=== PATIENT | male | born 1955 | race American Indian/Alaskan Native ===

== ENCOUNTER 2018-05-18 19:40 | Emergency (ER) | payer MEDICARE, OTHER ==
[2018-05-18 19:52] VITALS: BP 124/84; PULSE 89; RESP 20; TEMP 98.9
[2018-05-18] MEDS ORDERED: KETOROLAC 30 MG/ML 1 ML VIAL IM STA (20:40)
--- NOTE | 2018-05-18 21:02 | US ---
EXAMINATION TYPE: US venous doppler duplex LE RT DATE OF EXAM: 05/18/2018 8:55 PM COMPARISON: NONE CLINICAL HISTORY: Pain, swelling, redness right leg. SIDE PERFORMED: Right TECHNIQUE: The lower extremity deep venous system is examined utilizing real time linear array sonog delaney with graded compression, doppler sonography and color-flow sonography. VESSELS IMAGED: External Iliac Vein (EIV) Common Femoral Vein Deep Femoral Vein Greater Saphenous Vein * Femoral Vein Popliteal Vein Small Saphenous Vein * Proximal Calf Veins (* superficial vessels) Right Leg: Negative for DVT IMPRESSION: Grayscale, color doppler, spectral doppler imaging performed of the deep veins of the lo wer extremities. There is normal flow, compressibility, vascular waveforms. No evidence of deep higinio ous thrombosis at or above the right knee.
--- NOTE | 2018-05-18 21:28 | ED ---
General Adult HPI - General Chief complaint: Extremity Problem,Nontraumatic Stated complaint: Edema Time Seen by Provider: 05/18/18 19:54 Source: patient, RN notes reviewed Mode of arrival: ambulatory Limitations: no limitations - History of Present Illness Initial comments: 62-year-old male presents to the emergency department for a chief complaint of right lower extremity pain and swelling for the past few days. Patient states it is painful to walk. Patient states it is much more swollen than his other leg. Patient denies any fevers or chills at home. Patient denies any history of diabetes. No history of blood clots. Patient has not taken anything for the pain. Patient has no other complaints at this time including shortness of breath, chest pain, abdominal pain, nausea or vomiting, headache, or visual changes. - Related Data Home Medications Medication Instructions Recorded Confirmed HYDROcodone/APAP 10-325MG [[place] 10 - 325 mg PO Q8HR PRN 09/04/16 05/19/17 10-325] Previous Rx's Medication Instructions Recorded ARIPiprazole IM [Abilify Maintena] 400 mg IM QMONTH #1 vial 09/15/16 ARIPiprazole [Abilify] 20 mg PO HS #12 tab 09/15/16 Benztropine Mesylate [Cogentin] 0.5 mg PO BID PRN #60 tab 09/15/16 Carvedilol [Coreg] 3.125 mg PO BID-W/MEALS #60 tab 09/15/16 Divalproex Sodium [Divalproex 1,500 mg PO HS #90 tab.er.24h 09/15/16 Sodium ER] Furosemide [Lasix] 40 mg PO BID@0900,1600 #30 tab 09/15/16 Levothyroxine Sodium [Synthroid] 50 mcg PO DAILY@0630 #30 tab 09/15/16 [place] Carbonate ER [Lithobid] 450 mg PO DAILY #30 tablet.er 09/15/16 [place] Carbonate ER [Lithobid] 900 mg PO HS #60 tablet.er 09/15/16 Losartan [Cozaar] 25 mg PO DAILY #30 tab 09/15/16 Nicotine 21Mg/24Hr Patch [Habitrol] 1 patch TRANSDERM DAILY #14 patch 09/15/16 Potassium Chloride ER [K-Dur 20] 20 meq PO BID #30 tab.er.prt 09/15/16 traZODone HCL [Desyrel] 50 mg PO HS #30 tab 09/15/16 Amoxicillin/Potassium Clav 1 tab PO Q12HR #20 tab 05/18/18 [Augmentin 875-125 Tablet] Allergies Allergy/AdvReac Type Severity Reaction Status Date / Time haloperidol [From Haldol] Allergy Unknown Verified 05/18/18 19:51 haloperidol lactate Allergy Unknown Verified 05/18/18 19:51 [From Haldol] Phenothiazines Allergy Unknown Verified 05/18/18 19:51 Review of Systems ROS Statement: Those systems with pertinent positive or pertinent negative responses have been documented in the HPI. ROS Other: All systems not noted in ROS Statement are negative. Past Medical History Past Medical History: Heart Failure, Hypertension, Thyroid Disorder History of Any Multi-Drug Resistant Organisms: None Reported Past Surgical History: Orthopedic Surgery Past Psychological History: Anxiety, Depression, Schizophrenia Smoking Status: Current every day smoker Past Alcohol Use History: Occasional Past Drug Use History: None Reported General Exam Limitations: no limitations General appearance: alert, in no apparent distress Head exam: Present: atraumatic, normocephalic, normal inspection Eye exam: Present: normal appearance. Absent: scleral icterus, conjunctival injection ENT exam: Present: normal exam, mucous membranes moist Neck exam: Present: normal inspection, full ROM. Absent: tenderness, meningismus, lymphadenopathy Respiratory exam: Present: normal lung sounds bilaterally. Absent: respiratory distress, wheezes, rales, rhonchi, stridor Cardiovascular Exam: Present: regular rate, normal rhythm, normal heart sounds. Absent: systolic murmur, diastolic murmur, rubs, gallop, clicks Extremities exam: Present: full ROM (full ROM of the right knee and ankle), tenderness (tenderness to the right lower extremity on the anterior and posterior aspects.), normal capillary refill (cap refill < 2 seconds and pedal pulse 2+ in the RLE.), pedal edema (2+ pitting edema of the RLE), calf tenderness (neg james sign), other (Patient has erythema and edema of the circumferential right lower leg. Warm to touch.) Course Vital Signs 05/18/18 19:48 Temperature 98.9 F Pulse Rate 89 Respiratory 20 Rate Blood Pressure 124/84 O2 Sat by Pulse 98 Oximetry Medical Decision Making - Medical Decision Making 62-year-old male presents to the emergency department for a chief complaint of right lower extremity pain. This has been going on for the past few days. Patient denies fevers or chills at home. Patient denies history of diabetes. No history of blood clots. Vitals within normal limits. On exam patient does have erythema noted of the right lower leg as well as significant swelling and edema. Neurovascular intact with pedal pulse 2+ in the right lower extremity. Patient adamantly refused blood work. Patient left AMA without notifying anyone before ultrasound could be read. Negative for DVT. Patient likely has a cellulitis that I would recommend IV antibiotics and admission for. Per Dr Herman , will attempt to call in oral antibiotics for patient with advice to return to ER. Disposition Clinical Impression: Leg pain, left Disposition: Left Against Medical Advice Prescriptions: Amoxicillin/Potassium Clav [Augmentin 875-125 Tablet] 1 tab PO Q12HR #20 tab Is patient prescribed a controlled substance at d/c from ED?: No Referrals: [facility] [Primary Care Provider] - 1-2 days Time of Disposition: 21:28
== END 2018-05-18 21:06 | disposition left against medical advice (07) ==
LOC: EC 19:40
DX: M79.605 Pain in left leg (principal); R60.0 Localized edema; L53.9 Erythematous condition, unspecified; M79.604 Pain in right leg; F17.200 Nicotine dependence, unspecified, uncomplicated; Z88.8 Allergy status to other drugs, medicaments and biological substances
CPT/HCPCS: 99285

== ENCOUNTER 2018-05-24 15:50 | Inpatient (IN) | payer MEDICARE, MEDICAID ==
--- NOTE | 2018-05-24 16:25 | ED ---
General Adult HPI - General Chief complaint: Psychiatric Symptoms Stated complaint: Petition Time Seen by Provider: 05/24/18 15:55 Source: patient, police, RN notes reviewed, old records reviewed Mode of arrival: ambulatory Limitations: no limitations - History of Present Illness Initial comments: This is a 62-year-old male the ER for evaluation. This patient presents today for evaluation regards to altered mental state, aggression, patient is in court petition for psychiatric evaluation - Related Data Home Medications Medication Instructions Recorded Confirmed Cephalexin [Keflex] 500 mg PO Q8HR 05/22/18 05/24/18 Hydrochlorothiazide 12.5 mg PO DAILY 05/22/18 05/24/18 Multivit-Min/FA/Lycopen/Lutein 1 tab PO DAILY 05/22/18 05/24/18 [Centrum Silver Men Tablet] buPROPion XL [Wellbutrin Xl] 150 mg PO DAILY 05/22/18 05/24/18 ARIPiprazole [Abilify] 10 mg PO DAILY 05/24/18 05/24/18 Previous Rx's Medication Instructions Recorded Carvedilol [Coreg] 3.125 mg PO BID-W/MEALS #60 tab 09/15/16 [place] Carbonate ER [Lithobid] 450 mg PO DAILY #30 tablet.er 09/15/16 [place] Carbonate ER [Lithobid] 900 mg PO HS #60 tablet.er 09/15/16 Allergies Allergy/AdvReac Type Severity Reaction Status Date / Time haloperidol [From Haldol] Allergy Unknown Verified 05/24/18 16:09 haloperidol lactate Allergy Unknown Verified 05/24/18 16:09 [From Haldol] Phenothiazines Allergy Unknown Verified 05/24/18 16:09 Review of Systems ROS Statement: Those systems with pertinent positive or pertinent negative responses have been documented in the HPI. ROS Other: All systems not noted in ROS Statement are negative. Past Medical History Past Medical History: Heart Failure, Hypertension, Thyroid Disorder History of Any Multi-Drug Resistant Organisms: None Reported Past Surgical History: Orthopedic Surgery Past Psychological History: Anxiety, Depression, Schizophrenia Smoking Status: Current every day smoker Past Alcohol Use History: Occasional Past Drug Use History: None Reported General Exam Limitations: no limitations General appearance: alert, in no apparent distress Head exam: Present: atraumatic, normocephalic, normal inspection Eye exam: Present: normal appearance, PERRL, EOMI. Absent: scleral icterus, conjunctival injection, periorbital swelling ENT exam: Present: normal exam, mucous membranes moist Neck exam: Present: normal inspection. Absent: tenderness, meningismus, lymphadenopathy Respiratory exam: Present: normal lung sounds bilaterally. Absent: respiratory distress, wheezes, rales, rhonchi, stridor Cardiovascular Exam: Present: regular rate, normal rhythm, normal heart sounds. Absent: systolic murmur, diastolic murmur, rubs, gallop, clicks GI/Abdominal exam: Present: soft, normal bowel sounds. Absent: distended, tenderness, guarding, rebound, rigid Extremities exam: Present: normal inspection, full ROM, normal capillary refill. Absent: tenderness, pedal edema, joint swelling, calf tenderness Back exam: Present: normal inspection Neurological exam: Present: alert, oriented X3, CN II-XII intact Psychiatric exam: Present: normal affect, normal mood Skin exam: Present: warm, dry, intact, normal color. Absent: rash Course Vital Signs 05/24/18 15:53 Temperature 99.3 F Pulse Rate 86 Respiratory 18 Rate Blood Pressure 124/81 O2 Sat by Pulse 99 Oximetry - Reevaluation(s) Reevaluation #1: 05/24/18 16:25 Patient medically cleared and seen by psych Medical Decision Making - Medical Decision Making 62 male the ER for evaluation will be admitted for psychiatric evaluation and treatment Disposition Clinical Impression: Acute psychosis, Schizoaffective disorder, bipolar type Disposition: TRANSFER TO PSYCH HOSP/UNIT Condition: Fair Is patient prescribed a controlled substance at d/c from ED?: No Referrals: [facility] [Primary Care Provider] - 1-2 days
[2018-05-24 16:32] LABS: Amphetamine Screen,Urine Not Detected (NotDetected); Barbiturate Screen,Urine Not Detected (NotDetected); Benzodiazepines Screen,Urine Not Detected (NotDetected); Cocaine Screen,Urine Detected (NotDetected); Methadone Screen, Urine Not Detected (NotDetected); Opiate Screen,Urine Not Detected (NotDetected); Oxycodone Screen, Urine Not Detected (NotDetected); Phencyclidine Screen,Urine Not Detected (NotDetected); Tricyclic Antidepressant,Urine Not Detected (NotDetected); Urn Cannabinoid Scrn Not Detected (NotDetected)
[2018-05-24 18:14] LABS: Amorphous Sediment,Urine Rare /hpf; Appearance,Urine Clear (Clear); Bilirubin,Urine Negative (Negative); Blood,Urine Trace (Negative); Color,Urine Yellow; Glucose,Urine (UA) Negative (Negative); Ketones,Urine Negative (Negative); Leukocyte Esterase,Urine Negative (Negative); Nitrite,Urine Negative (Negative); Protein,Urine Negative (Negative); RBC,Urine 13 /hpf (0-5); Specific Gravity,Urine 1.011 (1.001-1.035); Urobilinogen,Urine <2.0 mg/dL (<2.0); WBC,Urine <1 /hpf (0-5)
[2018-05-24 18:24] LABS: Basophils # (A) 0.1 k/uL (0-0.2); Basophils % (A) 1 %; Eosinophils # (A) 0.5 k/uL (0-0.7); Eosinophils % (A) 5 %; HGB 12.5 gm/dL (13.0-17.5); Lymphocytes % (A) 20 %; MCH 29.3 pg (25.0-35.0); MCHC 31.9 g/dL (31.0-37.0); MCV 91.7 fL (80.0-100.0); Mean Platelet Volume 6.7; Monocytes # (A) 0.4 k/uL (0-1.0); Monocytes % (A) 4 %; Neutrophils % (A) 70 %; Platelet Count 343 k/uL (150-450); RBC 4.25 m/uL (4.30-5.90); RDW 13.2 % (11.5-15.5)
[2018-05-24 18:34] LABS: ALT 49 U/L (21-72); AST 59 U/L (17-59); Albumin 4.5 g/dL (3.5-5.0); Alkaline Phosphatase 77 U/L (38-126); Anion Gap 10 mmol/L; Blood Urea Nitrogen 18 mg/dL (9-20); Calcium 9.4 mg/dL (8.4-10.2); Carbon Dioxide 27 mmol/L (22-30); Chloride 102 mmol/L (98-107); Glucose 99 mg/dL (74-99); Potassium 4.1 mmol/L (3.5-5.1); Sodium 139 mmol/L (137-145); Total Bilirubin 0.4 mg/dL (0.2-1.3)
[2018-05-24 19:04] LABS: Lithium 0.3 mmol/L
[2018-05-24] MEDS ORDERED: ZIPRASIDONE 20 MG VIAL IM PRN (19:22)
[2018-05-24] MEDS ORDERED: MAGNESIUM HYDROXIDE 2,400 MG/10 ML CUP PO PRN (19:22)
[2018-05-24] MEDS ORDERED: LORazepam 2 MG/ML INJ IM PRN (19:58)
[2018-05-24] MEDS: LORazepam 1 MG TAB PO PRN (20:48)
[2018-05-25] MEDS ORDERED: CEPHALEXIN 500 MG CAP PO SCH
[2018-05-25] MEDS: NICOTINE 21MG/24HR PATCH TRANSDERM SCH ×2 (03:18→09:06)
[2018-05-25] MEDS: LORazepam 1 MG TAB PO PRN ×2 (03:18→12:42)
[2018-05-25] MEDS: ACETAMINOPHEN TAB 325 MG TAB PO PRN (04:16)
[2018-05-25] MEDS: CARVEDILOL 3.125 MG TAB PO SCH ×2 (08:38→16:33)
[2018-05-25] MEDS: HYDROCHLOROTHIAZIDE 12.5 MG CAP PO SCH (08:38)
[2018-05-25] MEDS: ARIPiprazole 10 MG TAB PO SCH (08:40)
[2018-05-25] MEDS: MULTIVITAMINS, THERA 1 EACH TAB PO SCH (08:40)
[2018-05-25] MEDS: buPROPion XL 150 MG TAB.ER.24H PO SCH (08:40)
[2018-05-25] MEDS: CEPHALEXIN 500 MG CAP PO SCH ×3 (08:41→21:14)
--- NOTE | 2018-05-25 18:54 | P.HP ---
Psychiatric H&P - . H&P Date: 05/25/18 History & Physical: Allergies Allergy/AdvReac Type Severity Reaction Status Date / Time haloperidol [From Haldol] Allergy Unknown Verified 05/24/18 16:09 haloperidol lactate Allergy Unknown Verified 05/24/18 16:09 [From Haldol] Phenothiazines Allergy Unknown Verified 05/24/18 16:09 Vital Signs Temp 98.3 F 05/25/18 01:33 Pulse 84 05/25/18 16:35 Resp 16 05/25/18 16:35 BP 129/74 05/25/18 16:35 Pulse Ox 92 L 05/24/18 19:15 Intake & Output 05/24/18 05/25/18 05/25/18 18:59 06:59 18:59 Weight 108.862 kg Laboratory Last Values WBC 10.0 k/uL (3.8-10.6) 05/24/18 18:15 RBC 4.25 m/uL (4.30-5.90) L 05/24/18 18:15 Hgb 12.5 gm/dL (13.0-17.5) L 05/24/18 18:15 Hct 39.0 % (39.0-53.0) 05/24/18 18:15 MCV 91.7 fL (80.0-100.0) 05/24/18 18:15 MCH 29.3 pg (25.0-35.0) 05/24/18 18:15 MCHC 31.9 g/dL (31.0-37.0) 05/24/18 18:15 RDW 13.2 % (11.5-15.5) 05/24/18 18:15 Plt Count 343 k/uL (150-450) 05/24/18 18:15 Neutrophils % 70 % 05/24/18 18:15 Lymphocytes % 20 % 05/24/18 18:15 Monocytes % 4 % 05/24/18 18:15 Eosinophils % 5 % 05/24/18 18:15 Basophils % 1 % 05/24/18 18:15 Neutrophils # 7.0 k/uL (1.3-7.7) 05/24/18 18:15 Lymphocytes # 2.0 k/uL (1.0-4.8) 05/24/18 18:15 Monocytes # 0.4 k/uL (0-1.0) 05/24/18 18:15 Eosinophils # 0.5 k/uL (0-0.7) 05/24/18 18:15 Basophils # 0.1 k/uL (0-0.2) 05/24/18 18:15 Sodium 139 mmol/L (137-145) 05/24/18 18:15 Potassium 4.1 mmol/L (3.5-5.1) 05/24/18 18:15 Chloride 102 mmol/L (98-107) 05/24/18 18:15 Carbon Dioxide 27 mmol/L (22-30) 05/24/18 18:15 Anion Gap 10 mmol/L 05/24/18 18:15 BUN 18 mg/dL (9-20) 05/24/18 18:15 Creatinine 1.00 mg/dL (0.66-1.25) 05/24/18 18:15 Est GFR (CKD-EPI)AfAm >90 (>60 ml/min/1.73 sqM) 05/24/18 18:15 Est GFR (CKD-EPI)NonAf 81 (>60 ml/min/1.73 sqM) 05/24/18 18:15 Glucose 99 mg/dL (74-99) 05/24/18 18:15 Calcium 9.4 mg/dL (8.4-10.2) 05/24/18 18:15 Total Bilirubin 0.4 mg/dL (0.2-1.3) 05/24/18 18:15 AST 59 U/L (17-59) 05/24/18 18:15 ALT 49 U/L (21-72) 05/24/18 18:15 Alkaline Phosphatase 77 U/L (38-126) 05/24/18 18:15 Total Protein 7.0 g/dL (6.3-8.2) 05/24/18 18:15 Albumin 4.5 g/dL (3.5-5.0) 05/24/18 18:15 TSH 1.950 mIU/L (0.465-4.680) 05/24/18 18:15 Urine Color Yellow 05/24/18 16:47 Urine Appearance Clear (Clear) 05/24/18 16:47 Urine pH 6.0 (5.0-8.0) 05/24/18 16:47 Ur Specific [place] 1.011 (1.001-1.035) 05/24/18 16:47 Urine Protein Negative (Negative) 05/24/18 16:47 Urine Glucose (UA) Negative (Negative) 05/24/18 16:47 Urine Ketones Negative (Negative) 05/24/18 16:47 Urine Blood Trace (Negative) H 05/24/18 16:47 Urine Nitrite Negative (Negative) 05/24/18 16:47 Urine Bilirubin Negative (Negative) 05/24/18 16:47 Urine Urobilinogen <2.0 mg/dL (<2.0) 05/24/18 16:47 Ur Leukocyte Esterase Negative (Negative) 05/24/18 16:47 Urine RBC 13 /hpf (0-5) H 05/24/18 16:47 Urine WBC <1 /hpf (0-5) 05/24/18 16:47 Amorphous Sediment Rare /hpf (None) H 05/24/18 16:47 Urine Opiates Screen Not Detected (NotDetected) 05/24/18 16:11 Ur Oxycodone Screen Not Detected (NotDetected) 05/24/18 16:11 Urine Methadone Screen Not Detected (NotDetected) 05/24/18 16:11 Ur Propoxyphene Screen Not Detected (NotDetected) 05/24/18 16:11 Ur Barbiturates Screen Not Detected (NotDetected) 05/24/18 16:11 U Tricyclic Antidepress Not Detected (NotDetected) 05/24/18 16:11 Ur Phencyclidine Scrn Not Detected (NotDetected) 05/24/18 16:11 Ur Amphetamines Screen Not Detected (NotDetected) 05/24/18 16:11 U Methamphetamines Scrn Not Detected (NotDetected) 05/24/18 16:11 U Benzodiazepines Scrn Not Detected (NotDetected) 05/24/18 16:11 [place] 0.3 mmol/L 05/24/18 18:15 Urine Cocaine Screen Detected (NotDetected) H 05/24/18 16:11 U Marijuana (THC) Screen Not Detected (NotDetected) 05/24/18 16:11 05/25/18 18:54 Identifying information Patient is 62 year old male. He is single, living in a basement apartment with his girlfriend. 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 He is currently on SSI. Chief complaint [facility] brought me here. I told them if you dont change certain things around here I might go postal. History of presenting illness Patient was petitioned by the [facility] due to his threatening and aggressive behaviors. Patient claims to have stopped taking his wellbutrin and abilify two weeks ago. He says wellbutrin is not for him and says he is depressed to take that medication. He also states he doesnt like abilify. He claims he has got more experience working with mentally ill people for 27 years. He claims to have written a book on how to take care of people with cocaine addiction. He was very loud and agitated during the interview. He denies current symptoms of depression. He denies current suicidal or homicidal ideations. He says he did not threaten anybody at the [facility] and claims they misunderstood him. He reports feeling safe to go back to his apartment. He reports he is planning to get to his girlfriend. He denies current auditory or visual hallucinations. He denies paranoia. He however states he gets irritable and angry if anyone says anything bad to him. He is very vague and evasive during the interview. He denies most of the symptoms. Past psychiatric history He reports being started on psychiatric medications following his first hospitalization around the age of 19. He reports numerous hospitalizations since then at various hospitals. He reports most of his hospitalizations are due to his bipolar disorder. He claims to have committed suicide four times but was unable to give details saying he doesnt remember. He denies any recent suicidal attempts. He reports being treated with various psychiatric medications. Per [facility] patient has established history of medication non compliance. Substance use history UDS positive for cocaine at the time of admission He reports us e of cocaine since 2006. He says the longest period he stayed sober was six months. He reports his last use of cocaine was few days ago. He claims to have used a dime of cocaine. He denies use of other illicit drugs. He claims to have received rehab treatments before details not known. Medical history Heart Failure, Hypertension, Thyroid Disorder, knee pain, cellulitis of both legs. Allergies Per medical records Haldol, phenothiazines Social history Born in [place], [place]. Raised by both parents. He describes his childhood being great. Denies history of abuse. Reports he has 3 sisters and two older brothers and one younger brother. He claims to have had thirteen and half years of education. Mental status exam 62 year old male. He appears his stated age. He is tall and thin built. He appears in fair grooming and hygiene. He maintains good eye contact. No abnormal movements noted. His speech and thought process are pressured, tangential with flight of ideas. He denies current auditory or visual hallucinations. He is paranoid, grandiose. He is agitated and restless during the interview. He is alert and oriented X 4. He denies current suicidal or homicidal ideations. His insight and judgment are impaired. Diagnosis Bipolar disorder current episode ninfa Plan 62-year-old male admitted through emergency department on a petition and clinical cert due to threatening and aggressive behaviors. Medicine consult for initial history physical examination psychosocial evaluation. Continue his out patient medications wellbutrin, lithium and abilify. (His lithium level at the time of admission was 0.3) Monitor for symptoms will receive milieu therapy group therapy individual therapy occupational therapy recreational therapy and medication education. Will complete the second clinical cert today Treatment goals: Medication stabilization Social work to co-ordinate discharge plans Insight improvement and encourage treatment adherence development of better coping skills and substance abuse counselling Discharge with outpatient follow-up. Treatment goals: By the time of discharge his symptoms should subside and should not interfere with his daily activities. He should be able to live and function well in the community Will remain motivated to abstain from illicit drug use. Will accept and remain adherent with treatment
[2018-05-25] MEDS: LITHIUM CARBONATE 300 MG CAP PO SCH (21:14)
--- NOTE | 2018-05-25 21:57 | P.MDCNMH ---
History of Present Illness H&P Date: 05/25/18 Chief Complaint: medical management 62 year old male , denies any past medical history , petitioned for inpatient psych due to aggressive behavior. patient currently denies any chest pain, trouble breathing, headache, fever, or chills. denies any abd pain, nausea or vomiting, denies any GI bleeding. he never had colonoscopy done, but reports having occult blood test negative in his stool . patient admits to smoking cigarettes and cocaine. denies any alcohol use. he has no medical concerns at this time patient reports chronic skin changes over his bilateral lower extremities worse on the right compared to the left, with leg swelling toward the end of the day . Review of Systems Pertinent positives as noted in HPI. All other systems were reviewed and are negative Past Medical History Past Medical History: Heart Failure, Hypertension, Thyroid Disorder History of Any Multi-Drug Resistant Organisms: None Reported Past Surgical History: Orthopedic Surgery Past Psychological History: Anxiety, Depression, Schizophrenia Smoking Status: Current every day smoker Past Alcohol Use History: Occasional Past Drug Use History: None Reported Medications and Allergies Home Medications Medication Instructions Recorded Confirmed Type Carvedilol [Coreg] 3.125 mg PO BID-W/MEALS #60 tab 09/15/16 05/24/[address] [place] Carbonate ER [Lithobid] 450 mg PO DAILY #30 tablet.er 09/15/16 05/24/[address] [place] Carbonate ER [Lithobid] 900 mg PO HS #60 tablet.er 09/15/16 05/24/18 Rx Cephalexin [Keflex] 500 mg PO Q8HR 05/22/18 05/24/18 History Hydrochlorothiazide 12.5 mg PO DAILY 05/22/18 05/24/18 History Multivit-Min/FA/Lycopen/Lutein 1 tab PO DAILY 05/22/18 05/24/18 History [Centrum Silver Men Tablet] buPROPion XL [Wellbutrin Xl] 150 mg PO DAILY 05/22/18 05/24/18 History ARIPiprazole [Abilify] 10 mg PO DAILY 05/24/18 05/24/18 History Allergies Allergy/AdvReac Type Severity Reaction Status Date / Time haloperidol [From Haldol] Allergy Unknown Verified 05/24/18 16:09 haloperidol lactate Allergy Unknown Verified 05/24/18 16:09 [From Haldol] Phenothiazines Allergy Unknown Verified 05/24/18 16:09 Physical Exam Vitals: Vital Signs Temp Pulse Pulse Pulse Resp BP BP 05/24/18 20:50 87 140/82 05/24/18 19:15 98.7 F 86 15 05/24/18 18:50 86 15 148/75 05/24/18 15:53 99.3 F 86 18 124/81 BP Pulse Ox 05/24/18 20:50 05/24/18 19:15 130/79 92 L 05/24/18 18:50 92 L 05/24/18 15:53 99 Intake and Output 05/24/18 05/24/18 05/24/18 06:59 14:59 22:59 Other: Weight 108.862 kg Constitutional: No acute distress, conversant, pleasant Eyes: Anicteric sclerae, moist conjunctiva, no lid-lag Pupils equal round reactive to light ENMT: NC/AT Oropharynx clear, no erythema, or exudates Neck: Supple, FROM, no masses, or JVD No carotid bruits No thyromegaly Lungs: Clear to auscultation Clear to percussion Normal respiratory effort, no accessory muscle use Cardiovascular: Heart regular in rate and rhythm, No murmurs, gallops, or rubs No peripheral edema Abdominal: Soft Nontender, no guarding, rebound or rigidity Abdomen moving with respiration Normoactive bowel sounds No hepatomegaly, No splenomegaly No palpable mass No abdominal wall hernia noted Skin: Normal temperature, tone, texture, turgor No induration No subcutaneous nodules No rash, lesions No ulcers chronic bilateral skin changes over his legs , worse over the right leg compared to the left,. Tortuous dilated leg veins Extremities: No digital cyanosis No clubbing Pedal pulses intact and symmetrical Radial pulses intact and symmetrical No calf tenderness Psychiatric: Alert and oriented to person, place and time Appropriate affect fair judgment Neuro Muscles Strength 5/5 in all 4 extremities Sensation to light touch grossly present throughout Cranial nerves II-XII grossly intact No focal sensory deficits Lymphatics: no palpable cervical or supraclavicular , or inguinal lymph nodes Cranial Nerve Examination - Cranial Nerves Cranial Nerve II- Optic: Intact Cranial Nerve III- Oculomotor: Intact Cranial Nerve IV- Trochlear: Intact Cranial Nerve V- Trigeminal: Intact Cranial Nerve - Abducens: Intact Cranial Nerve VII- Facial: Intact Cranial Nerve VIII- Auditory: Intact Cranial Nerve IX- Glossopharyngeal: Intact Cranial Nerve X- Vagus: Intact Cranial Nerve XI- Accessory: Intact Cranial Nerve XII- Hypoglossal: Intact Results CBC & Chem 7: 05/24/18 18:15 05/24/18 18:15 Labs: Abnormal Lab Results - Last 24 Hours (Table) 05/24/18 05/24/18 05/24/18 Range/Units 16:11 16:47 18:15 RBC 4.25 L (4.30-5.90) m/uL Hgb 12.5 L (13.0-17.5) gm/dL Urine Blood Trace H (Negative) Urine RBC 13 H (0-5) /hpf Amorphous Sediment Rare H (None) /hpf Urine Cocaine Screen Detected H (NotDetected) Assessment and Plan Assessment: 62-year-old male with no significant past medical history petition to the psych paige due to aggressive behavior diagnosed with bipolar disorder medicine was consulted for medical management, patient has bilateral skin changes over his lower extremities worse on the right versus the left related to chronic dermatosis secondary to chronic varicose veins Plan: Aggressive behavior secondary to bipolar disorder Management per psych Chronic varicose veins bilateral lower extremities Compression stockings offered Polysubstance abuse Patient counseled to quit smoking Patient counseled to avoid drug of abuse including cocaine and his case DVT prophylaxis low-risk patient is ambulatory Mild anemia Patient denies GI bleeding Patient counseled to consider colonoscopy as an outpatient Labs reviewed Thank you for allowing us to participate in the care of this patient. We will follow peripherally. Do not hesitate to contact us with questions. Someone can be reached from the [facility] hospitalist group at all hours of the day at [phone].
[2018-05-26] MEDS: LORazepam 1 MG TAB PO PRN ×2 (00:44→08:51)
[2018-05-26] MEDS: MAG HYDROX/AL HYDROX/SIMETH 30 ML CUP PO PRN ×2 (02:14→10:40)
[2018-05-26] MEDS: ACETAMINOPHEN TAB 325 MG TAB PO PRN ×2 (02:30→16:00)
[2018-05-26 02:38] LABS: Cholesterol 145 mg/dL (<200); HDL Cholesterol 50 mg/dL (40-60); LDL Cholesterol,Calculated 73 mg/dL (0-99); Triglycerides 111 mg/dL (<150)
[2018-05-26] MEDS ORDERED: ZIPRASIDONE 40 MG CAP PO STA (02:52)
[2018-05-26] MEDS ORDERED: BENZOCAINE 20 % GEL 15 GM TUBE MM PRN (03:10)
[2018-05-26] MEDS: buPROPion XL 150 MG TAB.ER.24H PO SCH (08:51)
[2018-05-26] MEDS: HYDROCHLOROTHIAZIDE 12.5 MG CAP PO SCH (08:51)
[2018-05-26] MEDS: ARIPiprazole 10 MG TAB PO SCH (08:51)
[2018-05-26] MEDS: CARVEDILOL 3.125 MG TAB PO SCH ×2 (08:51→17:25)
[2018-05-26] MEDS: CEPHALEXIN 500 MG CAP PO SCH ×3 (08:51→21:03)
[2018-05-26] MEDS: MULTIVITAMINS, THERA 1 EACH TAB PO SCH (08:51)
[2018-05-26] MEDS: NICOTINE 21MG/24HR PATCH TRANSDERM SCH (08:52)
[2018-05-26] MEDS: LITHIUM CARBONATE 300 MG CAP PO SCH (09:00)
[2018-05-26] MEDS: LITHIUM CARBONATE ER 450 MG TABLET.ER PO SCH ×2 (09:58→21:02)
--- NOTE | 2018-05-26 18:22 | P.PN ---
Progress Note - Text Progress Note Date: 05/26/18 IDENTIFICATION DATA: 62-year-old male admitted through emergency department on a petition and clinical cert due to threatening and aggressive behaviors. INTERVAL HISTORY: the patient has been cooperative with medication as well as other treatment modalities, socializing with peers. denied side effects with medications, MENTAL STATUS EXAMINATION: The patient is alert and oriented 4 and in no apparent distressSpeech is loud and pressured. Mood is "okay" and affect is constricted. thought processes is tangential thought content is negative for suicidal or homicidal ideation. insight and judgment are limited ASSESSMENT AND PLAN: continue current treatment plan
[2018-05-27] MEDS: CARVEDILOL 3.125 MG TAB PO SCH ×2 (07:54→17:42)
[2018-05-27] MEDS: CEPHALEXIN 500 MG CAP PO SCH ×3 (08:45→22:03)
[2018-05-27] MEDS: buPROPion XL 150 MG TAB.ER.24H PO SCH (08:45)
[2018-05-27] MEDS: ARIPiprazole 10 MG TAB PO SCH (08:45)
[2018-05-27] MEDS: NICOTINE 21MG/24HR PATCH TRANSDERM SCH (08:45)
[2018-05-27] MEDS: MULTIVITAMINS, THERA 1 EACH TAB PO SCH (08:45)
[2018-05-27] MEDS: LITHIUM CARBONATE ER 450 MG TABLET.ER PO SCH ×2 (08:46→22:03)
[2018-05-27] MEDS: HYDROCHLOROTHIAZIDE 12.5 MG CAP PO SCH (08:46)
--- NOTE | 2018-05-27 09:32 | P.PN ---
Progress Note - Text Interval history: The patient is found in group he follows me to an interview room. The psychiatric evaluation and progress note were reviewed. He was admitted for agitated behavior while at [facility] and was brought in for evaluation. He has been continued on the Abilify lithium and Wellbutrin. He states he will comply with those medications and is willing to comply with and Abilify maintena injection again. I need to verify if that was his most recent treatment plan. He states he slept 2 hours. He states that he' s been attending groups. Staff report no agitated behavior while on the mental health unit. Mental status exam: The patient is a tall male appearing his stated age. He has long ferrari hair with a large cheng. He is dressed in his own clothing wearing a longsleeved T-shirt and jeans. Eye contact is appropriate. He has constant speech that is nonpressured. He is verbose but redirectable. He is fairly circumstantial and can be tangential at times. No flight of ideas. He demonstrates no verbal or physical aggressiveness. He is endorsing no hallucinations. He chronically has delusional thoughts. He was cooperative and pleasant. He is reporting no suicidal or homicidal ideation. Plan: The patient will be continued on his current medications. We will review [facility] records. If appropriate we will initiate Abilify maintena. We will monitor him for safety and encourage his participation in the milieu.
[2018-05-27 15:21] LABS: Hemoglobin A1C 5.6 % (4.0-6.0)
[2018-05-28] MEDS: ACETAMINOPHEN TAB 325 MG TAB PO PRN (06:53)
[2018-05-28] MEDS: LORazepam 1 MG TAB PO PRN (06:53)
[2018-05-28] MEDS: LITHIUM CARBONATE ER 450 MG TABLET.ER PO SCH ×2 (09:08→21:12)
[2018-05-28] MEDS: CARVEDILOL 3.125 MG TAB PO SCH ×2 (09:08→17:48)
[2018-05-28] MEDS: buPROPion XL 150 MG TAB.ER.24H PO SCH (09:08)
[2018-05-28] MEDS: MULTIVITAMINS, THERA 1 EACH TAB PO SCH (09:08)
[2018-05-28] MEDS: HYDROCHLOROTHIAZIDE 12.5 MG CAP PO SCH (09:08)
[2018-05-28] MEDS: NICOTINE 21MG/24HR PATCH TRANSDERM SCH (09:08)
[2018-05-28] MEDS: CEPHALEXIN 500 MG CAP PO SCH ×3 (09:08→21:12)
[2018-05-28] MEDS: ARIPiprazole 10 MG TAB PO SCH (09:08)
[2018-05-28] MEDS ORDERED: ARIPiprazole 400 MG VIAL (NO CHARGE) IM ONE (09:09)
--- NOTE | 2018-05-28 09:09 | P.PN ---
Progress Note - Text Interval history: The patient is found in the hallway he follows me to an interview room. Staff report that the patient's demonstrated no aggressive behavior however he did not sleep last night. They feel that he may have slept one half to one hour this morning. He agrees that he has not slept he is amenable to having us address this with the medication. We discussed trying trazodone. He prefers to use Klonopin but we want to avoid any further use of benzodiazepine if possible. Vital signs reviewed. He reports he is eating. He attempts group attendance. Mental status exam: The patient is a tall male with long hair and a cheng. He is dressed in his own clothing which is the same as yesterday. Hygiene is fair grooming is disheveled. Eye contact is appropriate. He has constant speech she is verbose it is not pressured and he maintains a normal tone of voice. He demonstrates some tangential thinking. He is reporting no current suicidal or homicidal thoughts. He has a smiling affect throughout the session which is at times incongruent to the conversation. Insight and judgment are limited. He demonstrates no verbal or physical aggressiveness. He demonstrates no abnormal involuntary movements. Plan: The patient will continue on his current psychotropic medications. We will initiate the Abilify maintena 400 mg daily. The patient is agreeable to receiving that medication. We will initiate trazodone 100 mg at bedtime to assist with sleep. We will monitor him for safety and encourage full participation in the milieu. He is not yet sufficiently stabilized for discharge.
[2018-05-28] MEDS ORDERED: ARIPiprazole IM SYRINGE 400 MG (NO CHARGE) IM ONE (09:30)
[2018-05-28] MEDS: traZODone HCL 100 MG TAB PO SCH (22:21)
[2018-05-29] MEDS: LORazepam 1 MG TAB PO PRN ×2 (02:16→23:05)
[2018-05-29] MEDS: CEPHALEXIN 500 MG CAP PO SCH ×3 (08:51→20:49)
[2018-05-29] MEDS: NICOTINE 21MG/24HR PATCH TRANSDERM SCH (08:51)
[2018-05-29] MEDS: buPROPion XL 150 MG TAB.ER.24H PO SCH (08:51)
[2018-05-29] MEDS: HYDROCHLOROTHIAZIDE 12.5 MG CAP PO SCH (08:52)
[2018-05-29] MEDS: CARVEDILOL 3.125 MG TAB PO SCH ×2 (08:52→16:41)
[2018-05-29] MEDS: LITHIUM CARBONATE ER 450 MG TABLET.ER PO SCH ×2 (08:52→20:49)
[2018-05-29] MEDS: MULTIVITAMINS, THERA 1 EACH TAB PO SCH (08:52)
[2018-05-29] MEDS: ARIPiprazole 10 MG TAB PO SCH (08:52)
--- NOTE | 2018-05-29 09:40 | P.PN ---
Progress Note - Text Interval history: The patient is found in the library he follows me to an interview room. He states his mood is okay. His sleep was improved to approximate 4 hours. He feels the trazodone did help. He reports participating in the milieu. He has no questions or concerns regarding his medication. Mental status exam: The patient is a tall male appearing his stated age. He has poor dentition and missing several teeth. He has long hair with a long cheng. He is dressed in the same clothing is yesterday. Eye contact is appropriate. Speech is fluent spontaneous he is verbose mildly pressured but he is directable. He demonstrates no verbal or physical aggressiveness. He is reporting no suicidal or homicidal ideation. Affect is overly bright. He is endorsing no auditory or visual hallucinations, he does likely have some residual delusional thought content. He demonstrates no abnormal involuntary movements. Plan: The patient will continue on his current medication. We will monitor him for safety and encourage his full participation in the milieu. I would anticipate discharging him towards the end of the week allowing him to stabilize further. Vital signs reviewed.
[2018-05-29 16:44] VITALS: RESP 18
[2018-05-29] MEDS: traZODone HCL 100 MG TAB PO SCH (20:49)
[2018-05-30 07:21] VITALS: TEMP 97.7
[2018-05-30] MEDS: CEPHALEXIN 500 MG CAP PO SCH ×3 (08:45→20:35)
[2018-05-30] MEDS: buPROPion XL 150 MG TAB.ER.24H PO SCH (08:45)
[2018-05-30] MEDS: NICOTINE 21MG/24HR PATCH TRANSDERM SCH (08:45)
[2018-05-30] MEDS: ARIPiprazole 10 MG TAB PO SCH (08:46)
[2018-05-30] MEDS: MULTIVITAMINS, THERA 1 EACH TAB PO SCH (08:46)
[2018-05-30] MEDS: LITHIUM CARBONATE ER 450 MG TABLET.ER PO SCH ×2 (08:46→20:35)
[2018-05-30] MEDS: HYDROCHLOROTHIAZIDE 12.5 MG CAP PO SCH (08:46)
[2018-05-30] MEDS: CARVEDILOL 3.125 MG TAB PO SCH ×2 (08:46→16:49)
--- NOTE | 2018-05-30 10:42 | P.PN ---
Progress Note - Text Interval history: The patient is found at the front desk person he follows me to an interview room. He reports that he slept well staff recorded he slept approxi- 5 hours. Appetite stable. Staff report no behavioral disturbances. We reviewed his medications again his questions were answered. We will draw another lithium level tomorrow as well as BUN and creatinine. He is reporting more stability of his mood and is looking forward to a discharge soon. Mental status exam: The patient is a tall male appearing his stated age. He has long hair but today it's braided. He is wearing a cheng. He is dressed in his own clothing he is wearing IVANNA hose with socks over top. He reports his mood is "beautiful". Affect is bright. He has a smiling affect. He does have spontaneous speech he is verbose he is directable today. He demonstrates no verbal or physical aggressiveness. He is reporting no suicidal or homicidal thoughts. He is endorsing no hallucinations. He likely has residual symptoms of psychosis in the form of delusions which are part of his baseline. He demonstrates no abnormal involuntary movements. He is oriented to person place and date. Plan: The patient will continue on his current medications. I will obtain a lithium level BUN and creatinine tomorrow morning. We will monitor him for safety and anticipate discharging him tomorrow if he is clinically stable.
[2018-05-30] MEDS: LORazepam 1 MG TAB PO PRN ×2 (15:15→23:46)
[2018-05-30] MEDS: traZODone HCL 100 MG TAB PO SCH (22:07)
--- NOTE | 2018-05-31 08:24 | P.DS ---
Providers Date of admission: 05/24/18 18:48 Expected date of discharge: 05/31/18 Attending physician: Varun Reyes Consults: 05/24/18 19:22 Consult Physician Routine Consulting Provider: Fina Physician Consult Reason/Comments: Follow up H & P Do you want consulting provider notified?: Yes Primary care physician: [facility] - Discharge Diagnosis(es) (1) Schizoaffective disorder, bipolar type Current Visit: Yes Status: Acute Priority: High (2) Cocaine use disorder Current Visit: Yes Status: Acute Priority: High (3) Cannabis use disorder, mild, abuse Current Visit: Yes Status: Acute Priority: Medium Hospital Course: Brief summary of admission note: This patient is a 62-year-old male who was admitted to the mental health unit on a petition from [facility] due to verbally aggressive statements and agitated behavior. Apparently the patient had stopped his medication 2 weeks prior to this admission. He admits to being at [facility] and threatening to "go postal". At presentation the patient also had cocaine in his system and he has a known cocaine use disorder. For full details please refer to the psychiatric evaluation dated 05/17/2018. Summary of hospital course: The patient was admitted to the mental health unit in voluntarily. He was evaluated by a [facility] psychiatrist who completed a second clinical certificate. I assumed care of the patient the following Sunday. We discussed his presenting symptoms and treatment options. He was amenable to restarting the oral Abilify as well as Wellbutrin and lithium. His lithium level at presentation was 0.3. We are awaiting results from his most recent lithium draw today. He was amenable to restarting Abilify maintena and 400 mg IM was given on 05/28/2018. We initiated trazodone for sleep and titrated to 100 mg at bedtime. The patient demonstrated no agitated behavior on the mental health unit and was quite directable. He participated in the milieu without difficulty. He was seen by internal medicine and was placed on Keflex for possible skin infection. The patient demonstrated progressive improvement while on the mental health unit. He did meet with his court appointed civil attorney and signed a treatment agreement deferring a court hearing. Mental status exam: The patient is a tall male appearing his stated age. Hygiene and grooming are improved. He is dressed in his own clothing. Eye contact is good speech is fluent spontaneous nonpressured. He demonstrates a range of affect. At times he can be expansive but does not appear hypomanic or manic. He is reporting no suicidal or homicidal ideation intent or plan. He demonstrates no verbal or physical aggressiveness. He demonstrates no abnormal involuntary movements. He is endorsing no auditory or visual hallucinations or any specific delusions. He likely has some continued residual delusional thought content. He is oriented to person place and date. He demonstrates future oriented thinking. Impressions 1. Schizoaffective disorder bipolar type, cocaine use disorder, cannabis use disorder Plan: The patient will be discharged from the mental health unit today to return to his own residence. Social work will arrange his outpatient psychiatric follow-up with [facility]. The patient is on a deferral agreement for treatment. He will continue on Abilify 10 mg for 1 more week, he is due for Abilify maintena 400 mg IM on 06/17/2018. He will continue on lithium carbonate 450 mg twice daily, trazodone 100 mg at bedtime, Wellbutrin XL 150 mg in the morning. We discussed the importance of him abstaining from alcohol marijuana cocaine or any other illicit drug. We discussed that it will exacerbate his psychosis and elevate his safety risk. He does not wish to participate in inpatient chemical dependency treatment. At this time there is no imminent safety risk is appropriate for transition back to outpatient care. He is instructed to return to the hospital with any acute safety concerns. Patient Condition at Discharge: Stable Plan - Discharge Summary Discharge Rx Participant: No New Discharge Prescriptions: New ARIPiprazole IM [Abilify Maintena] 400 mg IM QMONTH #1 vial [place] Carbonate ER [Lithobid] 450 mg PO BID #60 tablet.er Nicotine 21Mg/24Hr Patch [Habitrol] 1 patch TRANSDERM DAILY #10 patch traZODone HCL [Desyrel] 100 mg PO HS #100 tab Continue Carvedilol [Coreg] 3.125 mg PO BID-W/MEALS #60 tab Multivit-Min/FA/Lycopen/Lutein [Centrum Silver Men Tablet] 1 tab PO DAILY Hydrochlorothiazide 12.5 mg PO DAILY ARIPiprazole [Abilify] 10 mg PO DAILY #7 tab buPROPion XL [Wellbutrin XL] 150 mg PO DAILY #30 tab.er.24h Discontinued [place] Carbonate ER [Lithobid] 900 mg PO HS #60 tablet.er [place] Carbonate ER [Lithobid] 450 mg PO DAILY #30 tablet.er Cephalexin [Keflex] 500 mg PO Q8HR Discharge Medication List Carvedilol [Coreg] 3.125 mg PO BID-W/MEALS #60 tab 09/15/16 [Rx] Hydrochlorothiazide 12.5 mg PO DAILY 05/22/18 [History] Multivit-Min/FA/Lycopen/Lutein [Centrum Silver Men Tablet] 1 tab PO DAILY [History] ARIPiprazole IM [Abilify Maintena] 400 mg IM QMONTH #1 vial 05/31/18 [Rx] ARIPiprazole [Abilify] 10 mg PO DAILY #7 tab 05/31/18 [Rx] [place] Carbonate ER [Lithobid] 450 mg PO BID #60 tablet.er 05/31/18 [Rx] Nicotine 21Mg/24Hr Patch [Habitrol] 1 patch TRANSDERM DAILY #10 patch 05/31/18 [ Rx] buPROPion XL [Wellbutrin XL] 150 mg PO DAILY #30 tab.er.24h 05/31/18 [Rx] traZODone HCL [Desyrel] 100 mg PO HS #100 tab 05/31/18 [Rx] Follow up Appointment(s)/Referral(s): [facility] [Primary Care Provider] - 1-2 days
[2018-05-31] MEDS: NICOTINE 21MG/24HR PATCH TRANSDERM SCH (08:55)
[2018-05-31] MEDS: CEPHALEXIN 500 MG CAP PO SCH (08:55)
[2018-05-31] MEDS: MULTIVITAMINS, THERA 1 EACH TAB PO SCH (08:55)
[2018-05-31] MEDS: CARVEDILOL 3.125 MG TAB PO SCH (08:55)
[2018-05-31] MEDS: HYDROCHLOROTHIAZIDE 12.5 MG CAP PO SCH (08:55)
[2018-05-31] MEDS: buPROPion XL 150 MG TAB.ER.24H PO SCH (08:56)
[2018-05-31] MEDS: ARIPiprazole 10 MG TAB PO SCH (08:56)
[2018-05-31] MEDS: LITHIUM CARBONATE ER 450 MG TABLET.ER PO SCH (08:57)
[2018-05-31 09:00] VITALS: BP 109/68; PULSE 88
[2018-05-31 10:03] LABS: Blood Urea Nitrogen 18 mg/dL (9-20); Lithium 0.4 mmol/L
== END 2018-05-31 11:07 | disposition home or self-care (01) | DRG 885 ==
LOC: EC 15:50 → EEVIPCON 18:48 → 3MHU 18:48
PROVIDERS: ADMIT Psychiatry & Neurology Psychiatry; ATTEND Psychiatry & Neurology Psychiatry
DX: F25.0 Schizoaffective disorder, bipolar type (principal); L03.115 Cellulitis of right lower limb; L03.116 Cellulitis of left lower limb; F12.10 Cannabis abuse, uncomplicated; I11.0 Hypertensive heart disease with heart failure; I50.9 Heart failure, unspecified; E07.9 Disorder of thyroid, unspecified; F14.90 Cocaine use, unspecified, uncomplicated; F41.9 Anxiety disorder, unspecified; F32.9 Major depressive disorder, single episode, unspecified; F17.200 Nicotine dependence, unspecified, uncomplicated; Z79.899 Other long term (current) drug therapy; Z88.8 Allergy status to other drugs, medicaments and biological substances; Z91.14 Patient's other noncompliance with medication regimen
CPT/HCPCS: 36415; 80053; 80061; 80178; 80306; 81001; 82075; 82565; 83036; 84443; 84520; 85025; 93005; 99285

== ENCOUNTER 2018-06-07 | Observation (INO) | payer MEDICARE, OTHER ==
[2018-06-07] MEDS ORDERED: HALOPERIDOL LACTATE 5 MG/ML 1 ML VIAL IM PRN (00:42)
[2018-06-07] MEDS ORDERED: LORazepam 2 MG/ML INJ IM STA (00:45)
[2018-06-07] MEDS ORDERED: diphenhydrAMINE 50 MG/ML 1 ML VIAL IM STA (00:45)
--- NOTE | 2018-06-07 00:51 | ED ---
General Adult HPI - General Chief complaint: Psychiatric Symptoms Stated complaint: Mental Health Source: patient Mode of arrival: ambulatory Limitations: no limitations - History of Present Illness Initial comments: Dictation was produced using Eligible dictation software. please excuse any grammatical, word or spelling errors. Chief Complaint: 62-year-old male presents with aggressive behavior. History of Present Illness: She is 62-year-old male presents with aggressive behavior. Patient is well-known to the ER for aggressive behavior. He is admitted to our psychiatric unit multiple times. Patient is accompanied by friend. Friend reports that patient has been aggressive towards others people states that he is old money from another person. Chart review shows that patient has a history of bipolar disease. Patient denies any overt suicidal homicidal ideation. Chart review shows that patient has history of bipolar disease. Patient is a poor historian at this time. - Related Data Home Medications Medication Instructions Recorded Confirmed Hydrochlorothiazide 12.5 mg PO DAILY 05/22/18 06/07/18 Multivit-Min/FA/Lycopen/Lutein 1 tab PO DAILY 05/22/18 06/07/18 [Centrum Silver Men Tablet] Previous Rx's Medication Instructions Recorded Carvedilol [Coreg] 3.125 mg PO BID-W/MEALS #60 tab 09/15/16 ARIPiprazole IM [Abilify Maintena] 400 mg IM QMONTH #1 vial 05/31/18 ARIPiprazole [Abilify] 10 mg PO DAILY #7 tab 05/31/18 [place] Carbonate ER [Lithobid] 450 mg PO BID #60 tablet.er 05/31/18 Nicotine 21Mg/24Hr Patch [Habitrol] 1 patch TRANSDERM DAILY #10 patch 05/31/18 buPROPion XL [Wellbutrin XL] 150 mg PO DAILY #30 tab.er.24h 05/31/18 traZODone HCL [Desyrel] 100 mg PO HS #100 tab 05/31/18 Allergies Allergy/AdvReac Type Severity Reaction Status Date / Time haloperidol [From Haldol] Allergy Unknown Verified 06/07/18 00:14 haloperidol lactate Allergy Unknown Verified 06/07/18 00:14 [From Haldol] Phenothiazines Allergy Unknown Verified 06/07/18 00:14 Review of Systems ROS Statement: Those systems with pertinent positive or pertinent negative responses have been documented in the HPI. ROS Other: All systems not noted in ROS Statement are negative. Past Medical History Past Medical History: Heart Failure, Hypertension, Thyroid Disorder History of Any Multi-Drug Resistant Organisms: None Reported Past Surgical History: Orthopedic Surgery Past Psychological History: Anxiety, Depression, Schizophrenia Smoking Status: Current every day smoker Past Alcohol Use History: Occasional Past Drug Use History: None Reported General Exam - General Exam Comments Initial Comments: PHYSICAL EXAM: General Impression: Alert and oriented x3, aggressive HEENT: Normocephalic atraumatic, extra-ocular movements intact, pupils equal and reactive to light bilaterally, mucous membranes moist. Cardiovascular: Heart regular rate and rhythm, S1&S2 audible, no murmurs, rubs or gallops Chest: Lungs clear to auscultation bilaterally, no rhonchi, no wheeze, no rales Abdomen: Bowel sounds present, abdomen soft, non-tender, non-distended, no organomegaly Musculoskeletal: Pulses present and equal in all extremities, no peripheral edema Motor: Power 5/5 bilaterally, no focal deficits noted Neurological: CN II-XII grossly intact, no focal motor or sensory deficits noted Skin: Intact with no visualized rashes Psych: Threatening, aggressive, yelling Limitations: no limitations Course Vital Signs 06/07/18 00:11 Temperature 98.0 F Pulse Rate 86 Respiratory 20 Rate Blood Pressure 122/78 O2 Sat by Pulse 98 Oximetry Medical Decision Making - Medical Decision Making ED course: 63-year-old male presents with aggressive behavior. Vital signs upon arrival are within acceptable limits. Patient displaying very aggressive behavior. He is having angry outbursts calling people names. Patient given Haldol, Benadryl and Ativan.Laboratory evaluation obtained. CBC unremarkable. Hemoglobin is 11.9 which is at his baseline. Metabolic panel is negative. Urine drug screen shows positive for cocaine. Computed tomography scan was obtained showing no acute processes. Chest x-ray shows left lower lobe pneumonia. Patient given azithromycin. There is reasonably that patient's increased aggressive behavior is secondary to pneumonia. Patient given IV azithromycin. Patient be admitted for a quite pneumonia. EKG Interpretation: A 12 lead EKG was obtained. It was interpreted by myself. There is a P wave before every QRS complex. Rate is 72. Rhythm is normal sinus rhythm, MA interval 164, QS 90, QTC 462. QT is not prolonged. No ST segment depression or elevation. Overall, this EKG is unremarkable - Lab Data Result diagrams: 06/07/18 00:50 06/07/18 00:50 Lab Results 06/07/18 06/07/18 06/07/18 Range/Units 00:50 00:50 01:20 WBC 10.5 (3.8-10.6) k/uL RBC 3.96 L (4.30-5.90) m/uL Hgb 11.9 L (13.0-17.5) gm/dL Hct 35.5 L (39.0-53.0) % MCV 89.6 (80.0-100.0) fL MCH 30.1 (25.0-35.0) pg MCHC 33.6 (31.0-37.0) g/dL RDW 13.4 (11.5-15.5) % Plt Count 326 (150-450) k/uL Neutrophils % 63 % Lymphocytes % 26 % Monocytes % 4 % Eosinophils % 4 % Basophils % 1 % Neutrophils # 6.6 (1.3-7.7) k/uL Lymphocytes # 2.8 (1.0-4.8) k/uL Monocytes # 0.5 (0-1.0) k/uL Eosinophils # 0.5 (0-0.7) k/uL Basophils # 0.1 (0-0.2) k/uL Sodium 138 (137-145) mmol/L Potassium 4.0 (3.5-5.1) mmol/L Chloride 107 (98-107) mmol/L Carbon Dioxide 23 (22-30) mmol/L Anion Gap 8 mmol/L BUN 16 (9-20) mg/dL Creatinine 0.80 (0.66-1.25) mg/dL Est GFR (CKD-EPI)AfAm >90 (>60 ml/min/1.73 sqM) Est GFR (CKD-EPI)NonAf >90 (>60 ml/min/1.73 sqM) Glucose 93 (74-99) mg/dL Calcium 9.2 (8.4-10.2) mg/dL Total Bilirubin 0.5 (0.2-1.3) mg/dL AST 51 (17-59) U/L ALT 40 (21-72) U/L Alkaline Phosphatase 86 (38-126) U/L Total Protein 6.5 (6.3-8.2) g/dL Albumin 4.1 (3.5-5.0) g/dL Urine Opiates Screen Not Detected (NotDetected) Ur Oxycodone Screen Not Detected (NotDetected) Urine Methadone Screen Not Detected (NotDetected) Ur Propoxyphene Screen Not Detected (NotDetected) Ur Barbiturates Screen Not Detected (NotDetected) U Tricyclic Antidepress Not Detected (NotDetected) Ur Phencyclidine Scrn Not Detected (NotDetected) Ur Amphetamines Screen Not Detected (NotDetected) U Methamphetamines Scrn Not Detected (NotDetected) U Benzodiazepines Scrn Not Detected (NotDetected) Urine Cocaine Screen Detected H (NotDetected) U Marijuana (THC) Screen Not Detected (NotDetected) Serum Alcohol <10 mg/dL Disposition Clinical Impression: Pneumonia, Psychosis Disposition: ADMITTED IP TO THIS HOSP Referrals: [facility] [Primary Care Provider] - 1-2 days Time of Disposition: 02:49
[2018-06-07 01:00] LABS: Basophils # (A) 0.1 k/uL (0-0.2); Basophils % (A) 1 %; Eosinophils # (A) 0.5 k/uL (0-0.7); Eosinophils % (A) 4 %; HCT 35.5 % (39.0-53.0); HGB 11.9 gm/dL (13.0-17.5); Lymphocytes # (A) 2.8 k/uL (1.0-4.8); Lymphocytes % (A) 26 %; MCH 30.1 pg (25.0-35.0); MCHC 33.6 g/dL (31.0-37.0); MCV 89.6 fL (80.0-100.0); Mean Platelet Volume 7.2; Monocytes # (A) 0.5 k/uL (0-1.0); Monocytes % (A) 4 %; Neutrophils # (A) 6.6 k/uL (1.3-7.7); Neutrophils % (A) 63 %; Platelet Count 326 k/uL (150-450); RBC 3.96 m/uL (4.30-5.90); RDW 13.4 % (11.5-15.5); WBC 10.5 k/uL (3.8-10.6)
[2018-06-07 01:10] LABS: ALT 40 U/L (21-72); AST 51 U/L (17-59); Albumin 4.1 g/dL (3.5-5.0); Alcohol <10 mg/dL; Alkaline Phosphatase 86 U/L (38-126); Anion Gap 8 mmol/L; Blood Urea Nitrogen 16 mg/dL (9-20); Calcium 9.2 mg/dL (8.4-10.2); Carbon Dioxide 23 mmol/L (22-30); Chloride 107 mmol/L (98-107); Glucose 93 mg/dL (74-99); Sodium 138 mmol/L (137-145); Total Bilirubin 0.5 mg/dL (0.2-1.3); Total Protein 6.5 g/dL (6.3-8.2)
[2018-06-07 01:39] LABS: Amphetamine Screen,Urine Not Detected (NotDetected); Barbiturate Screen,Urine Not Detected (NotDetected); Benzodiazepines Screen,Urine Not Detected (NotDetected); Cocaine Screen,Urine Detected (NotDetected); Methadone Screen, Urine Not Detected (NotDetected); Opiate Screen,Urine Not Detected (NotDetected); Oxycodone Screen, Urine Not Detected (NotDetected); Phencyclidine Screen,Urine Not Detected (NotDetected); Tricyclic Antidepressant,Urine Not Detected (NotDetected); Urn Cannabinoid Scrn Not Detected (NotDetected)
--- NOTE | 2018-06-07 01:54 | CT ---
EXAMINATION TYPE: CT brain wo con DATE OF EXAM: 06/07/2018 COMPARISON: 08/13/2016 HISTORY: Prior on synapse, pt here for mental health eval, pt angry/agitated/depressed CT DLP: 1123.40 mGycm Automated exposure control for dose reduction was used. FINDINGS: Ventricles and sulci appear normal. There is no mass effect nor midline shift. There is no sign of in tracranial hemorrhage. The calvarium is intact. IMPRESSION: NEGATIVE CT SCAN OF THE BRAIN. NO CHANGE.
--- NOTE | 2018-06-07 01:55 | XR ---
EXAMINATION TYPE: XR chest 1V DATE OF EXAM: 06/07/2018 COMPARISON: 07/03/2014 HISTORY: Chest pain TECHNIQUE: Single frontal view of the chest is obtained. FINDINGS: There is some patchy infiltrate in the left lower lobe. The other lung cain are clear. H eart and mediastinum are normal. There is no sign of pleural effusion. IMPRESSION: New left lower lobe pneumonia compared to old exam. Normal heart.
[2018-06-07] MEDS ORDERED: AMPICILLIN-SULBACTAM 3 GM in SODIUM CHLORIDE 0.9% 100 ML IVPB STA (02:11)
[2018-06-07] MEDS ORDERED: AZITHROMYCIN 500 MG TAB PO STA (02:26)
[2018-06-07] MEDS ORDERED: DOXYCYCLINE 50 MG CAP PO STA (02:27)
[2018-06-07] MEDS ORDERED: NALOXONE 0.4 MG/ML 1 ML VIAL IV PRN (02:43)
[2018-06-07] MEDS ORDERED: AZITHROMYCIN 500 MG in DEXTROSE 5% IN WATER 250 ML IVPB STA ×2 (02:46)
[2018-06-07 05:31] VITALS: BP 128/79; PULSE 66; RESP 16; TEMP 98.2
--- NOTE | 2018-06-07 06:51 | P.HPIM ---
History of Present Illness H&P Date: 06/07/18 Chief Complaint: aggressive behavior 62-year-old male presented to the hospital due to aggressive behavior, in the ER after further workup he was suspected to have pneumonia and was admitted for further treatment. Patient is currently stoned due to receiving Haldol in the emergency department earlier due to aggressive behavior. Patient was brought in by a friend who is not available at this time. Patient is unable to provide any meaningful history at this time due to the effect of Haldol and sleeping. When asked he would answer no to everything. I discussed not reliable at this time. I did discuss the case with with mental health unit nurse who evaluated the patient due to aggressive behavior she said patient is well-known to them and it is thought that this is the effect of drug abuse causing behavioral changes and they will not admitted to the psych unit at this time he is not suicidal or homicidal risk at this time. Further information should be obtained once the patient is more awake Review of Systems ROS unobtainable: due to mental status Past Medical History Past Medical History: Unable to Obtain, Heart Failure, Hypertension, Thyroid Disorder History of Any Multi-Drug Resistant Organisms: None Reported Past Surgical History: Unable to Obtain, Orthopedic Surgery Past Anesthesia/Blood Transfusion Reactions: Unable to Obtain Past Psychological History: Anxiety, Depression, Schizophrenia Smoking Status: Current every day smoker Past Alcohol Use History: Occasional Past Drug Use History: None Reported Medications and Allergies Home Medications Medication Instructions Recorded Confirmed Type Carvedilol [Coreg] 3.125 mg PO BID-W/MEALS #60 tab 09/15/16 06/07/18 Rx Hydrochlorothiazide 12.5 mg PO DAILY 05/22/18 06/07/18 History Multivit-Min/FA/Lycopen/Lutein 1 tab PO DAILY 05/22/18 06/07/18 History [Centrum Silver Men Tablet] ARIPiprazole IM [Abilify Maintena] 400 mg IM QMONTH #1 vial 05/31/18 06/07/18 Rx ARIPiprazole [Abilify] 10 mg PO DAILY #7 tab 05/31/18 06/07/18 Rx [employer] Carbonate ER [Lithobid] 450 mg PO BID #60 tablet.er 05/31/18 06/07/18 Rx Nicotine 21Mg/24Hr Patch [Habitrol] 1 patch TRANSDERM DAILY #10 patch 05/31/18 06/07/18 Rx buPROPion XL [Wellbutrin XL] 150 mg PO DAILY #30 tab.er.24h 05/31/18 06/07/18 Rx traZODone HCL [Desyrel] 100 mg PO HS #100 tab 05/31/18 06/07/18 Rx Allergies Allergy/AdvReac Type Severity Reaction Status Date / Time haloperidol [From Haldol] Allergy Unknown Verified 06/07/18 00:14 haloperidol lactate Allergy Unknown Verified 06/07/18 00:14 [From Haldol] Phenothiazines Allergy Unknown Verified 06/07/18 00:14 Physical Exam Vitals: Vital Signs Temp Pulse Resp BP Pulse Ox 06/07/18 05:30 98.2 F 66 16 128/79 99 06/07/18 00:11 98.0 F 86 20 122/78 98 Intake and Output 06/06/18 06/06/18 06/07/18 14:59 22:59 06:59 Other: # Voids 0 Weight 107.5 kg Constitutional: Patient is sleeping heavily he would answer to no to my questions please not cooperating with exam. Patient seems to be calmly sleeping Eyes: Unable to examine ENMT: NC/AT, otherwise unable to examine Lungs: Good breath sounds bilaterally no wheezes or rhonchi, patient is not taking deep breaths Normal respiratory effort, no accessory muscle use Cardiovascular: Heart regular in rate and rhythm, No murmurs, gallops, or rubs No peripheral edema Abdominal: Soft Nontender, no guarding, rebound or rigidity Abdomen moving with respiration Normoactive bowel sounds No hepatomegaly, No splenomegaly No palpable mass No abdominal wall hernia noted Skin: Normal temperature, tone, texture, turgor No induration No subcutaneous nodules No rash, lesions No ulcers Extremities: No digital cyanosis No clubbing Pedal pulses intact and symmetrical Radial pulses intact and symmetrical No calf tenderness Neuro patient is not cooperating with neurologic exam at this time Lymphatics: no palpable cervical or supraclavicular , or inguinal lymph nodes Results CBC & Chem 7: 06/07/18 00:50 06/07/18 00:50 Labs: Abnormal Lab Results - Last 24 Hours (Table) 06/07/18 06/07/18 Range/Units 00:50 01:20 RBC 3.96 L (4.30-5.90) m/uL Hgb 11.9 L (13.0-17.5) gm/dL Hct 35.5 L (39.0-53.0) % Urine Cocaine Screen Detected H (NotDetected) Assessment and Plan Assessment: 62-year-old male presented to the hospital due to aggressive behavior, admitted under observation anticipated length of stay of less than 48 hours due to community-acquired pneumonia. Patient is unable to provide any meaningful history at this time history was obtained by reviewing the medical records. The patient presented with a friend due to aggressive behavior, further workup in the ER showed the patient has possible pneumonia. Patient was given Haldol and sedated. Patient was also evaluated by the mental health unit nurse who deemed him stable and does not require admission to the mental health unit at this time Plan: Suspected community-acquired pneumonia Continue with by mouth Levaquin Further history obtained to confirm this diagnosis Chest x-ray is positive Unable to obtain past medical history but from chart review seems that patient has history of heart failure, thyroid disorder This will need further confirmed as the patient is more awake DVT prophylaxis Heparin subcu 3 times a day Possible history of polysubstance abuse Unable to discuss CODE STATUS or any further care planning the patient at this time
[2018-06-07 10:39] VITALS: BMI 26.6
--- NOTE | 2018-06-07 10:51 | P.DS ---
Providers Date of admission: 06/07/18 02:43 Expected date of discharge: 06/07/18 Attending physician: Kisha Andres MD Primary care physician: [facility] Hospital Course: Discharge Diagnosis: Cocaine intoxication Community-acquired pneumonia pneumonia ruled out Compensated congestive heart failure Hypertension Schizophrenia Hospital Course: Patient is a 62-year-old male with a past medical history of heart failure, hypertension, and schizophrenia who presented to the hospital with complaints of aggressive behavior. In the ER he underwent an extensive evaluation. He had been doing cocaine friend. The friend became concerned with his Lan started to so some aggression. Patient indicates that he just wanted to go home and was acting calm and cooperative in the ER. He underwent an extensive evaluation. Vital signs within normal limits and he was afebrile. Laboratory analysis was unremarkable. Head CT showed no acute process. Chest x-ray showed some silhouetting of the left heart border. However patient was not having any unusual cough, cold, fever, flu, shortness of breath, or wheezing. He been given a dose of antibiotics in the ER. This was subsequently discontinued with no objective signs of pneumonia. By the next morning the patient was alert and oriented 3. He denied any suicidal or homicidal ideation. He was up walking and agreeable. He had a clear thought process. He was able to tell me that he follows with [facility] and his next appointment is on June 18. He was determined stable for discharge home. He had been seen by the EPS (psych nurse) in the ER and was determined stable and not needing a mental health evaluation as patient had been taking illicit drugs. Patient will be discharged home in stable condition. [facility] is to [facility]. Patient seen and examined at bedside. No chest pain, shortness of breath, nausea, or vomiting. No recent cough, cold, fever, flu Vital signs reviewed and stable. General: non toxic, no distress, appears at stated age Derm: warm, dry Head: atraumatic, normocephalic, symmetric Eyes: EOMI, no lid lag, anicteric sclera Mouth: no lip lesion, mucus membranes moist Cardiovascular: S1S2 reg, no murmur, positive posterior tibial pulse bilateral, Lungs: CTA bilateral, no rhonchi, no rales , no accessory muscle use Abdominal: soft, nontender to palpation, no guarding, no appreciable organomegaly Ext: no gross muscle atrophy, no edema, no contractures Neuro: CN II-XI grossly intact, no focal neuro deficits Psych: Alert, oriented, appropriate affect A total of 20 minutes of time were spent preparing this complex discharge summary . Pertinent Studies: Head CT-no acute process Chest [id number] new left lower lobe infiltrate Patient Condition at Discharge: Stable Plan - Discharge Summary New Discharge Prescriptions: Continue Carvedilol [Coreg] 3.125 mg PO BID-W/MEALS #60 tab Multivit-Min/FA/Lycopen/Lutein [Centrum Silver Men Tablet] 1 tab PO DAILY Hydrochlorothiazide 12.5 mg PO DAILY [place] Carbonate ER [Lithobid] 450 mg PO BID #60 tablet.er Nicotine 21Mg/24Hr Patch [Habitrol] 1 patch TRANSDERM DAILY #10 patch ARIPiprazole [Abilify] 10 mg PO DAILY #7 tab buPROPion XL [Wellbutrin XL] 150 mg PO DAILY #30 tab.er.24h ARIPiprazole IM [Abilify Maintena] 400 mg IM Q30D Discontinued traZODone HCL [Desyrel] 100 mg PO HS #100 tab Discharge Medication List Carvedilol [Coreg] 3.125 mg PO BID-W/MEALS #60 tab 09/15/16 [Rx] Hydrochlorothiazide 12.5 mg PO DAILY 05/22/18 [History] Multivit-Min/FA/Lycopen/Lutein [Centrum Silver Men Tablet] 1 tab PO DAILY [History] ARIPiprazole [Abilify] 10 mg PO DAILY #7 tab 05/31/18 [Rx] [place] Carbonate ER [Lithobid] 450 mg PO BID #60 tablet.er 05/31/18 [Rx] Nicotine 21Mg/24Hr Patch [Habitrol] 1 patch TRANSDERM DAILY #10 patch 05/31/18 [ Rx] buPROPion XL [Wellbutrin XL] 150 mg PO DAILY #30 tab.er.24h 05/31/18 [Rx] ARIPiprazole IM [Abilify Maintena] 400 mg IM Q30D 06/07/18 [History] Follow up Appointment(s)/Referral(s): [facility] [Primary Care Provider] - 1-2 days Activity/Diet/Wound Care/Special Instructions: Resume medications as you were taking prior to admission Activity as tolerated Discharge Disposition: HOME SELF-CARE
== END 2018-06-07 10:59 | disposition home or self-care (01) ==
LOC: EEVIPCON → EC → 4MS4W 02:43 → EEVIPCON 02:43
PROVIDERS: ADMIT Internal Medicine; ATTEND Internal Medicine
DX: F14.129 Cocaine abuse with intoxication, unspecified (principal); I50.9 Heart failure, unspecified; I11.0 Hypertensive heart disease with heart failure; F20.9 Schizophrenia, unspecified; F31.9 Bipolar disorder, unspecified; E07.9 Disorder of thyroid, unspecified; F41.9 Anxiety disorder, unspecified; F17.200 Nicotine dependence, unspecified, uncomplicated; Z79.899 Other long term (current) drug therapy; Z88.8 Allergy status to other drugs, medicaments and biological substances
CPT/HCPCS: 99285; 96365 ×2; 96372 ×4; 96366; 36415; 93005; 80053; 85025; 80306; 80320; 71045; 70450; G0378; J2060; J1200; J1630; J0456

== ENCOUNTER 2018-06-08 16:59 | Emergency (ER) | payer MEDICARE, OTHER ==
[2018-06-08 17:06] VITALS: BP 113/61; PULSE 82; RESP 16; TEMP 97.8
--- NOTE | 2018-06-08 17:28 | ED ---
Psych HPI - General Chief Complaint: Psychiatric Symptoms Stated Complaint: Psych Evaluation Time Seen by Provider: 06/08/18 17:05 Source: patient Mode of arrival: EMS - History of Present Illness Initial Comments: 62-year-old male patient presents to the emergency department today for complaints of inability to control his temper. Patient states that he got a shot of Abilify 2 weeks ago and since then has been having difficulty controlling his emotions. He states that he feels like he wants to "hurt someone" when they don't do what he wants him to do. He says he does not really want to "kill them, but wants to maim them". Patient states that he believes the Abilify is interacting with one of his other medications and causing these symptoms. He denies any suicidal ideation. States he is all about "self preservation". He denies any alcohol use. Denies any hallucinations. States he does use street drugs. Patient denies any recent rash, fever, chills , shortness breath, chest pain, abdominal pain, nausea, vomiting, diarrhea, constipation, back pain, numbness, tingling, dizziness, weakness, hematuria, dysuria, urinary urgency, urinary frequency, headache, visual changes, or any other complaints. - Related Data Home Medications Medication Instructions Recorded Confirmed Hydrochlorothiazide 12.5 mg PO DAILY 05/22/18 06/08/18 Multivit-Min/FA/Lycopen/Lutein 1 tab PO DAILY 05/22/18 06/08/18 [Centrum Silver Men Tablet] ARIPiprazole IM [Abilify Maintena] 400 mg IM Q30D 06/07/18 06/08/18 Previous Rx's Medication Instructions Recorded Carvedilol [Coreg] 3.125 mg PO BID-W/MEALS #60 tab 09/15/16 ARIPiprazole [Abilify] 10 mg PO DAILY #7 tab 05/31/18 [place] Carbonate ER [Lithobid] 450 mg PO BID #60 tablet.er 05/31/18 Nicotine 21Mg/24Hr Patch [Habitrol] 1 patch TRANSDERM DAILY #10 patch 05/31/18 buPROPion XL [Wellbutrin XL] 150 mg PO DAILY #30 tab.er.24h 05/31/18 Allergies Allergy/AdvReac Type Severity Reaction Status Date / Time haloperidol [From Haldol] Allergy Unknown Verified 06/08/18 17:07 haloperidol lactate Allergy Unknown Verified 06/08/18 17:07 [From Haldol] Phenothiazines Allergy Unknown Verified 06/08/18 17:07 Review of Systems ROS Statement: Those systems with pertinent positive or pertinent negative responses have been documented in the HPI. ROS Other: All systems not noted in ROS Statement are negative. Past Medical History Past Medical History: Unable to Obtain, Heart Failure, Hypertension, Thyroid Disorder Additional Past Medical History / Comment(s): INFORMATION OBTAINED FROM PREVIOUS CHARTS. History of Any Multi-Drug Resistant Organisms: None Reported Past Surgical History: Unable to Obtain, Orthopedic Surgery Additional Past Surgical History / Comment(s): INFORMATION OBTAINED FROM PREVIOUS CHARTING Past Anesthesia/Blood Transfusion Reactions: Unable to Obtain Past Psychological History: Anxiety, Depression, Schizophrenia Smoking Status: Unknown if ever smoked Past Alcohol Use History: Occasional Past Drug Use History: None Reported General Exam Limitations: no limitations General appearance: alert, in no apparent distress, other (This is a well- developed, well-nourished adult male patient in no acute distress. Vital signs upon presentation are temperature 97.8F, pulse 82, respirations 16, blood pressure 113/61, pulse ox 97% on room air.) Eye exam: Present: normal appearance, PERRL, EOMI. Absent: scleral icterus, conjunctival injection, periorbital swelling ENT exam: Present: normal exam, normal oropharynx, mucous membranes moist Respiratory exam: Present: normal lung sounds bilaterally. Absent: respiratory distress, wheezes, rales, rhonchi, stridor Cardiovascular Exam: Present: regular rate, normal rhythm, normal heart sounds. Absent: systolic murmur, diastolic murmur, rubs, gallop, clicks Neurological exam: Present: alert, oriented X3, CN II-XII intact Psychiatric exam: Present: normal affect, normal mood Skin exam: Present: warm, dry, intact, normal color. Absent: rash Course Vital Signs 06/08/18 17:04 Temperature 97.8 F Pulse Rate 82 Respiratory 16 Rate Blood Pressure 113/61 O2 Sat by Pulse 97 Oximetry Medical Decision Making - Medical Decision Making 62-year-old male patient presented to the emergency department today for evaluation of increased anger issues. He denied any suicidal or homicidal ideation however believes that his medications were interacting with each other. He was requesting a medication adjustment. She was given at be evaluated by emergency psychiatric services however he decided he would rather leave. I did advise against him leaving and requests that he remain for evaluation. He refused. He did contract for safety. He did sign AGAINST MEDICAL ADVICE form. He is instructed follow up with [facility] for recheck as soon as possible. Return parameters discussed in detail. He verbalizes understanding. - Lab Data Lab Results 06/08/18 Range/Units 17:48 Urine Opiates Screen Not Detected (NotDetected) Ur Oxycodone Screen Not Detected (NotDetected) Urine Methadone Screen Not Detected (NotDetected) Ur Propoxyphene Screen Not Detected (NotDetected) Ur Barbiturates Screen Not Detected (NotDetected) U Tricyclic Antidepress Not Detected (NotDetected) Ur Phencyclidine Scrn Not Detected (NotDetected) Ur Amphetamines Screen Not Detected (NotDetected) U Methamphetamines Scrn Not Detected (NotDetected) U Benzodiazepines Scrn Not Detected (NotDetected) Urine Cocaine Screen Detected H (NotDetected) U Marijuana (THC) Screen Not Detected (NotDetected) Disposition Clinical Impression: Mood swings Disposition: Left Against Medical Advice Condition: Undetermined Is patient prescribed a controlled substance at d/c from ED?: No Referrals: Portia Santana MD [Primary Care Provider] - 1-2 days Time of Disposition: 20:07
[2018-06-08 18:24] LABS: Amphetamine Screen,Urine Not Detected (NotDetected); Barbiturate Screen,Urine Not Detected (NotDetected); Benzodiazepines Screen,Urine Not Detected (NotDetected); Cocaine Screen,Urine Detected (NotDetected); Methadone Screen, Urine Not Detected (NotDetected); Opiate Screen,Urine Not Detected (NotDetected); Oxycodone Screen, Urine Not Detected (NotDetected); Phencyclidine Screen,Urine Not Detected (NotDetected); Tricyclic Antidepressant,Urine Not Detected (NotDetected); Urn Cannabinoid Scrn Not Detected (NotDetected)
== END 2018-06-08 18:36 | disposition left against medical advice (07) ==
LOC: EC 16:59
DX: F39 Unspecified mood [affective] disorder (principal); I11.0 Hypertensive heart disease with heart failure; I50.9 Heart failure, unspecified; F32.9 Major depressive disorder, single episode, unspecified; F20.9 Schizophrenia, unspecified; Z53.29 Procedure and treatment not carried out because of patient's decision for other reasons; Z79.899 Other long term (current) drug therapy; Z88.8 Allergy status to other drugs, medicaments and biological substances
CPT/HCPCS: 80306; 82075; 99283

== ENCOUNTER 2018-10-04 12:16 | Inpatient (IN) | payer MEDICARE, MEDICAID ==
--- NOTE | 2018-10-04 13:17 | ED ---
General Adult HPI <AriasHuang - Last Filed: 10/04/18 15:23> - General Source: patient, RN notes reviewed Mode of arrival: ambulatory Limitations: no limitations <Sky Campbell - Last Filed: 10/04/18 19:34> - General Chief complaint: Psychiatric Symptoms Stated complaint: EPS eval Time Seen by Provider: 10/04/18 12:30 - History of Present Illness Initial comments: Patient 63-year-old male presented to the emergency room today with a chief complaint of needing psychiatric evaluation. Patient was seen at [facility] prior to arrival here and was recommended to be admitted for psychiatric evaluation. Patient states he is had thoughts of hurting himself. Describes one to jump into a river. He denies any homicidal thoughts or plans. He denies any other complaints currently. Patient denies any recent fever, chills, shortness of breath, chest pain, back pain, abdominal pain, nausea or vomiting, headaches or visual changes, or any other complaints. (Sky Campbell) - Related Data Home Medications Medication Instructions Recorded Confirmed Hydrochlorothiazide 12.5 mg PO DAILY 05/22/18 10/04/18 ARIPiprazole IM [Abilify Maintena] 400 mg IM QMONTH 10/04/18 10/04/18 ARIPiprazole [Abilify] 30 mg PO DAILY 10/04/18 10/04/18 Ergocalciferol [Vitamin D2] 50,000 unit PO Q7D 10/04/18 10/04/[address] Carbonate ER [Lithobid] 450 mg PO QAM 10/04/18 10/04/[address] Carbonate [[address] 900 mg PO HS 10/04/18 10/04/18 Carbonate ER] Loratadine [Claritin] 10 mg PO DAILY 10/04/18 10/04/18 Previous Rx's Medication Instructions Recorded Carvedilol [Coreg] 3.125 mg PO BID-W/MEALS #60 tab 09/15/16 buPROPion XL [Wellbutrin XL] 150 mg PO DAILY #30 tab.er.24h 05/31/18 Allergies Allergy/AdvReac Type Severity Reaction Status Date / Time haloperidol [From Haldol] Allergy Unknown Verified 10/04/18 12:32 haloperidol lactate Allergy Unknown Verified 10/04/18 12:32 [From Haldol] Phenothiazines Allergy Unknown Verified 10/04/18 12:32 Review of Systems ROS Other: All systems not noted in ROS Statement are negative. <Huang Arias - Last Filed: 10/04/18 15:23> ROS Other: All systems not noted in ROS Statement are negative. <Sky Campbell - Last Filed: 10/04/18 19:34> ROS Statement: Those systems with pertinent positive or pertinent negative responses have been documented in the HPI. Past Medical History Past Medical History: Unable to Obtain, Heart Failure, Hypertension, Thyroid Disorder Additional Past Medical History / Comment(s): INFORMATION OBTAINED FROM PREVIOUS CHARTS. History of Any Multi-Drug Resistant Organisms: None Reported Past Surgical History: Unable to Obtain, Orthopedic Surgery Additional Past Surgical History / Comment(s): INFORMATION OBTAINED FROM PREVIOUS CHARTING Past Anesthesia/Blood Transfusion Reactions: Unable to Obtain Past Psychological History: Anxiety, Depression, Schizophrenia Smoking Status: Unknown if ever smoked Past Alcohol Use History: Occasional Past Drug Use History: None Reported <Sky Campbell - Last Filed: 10/04/18 19:34> General Exam <Huang Arias - Last Filed: 10/04/18 15:23> Limitations: no limitations <Sky Campbell - Last Filed: 10/04/18 19:34> - General Exam Comments Initial Comments: General: The patient is awake and alert, in no distress, and does not appear acutely ill. Eye: There is normal conjunctiva bilaterally. Ears, nose, mouth and throat: There are moist mucous membranes and no oral lesions. Neck: The neck is supple, there is no tenderness or JVD. Cardiovascular: There is a regular rate and rhythm. No murmur, rub or gallop is appreciated. Respiratory: Lungs are clear to auscultation, respirations are non-labored, breath sounds are equal. No wheezes, stridor, rales, or rhonchi. Musculoskeletal: Normal ROM, no tenderness. Neurological: A&O x 3. CN II-XII intact, There are no obvious motor or sensory deficits. Coordination appears grossly intact. Speech is normal. Skin: Skin is warm and dry and no rashes or lesions are noted. Psychiatric: Cooperative (Sky Campbell) Vital Signs 10/04/18 10/04/18 12:24 15:20 Temperature 98.2 F Pulse Rate 78 74 Respiratory 18 16 Rate Blood Pressure 132/74 105/63 O2 Sat by Pulse 98 99 Oximetry Medical Decision Making <Huang Arias - Last Filed: 10/04/18 15:23> <Sky Campbell - Last Filed: 10/04/18 19:34> - Medical Decision Making I filled out a clinical certification of this patient. I, Arie Arias, personally saw and examined the patient. I have reviewed and agree with the PA findings, including all diagnostic interpretations and treatment plans as written unless otherwise stated. I was present for the de la cruz portions of any procedures performed and the inclusive time noted for any critical care statement. (Huang Arias) Disposition Time of Disposition: 15:24 <Huang Arias - Last Filed: 10/04/18 15:23> Is patient prescribed a controlled substance at d/c from ED?: No <Sky Campbell - Last Filed: 10/04/18 19:34> Clinical Impression: Psychosis Disposition: ADMITTED IP TO THIS HOSP Condition: Stable
[2018-10-04] MEDS ORDERED: MAGNESIUM HYDROXIDE 2,400 MG/10 ML CUP PO PRN (15:37)
[2018-10-04] MEDS ORDERED: MAG HYDROX/AL HYDROX/SIMETH 30 ML CUP PO PRN (15:37)
[2018-10-04] MEDS: NICOTINE 14MG/24HR PATCH TRANSDERM SCH (16:30)
[2018-10-04] MEDS: LORazepam 1 MG TAB PO PRN (17:12)
[2018-10-04] MEDS: CARVEDILOL 3.125 MG TAB PO SCH (18:45)
[2018-10-04] MEDS: LITHIUM CARBONATE ER 450 MG TABLET.ER PO SCH (21:53)
[2018-10-04] MEDS: ZIPRASIDONE 20 MG VIAL IM PRN (23:21)
[2018-10-05] MEDS: NICOTINE 14MG/24HR PATCH TRANSDERM SCH (05:18)
[2018-10-05] MEDS: LORazepam 1 MG TAB PO PRN ×3 (06:09→19:40)
[2018-10-05] MEDS: LITHIUM CARBONATE ER 450 MG TABLET.ER PO SCH ×2 (08:27→19:40)
[2018-10-05] MEDS: ARIPiprazole 15 MG TAB PO SCH (08:27)
[2018-10-05] MEDS: CARVEDILOL 3.125 MG TAB PO SCH ×2 (08:27→17:07)
[2018-10-05] MEDS: HYDROCHLOROTHIAZIDE 25 MG TAB PO SCH (08:28)
[2018-10-05] MEDS: buPROPion XL 150 MG TAB.ER.24H PO SCH (08:28)
[2018-10-05] MEDS: LORATADINE 10 MG TAB PO SCH (08:28)
[2018-10-05 09:51] LABS: Basophils # (A) 0.1 k/uL (0-0.2); Basophils % (A) 1 %; Eosinophils # (A) 0.3 k/uL (0-0.7); Eosinophils % (A) 3 %; HCT 38.3 % (39.0-53.0); HGB 12.1 gm/dL (13.0-17.5); Lymphocytes # (A) 1.7 k/uL (1.0-4.8); Lymphocytes % (A) 19 %; MCH 29.3 pg (25.0-35.0); MCHC 31.7 g/dL (31.0-37.0); MCV 92.7 fL (80.0-100.0); Mean Platelet Volume 6.7; Monocytes # (A) 0.4 k/uL (0-1.0); Monocytes % (A) 4 %; Neutrophils # (A) 6.7 k/uL (1.3-7.7); Neutrophils % (A) 73 %; Platelet Count 418 k/uL (150-450); RBC 4.13 m/uL (4.30-5.90); RDW 13.9 % (11.5-15.5); WBC 9.2 k/uL (3.8-10.6)
[2018-10-05 09:57] LABS: ALT 21 U/L (21-72); AST 22 U/L (17-59); Albumin 3.9 g/dL (3.5-5.0); Alkaline Phosphatase 79 U/L (38-126); Anion Gap 10 mmol/L; Bilirubin, Delta 0.2 mg/dL (0.0-0.2); Blood Urea Nitrogen 20 mg/dL (9-20); Calcium 9.3 mg/dL (8.4-10.2); Carbon Dioxide 28 mmol/L (22-30); Chloride 102 mmol/L (98-107); Cholesterol 134 mg/dL (<200); Glucose 130 mg/dL (74-99); HDL Cholesterol 44 mg/dL (40-60); LDL Cholesterol,Calculated 62 mg/dL (0-99); Lithium 0.4 mmol/L; Potassium 4.7 mmol/L (3.5-5.1); Sodium 140 mmol/L (137-145); Total Bilirubin 0.2 mg/dL (0.2-1.3); Total Protein 6.8 g/dL (6.3-8.2); Triglycerides 140 mg/dL (<150)
[2018-10-05] MEDS ORDERED: LORazepam 2 MG/ML INJ IM PRN (10:54)
--- NOTE | 2018-10-05 11:52 | HP ---
HISTORY AND PHYSICAL DATE OF SERVICE/DICTATION: 10/05/2018 IDENTIFYING DATA: This patient is a 63-year-old male who was admitted to the mental health unit for agitated behavior and symptoms of psychosis. HISTORY OF PRESENT ILLNESS: The patient was admitted on a petition stating, "Marquis came into [facility] and displayed with severe disorganized thoughts. He was unable to complete logical thoughts and presented with erratic behaviors. Marquis took a UDS and then placed his ID in the urine sample. He also attempted to purchase a soda with his Medicaid card. Marquis appeared to have trouble comprehending his environment and told the doctor it was 2020." The patient is seen today. He presents with acute disorganization of thought. He makes several random statements that indicate a delusional thought process as well. He describes grandiose thoughts. It appears he has been noncompliant with medication. He was previously on an Abilify Maintena injection, which he has not received since June. Apparently there was a treatment order in place issued by the court, and that in July and it was not extended. The patient is known to use cocaine, and it is suspected he presented yesterday under the influence of cocaine intoxication. The patient verbalized not wanting to be on medication, but so far he has been complying with oral medication. He did receive an injection last evening for agitated behavior. PAST PSYCHIATRIC HISTORY: The patient has had numerous psychiatric admissions. He has been on this mental health unit within the last year and several times prior to that. He is most recently prescribed Abilify, Wellbutrin XL, lithium. His lithium level as of yesterday was 0.4. He has been on numerous other psychotropics in the past, including Depakote, trazodone, Seroquel. PAST MEDICAL HISTORY: History of reported hypothyroidism, chronic pain. ALLERGIES: 1. HALDOL. 2. PHENOTHIAZINES. MEDICATIONS: Refer to DEC. CHEMICAL DEPENDENCY HISTORY: Cocaine use disorder, cannabis use disorder. FAMILY PSYCHIATRIC HISTORY: Unknown. FAMILY CHEMICAL DEPENDENCY HISTORY: Unknown. SOCIAL HISTORY: The patient is a 63-year-old male. He has reported having 3 adult children. He resides alone. He has a disability income. LEGAL AND ABUSE HISTORY: Unknown. MENTAL STATUS EXAM: The patient is a tall male appearing older than his stated age. He is edentulous on his lower jaw except for one tooth. He has long hair and a cheng that is unkempt. Hygiene is impaired. He is dressed in his own clothing, which is oversized. Eye contact is appropriate. He is easy to direct. He demonstrates psychomotor slowing. He spontaneously demonstrates a disorganized thought process with grandiose thoughts and some paranoid thinking. He demonstrates no involuntary repetitive movements. He demonstrates no verbal or physical aggressiveness. Affect is labile. Insight and judgment are impaired. STRENGTHS: Housing, income. WEAKNESSES: Noncompliance with medications in the context of an court order for treatment, cocaine use. INTELLECT: Average. IMPRESSIONS: 1. Schizoaffective disorder, bipolar type, cocaine use disorder, cannabis use disorder. 2. Chronic pain, history of hypothyroidism. PLAN: The patient has been admitted to the mental health unit. I will complete a second clinical certificate. The patient does not appreciate the reason for this admission and we are not able to discuss the risks and benefits of treatment. Historically, he becomes noncompliant when not on a court order. We are offering Abilify 30 mg daily, Wellbutrin XL 150 mg daily, lithium carbonate 450 mg in the morning, 900 mg at bedtime. We are using Geodon and Ativan as needed for agitation. He will be seen by Internal Medicine for routine history and physical exam. His BUN and creatinine are within normal limits. His TSH is within normal limits. Social Work will complete a psychosocial assessment and begin discharge planning. KASIA / MERCY: [id number] /
--- NOTE | 2018-10-05 13:18 | P.CONS ---
History of Present Illness - History of Present Illness This is a pleasant 63 years old male with past medical history of heart failure , hypertension, thyroid disorder, anxiety and depression and schizophrenia. He was admitted because of thoughts of hurting himself. Patient denies chest pain. No dyspnea. No change in urine or bowel habits. No fever. He is walking with no problems. Review of Systems CONSTITUTIONAL: No fever, no malaise, no fatigue. HEENT: No recent visual problems or hearing problems. Denied any sore throat. CARDIOVASCULAR: No orthopnea, PND, no palpitations, no syncope. PULMONARY: No shortness of breath, no cough, no hemoptysis. GASTROINTESTINAL: No diarrhea, no nausea, no vomiting, no abdominal pain. Normoactive bowel sounds. NEUROLOGICAL: No headaches, no weakness, no numbness. HEMATOLOGICAL: Denies any bleeding or petechiae. GENITOURINARY: Denies any burning micturition, frequency, or urgency. MUSCULOSKELETAL/RHEUMATOLOGICAL: Denies any joint pain, swelling, or any muscle pain. ENDOCRINE: Denies any polyuria or polydipsia. Past Medical History Past Medical History: Unable to Obtain, Heart Failure, Hypertension, Thyroid Disorder Additional Past Medical History / Comment(s): INFORMATION OBTAINED FROM PREVIOUS CHARTS. History of Any Multi-Drug Resistant Organisms: None Reported Past Surgical History: Unable to Obtain, Orthopedic Surgery Additional Past Surgical History / Comment(s): INFORMATION OBTAINED FROM PREVIOUS CHARTING Past Anesthesia/Blood Transfusion Reactions: Unable to Obtain Past Psychological History: Anxiety, Depression, Schizophrenia Smoking Status: Unknown if ever smoked Past Alcohol Use History: Occasional Past Drug Use History: None Reported Medications and Allergies Home Medications Medication Instructions Recorded Confirmed Type Carvedilol [Coreg] 3.125 mg PO BID-W/MEALS #60 tab 09/15/16 10/04/18 Rx Hydrochlorothiazide 12.5 mg PO DAILY 05/22/18 10/04/18 History buPROPion XL [Wellbutrin XL] 150 mg PO DAILY #30 tab.er.24h 05/31/18 10/04/18 Rx ARIPiprazole IM [Abilify Maintena] 400 mg IM QMONTH 10/04/18 10/04/18 History ARIPiprazole [Abilify] 30 mg PO DAILY 10/04/18 10/04/18 History Ergocalciferol [Vitamin D2] 50,000 unit PO Q7D 10/04/18 10/04/18 History [place] Carbonate ER [Lithobid] 450 mg PO QAM 10/04/18 10/04/18 History [place] Carbonate [[place] 900 mg PO HS 10/04/18 10/04/18 History Carbonate ER] Loratadine [Claritin] 10 mg PO DAILY 10/04/18 10/04/18 History Allergies Allergy/AdvReac Type Severity Reaction Status Date / Time haloperidol [From Haldol] Allergy Unknown Verified 10/04/18 12:32 haloperidol lactate Allergy Unknown Verified 10/04/18 12:32 [From Haldol] Phenothiazines Allergy Unknown Verified 10/04/18 12:32 Physical Exam Vitals: Vital Signs Temp Pulse Pulse Resp BP BP Pulse Ox 10/05/18 06:11 97.9 F 100 18 127/63 10/04/18 18:46 95 132/72 10/04/18 15:58 98.2 F 75 20 95/62 97 10/04/18 15:20 74 16 105/63 99 10/04/18 12:24 98.2 F 78 18 132/74 98 Intake and Output 10/04/18 10/05/18 10/05/18 22:59 06:59 14:59 Other: Weight 93.3 kg GENERAL: The patient is alert and oriented x3, not in any acute distress. Well developed, well nourished. HEENT: Pupils are round and equally reacting to light. EOMI. No scleral icterus. No conjunctival pallor. Normocephalic, atraumatic. No pharyngeal erythema. No thyromegaly. CARDIOVASCULAR: S1 and S2 present. No murmurs, rubs, or gallops. PULMONARY: Chest is clear to auscultation, no wheezing or crackles. ABDOMEN: Soft, nontender, nondistended, normoactive bowel sounds. No palpable organomegaly. MUSCULOSKELETAL: No joint swelling or deformity. EXTREMITIES: No cyanosis, clubbing, or pedal edema. NEUROLOGICAL: Gross neurological examination did not reveal any focal deficits. SKIN: No rashes. Labs and medication were reviewed.. Continue same treatment. Continue with symptomatic treatment. Resume home medication. Monitor lytes and vitals. DVT and GI prophylaxis. Further recommendations of the clinical course of the patient DVT prophylaxis: Subcutaneous heparin GI Prophylaxis: Pepcid PT/OT: Pending Prognosis is guarded Results CBC & Chem 7: 10/05/18 09:22 12 09:22 Labs: Abnormal Lab Results - Last 24 Hours (Table) 10/05/18 10/05/18 Range/Units 09:22 09:22 RBC 4.13 L (4.30-5.90) m/uL Hgb 12.1 L (13.0-17.5) gm/dL Hct 38.3 L (39.0-53.0) % Glucose 130 H (74-99) mg/dL Assessment and Plan Assessment: Psychiatric complaints SCHIZOPHRENIA, depression and anxiety, management as per primary team History of essential hypertension, with controlled blood pressure History of congestive heart failure, chronic with no acute exacerbation History of thyroid problem Plan: This is a pleasant 63 years old male who presents because of psychiatric illnesses, management of these illnesses as per primary team. Patient blood pressure is controlled continue with same management. Labs and medication were reviewed.. Continue same treatment. Continue with symptomatic treatment. Resume home medication. Monitor lytes and vitals. DVT and GI prophylaxis. Further recommendations of the clinical course of the patient Instructed patient to follow-up with PCP within one week after discharge and he agrees Thank you for consulting us, we will see him on an as-needed basis. please feel free to contact us for any concerns or questions
[2018-10-05] MEDS: ACETAMINOPHEN TAB 325 MG TAB PO PRN ×2 (14:04→17:53)
[2018-10-05 14:40] VITALS: BMI 23.1
[2018-10-05 18:13] LABS: Amphetamine Screen,Urine Not Detected (NotDetected); Barbiturate Screen,Urine Not Detected (NotDetected); Benzodiazepines Screen,Urine Detected (NotDetected); Cocaine Screen,Urine Not Detected (NotDetected); Methadone Screen, Urine Not Detected (NotDetected); Opiate Screen,Urine Not Detected (NotDetected); Oxycodone Screen, Urine Not Detected (NotDetected); Phencyclidine Screen,Urine Not Detected (NotDetected); Tricyclic Antidepressant,Urine Not Detected (NotDetected); Urn Cannabinoid Scrn Not Detected (NotDetected)
[2018-10-05 18:18] LABS: Appearance,Urine Clear (Clear); Bilirubin,Urine Negative (Negative); Blood,Urine Trace (Negative); Color,Urine Light Yellow; Glucose,Urine (UA) Negative (Negative); Ketones,Urine Negative (Negative); Leukocyte Esterase,Urine Negative (Negative); Mucus,Urine Rare /hpf; Nitrite,Urine Negative (Negative); Protein,Urine Negative (Negative); RBC,Urine 1 /hpf (0-5); Specific Gravity,Urine 1.004 (1.001-1.035); Urobilinogen,Urine <2.0 mg/dL (<2.0); WBC,Urine 1 /hpf (0-5)
[2018-10-05 19:40] LABS: Hemoglobin A1C 5.8 % (4.0-6.0)
[2018-10-05] MEDS: ZIPRASIDONE 20 MG VIAL IM PRN (22:45)
[2018-10-06] MEDS: LORazepam 1 MG TAB PO PRN ×2 (03:33→20:11)
[2018-10-06] MEDS: CARVEDILOL 3.125 MG TAB PO SCH ×2 (08:31→17:32)
[2018-10-06] MEDS: NICOTINE 14MG/24HR PATCH TRANSDERM SCH (08:31)
[2018-10-06] MEDS: buPROPion XL 150 MG TAB.ER.24H PO SCH (08:31)
[2018-10-06] MEDS: LITHIUM CARBONATE ER 450 MG TABLET.ER PO SCH ×2 (08:31→20:11)
[2018-10-06] MEDS: ARIPiprazole 15 MG TAB PO SCH (08:31)
[2018-10-06] MEDS: LORATADINE 10 MG TAB PO SCH (08:31)
[2018-10-06] MEDS: HYDROCHLOROTHIAZIDE 25 MG TAB PO SCH (08:31)
--- NOTE | 2018-10-06 08:34 | P.PN ---
Progress Note - Text Interval history: The patient is found in the hallway he follows me to an interview room. Staff report that he was agitated in the evening and required when necessary medication. The patient has been complying with oral medications so far. He remains confused. Thought process is very disorganized. He struggles in answering questions directly. Mental status exam: The patient is a tall male he has long ferrari hair he has a cheng hygiene grooming are impaired. There is a odor of urine detectable. He is quite disorganized in terms of thought process demonstrating loose associations and flight of ideas. He has no pressured speech and fact there is some psychomotor slowing. He is dressed in his own clothing but appears quite disheveled he is wearing a sweater with blue jeans and has a pair of underwear pulled fdc up his left leg over his jeans. He is wearing no shoes or socks and throughout the interview picks at his toenails. He demonstrated no verbal or physical aggressiveness he demonstrates no involuntary repetitive movements. Insight and judgment are impaired. He reports no thoughts of wanting to harm himself or others. Plan: The patient will continue on his current medications. We will draw another lithium level BUN/creatinine creatinine. We will monitor him for safety and encourage appropriate participation in the milieu. The patient has been restarted on his prescribed outpatient medications that he had discontinued. We are allowing them time to demonstrate efficacy. Again the patient is known to have delusional thought content at baseline but his overall function at baseline is better than how he currently presents.
[2018-10-06] MEDS: ZIPRASIDONE 20 MG VIAL IM PRN (23:59)
[2018-10-07] MEDS: LORazepam 1 MG TAB PO PRN ×3 (03:49→16:38)
[2018-10-07] MEDS: ACETAMINOPHEN TAB 325 MG TAB PO PRN ×2 (03:49→16:43)
[2018-10-07] MEDS: LORATADINE 10 MG TAB PO SCH (07:56)
[2018-10-07] MEDS: ARIPiprazole 15 MG TAB PO SCH (07:56)
[2018-10-07] MEDS: NICOTINE 14MG/24HR PATCH TRANSDERM SCH (07:56)
[2018-10-07] MEDS: LITHIUM CARBONATE ER 450 MG TABLET.ER PO SCH ×2 (07:56→20:17)
[2018-10-07] MEDS: buPROPion XL 150 MG TAB.ER.24H PO SCH (07:56)
[2018-10-07] MEDS: CARVEDILOL 3.125 MG TAB PO SCH ×2 (07:56→16:39)
[2018-10-07] MEDS: HYDROCHLOROTHIAZIDE 25 MG TAB PO SCH (07:57)
--- NOTE | 2018-10-07 11:11 | P.PN ---
Progress Note - Text Interval history: The patient is found at the assistant front end manager he follows me to an interview room. He indicates his mood is okay. He states he did not sleep very well staff reports he slept 4-5 hours and was restless. Appetite is stable. He has been attending some groups. He is demonstrating no agitated behavior. He's been compliant with his medication. We are drawing the lithium level BUN and creatinine again today. Mental status exam: The patient is a tall male he has long ferrari hair and wears a cheng. He stressors own clothing. Hygiene is improved today as well as grooming. Eye contact is appropriate. He has some psychomotor slowing. He has spontaneous speech that is ongoing until interrupted. Thought process is still quite disorganized demonstrating loose associations and tangential thinking. With questions asked of him he will provide a very brief direct response and then began talking which usually ends an a tangent. He reports no suicidal or homicidal thoughts. He is endorsing no auditory or visual hallucinations. There is likely continued delusional thought content but he denies having any. Insight and judgment impaired. He demonstrates no verbal or physical aggressiveness he demonstrates no involuntary repetitive movements. Plan: The patient will continue on his current psychotropic medications. We will continue monitoring him for safety. Vital signs reviewed. He requires continued psychiatric hospitalization due to the disorganization of his thought which does not appear to be part of his baseline.
[2018-10-07 13:01] LABS: Blood Urea Nitrogen 18 mg/dL (9-20); Lithium 0.8 mmol/L
[2018-10-07] MEDS ORDERED: WATER FOR INJECTION, STERILE 10 ML IV ONE (21:38)
[2018-10-07] MEDS ORDERED: LORazepam 1 MG TAB PO STA (21:45)
[2018-10-08] MEDS ORDERED: chlorproMAZINE 25 MG/ML 2 ML AMP IM STA (03:47)
[2018-10-08] MEDS ORDERED: diphenhydrAMINE 50 MG/ML 1 ML VIAL IM STA (03:48)
[2018-10-08] MEDS: CARVEDILOL 3.125 MG TAB PO SCH ×2 (09:16→18:03)
[2018-10-08] MEDS: HYDROCHLOROTHIAZIDE 25 MG TAB PO SCH (09:16)
[2018-10-08] MEDS: LITHIUM CARBONATE ER 450 MG TABLET.ER PO SCH ×2 (09:16→20:56)
[2018-10-08] MEDS: LORATADINE 10 MG TAB PO SCH (09:16)
[2018-10-08] MEDS: ARIPiprazole 15 MG TAB PO SCH (09:16)
[2018-10-08] MEDS: buPROPion XL 150 MG TAB.ER.24H PO SCH (09:16)
[2018-10-08] MEDS: NICOTINE 14MG/24HR PATCH TRANSDERM SCH (09:18)
[2018-10-08] MEDS: ACETAMINOPHEN TAB 325 MG TAB PO PRN ×2 (09:46→15:11)
[2018-10-08] MEDS: LORazepam 1 MG TAB PO PRN ×3 (09:47→23:08)
--- NOTE | 2018-10-08 11:56 | P.PN ---
Progress Note - Text Interval history: The patient is found in the hallway he follows me to an interview room. Staff report that he was aggressive last evening and he required injectable medication to control his behavior. He remains psychotic she's become more agitated. He demands to be discharged today. He has come out of his room without being fully clothed he is urinating in inappropriate places. He did have difficulty sleeping last evening. I was able to meet with the patient briefly but he required much verbal redirection. Mental status exam: The patient is a tall male he has long ferrari hair long cheng he is dressed in his own clothing he has a disheveled appearance his pants are sagging down. Eye contact is intermittent. Thought process is disorganized. At times he discusses topics and he will smile and then he becomes agitated demanding to leave. He speaks in a mumbling fashion. Insight and judgment are poor. He continues to experience symptoms of psychosis. He demonstrates no involuntary repetitive movements. Plan: The patient remains acutely symptomatic and seems to have regressed over the last 24 hours. In the past he has stabilized on Abilify and lithium. His lithium level is 0.8 BUN/creatinine creatinine are within normal limits. He has received several when necessary medications. We will confer with [facility] to review other medication trials as he has been on numerous psychotropics in the past. Vital signs reviewed.
--- NOTE | 2018-10-08 17:00 | XR ---
PROCEDURE: XR cervical spine limited - AP supine view DATE AND TIME: 10/08/2018 4:47 PM CLINICAL INDICATION: PHH; Pain and FAll TECHNIQUE: One view COMPARISON: None FINDINGS: Prominent multilevel spondylosis changes are noted. No definite fracture or malalignment. T he soft tissues are unremarkable as seen. IMPRESSION: NO DEFINITE ACUTE PROCESS ON THIS SINGLE AP VIEW.
--- NOTE | 2018-10-08 17:01 | XR ---
PROCEDURE: XR shoulder limited RT - 2V DATE AND TIME: 10/08/2018 4:47 PM CLINICAL INDICATION: PHH; pain and fall TECHNIQUE: AP and scapular Y views. COMPARISON: 10/27/2016 FINDINGS: There is no fracture or malalignment. [id number] glenohumeral and moderate acromiocla vicular osteoarthritis changes are appreciated. The soft tissues are unremarkable. IMPRESSION: NO ACUTE PROCESS.
[2018-10-08] MEDS: ZIPRASIDONE 20 MG VIAL IM PRN (23:55)
[2018-10-09] MEDS: NICOTINE 14MG/24HR PATCH TRANSDERM SCH (09:17)
[2018-10-09] MEDS: LITHIUM CARBONATE ER 450 MG TABLET.ER PO SCH ×2 (09:17→21:41)
[2018-10-09] MEDS: buPROPion XL 150 MG TAB.ER.24H PO SCH (09:18)
[2018-10-09] MEDS: CARVEDILOL 3.125 MG TAB PO SCH ×2 (09:18→16:34)
[2018-10-09] MEDS: LORATADINE 10 MG TAB PO SCH (09:18)
[2018-10-09] MEDS: HYDROCHLOROTHIAZIDE 25 MG TAB PO SCH (09:18)
[2018-10-09] MEDS: ARIPiprazole 15 MG TAB PO SCH (09:18)
--- NOTE | 2018-10-09 09:46 | P.PN ---
Progress Note - Text Interval history: The patient is found in the hallway he follows me to the [facility] to speak. He indicates his mood is better. He states that yesterday seemed to be the longest day ever. Staff report that he continues to receive when necessary medication overnight. He continues to demonstrate a disorganized thought process. He continues to demonstrate evidence of disorganized delusional thought. Mental status exam: The patient is a tall male he stressors own clothing. Hygiene grooming impaired. Eye contact is appropriate. He is more pleasant and cooperative during this interaction compared to yesterday. He begins talking about his experience yesterday and feels that he is doing better today. He continues to demonstrate tangential thinking and loose associations and at times flight of ideas. He is endorsing no auditory or visual hallucinations he does appear to continue to have some disorganized delusional thought content. He demonstrates no verbal or physical aggressiveness today. He demonstrates no involuntary repetitive movements. He does still demonstrate psychomotor slowing. He is ambulating without ataxia. He is wearing no socks or shoes at this time. Insight and judgment are impaired. Plan: The patient will continue on the Abilify and lithium. We will discontinue the Wellbutrin in case it is triggering mood instability. We will continue to monitor him for safety and encourage appropriate participation in the milieu. He requires continued psychiatric hospitalization. Vital signs reviewed.
[2018-10-09] MEDS: ACETAMINOPHEN TAB 325 MG TAB PO PRN (16:34)
[2018-10-10] MEDS: ACETAMINOPHEN TAB 325 MG TAB PO PRN ×2 (03:57→14:39)
[2018-10-10] MEDS: LORazepam 1 MG TAB PO PRN ×2 (03:57→14:38)
[2018-10-10] MEDS: NICOTINE 14MG/24HR PATCH TRANSDERM SCH (08:59)
[2018-10-10] MEDS: ARIPiprazole 15 MG TAB PO SCH (08:59)
[2018-10-10] MEDS: HYDROCHLOROTHIAZIDE 25 MG TAB PO SCH (08:59)
[2018-10-10] MEDS: LITHIUM CARBONATE ER 450 MG TABLET.ER PO SCH (09:00)
[2018-10-10] MEDS: LORATADINE 10 MG TAB PO SCH (09:00)
[2018-10-10] MEDS: CARVEDILOL 3.125 MG TAB PO SCH ×2 (09:00→17:26)
--- NOTE | 2018-10-10 09:30 | P.PN ---
Progress Note - Text Interval history: The patient is found in the hallway he follows me to an interview room. He indicates his mood is fine. Staff report no behavioral disturbances overnight. He is eating. He has been directable. His court hearing was scheduled for yesterday but this was adjourned until next Sunday. He has no questions or concerns regarding his psychotropic medication. Mental status exam: The patient is a tall male he is dressed in the same clothing. Eye contact is appropriate. He has ongoing mumbling speech. He demonstrates loose associations and flight of ideas but he is not pressured. He reports no suicidal or homicidal thoughts. He seems to have a continued disorganized delusional thought content. He demonstrates no verbal or physical aggressiveness. Affect was fairly bright during our interaction with no evidence of irritability. He demonstrates no involuntary repetitive movements. Insight and judgment limited. He is endorsing no hallucinations. Plan: The patient will continue on his current psychotropic medication. We will monitor him for safety and encourage his participation in the milieu. Reality orientation is provided when possible. Vital signs reviewed.
[2018-10-11] MEDS: LORazepam 1 MG TAB PO PRN ×2 (02:17→17:46)
[2018-10-11] MEDS: ACETAMINOPHEN TAB 325 MG TAB PO PRN ×2 (02:18→22:40)
[2018-10-11] MEDS: LITHIUM CARBONATE ER 450 MG TABLET.ER PO SCH ×3 (07:46→22:38)
[2018-10-11] MEDS: CARVEDILOL 3.125 MG TAB PO SCH ×2 (07:46→17:11)
[2018-10-11] MEDS: NICOTINE 14MG/24HR PATCH TRANSDERM SCH (07:46)
[2018-10-11] MEDS: ARIPiprazole 15 MG TAB PO SCH (07:46)
[2018-10-11] MEDS: LORATADINE 10 MG TAB PO SCH (07:47)
[2018-10-11] MEDS: HYDROCHLOROTHIAZIDE 25 MG TAB PO SCH (07:47)
--- NOTE | 2018-10-11 10:50 | P.PN ---
Progress Note - Text Interval history: The patient is found in the hallway he follows me to an interview room. He indicates his mood is good he is looking forward to being discharged. Staff report that the patient's behavior has improved during the day but in the evening he is getting more agitated and he is struggling with getting sleep. He has been compliant with psychotropic medications. He's been selectively compliant with groups. Vital signs reviewed. Mental status exam: The patient is alert he ambulates slowly in the hallway but demonstrates no ataxia. He follows me to an interview room and remains calmly seated in his chair. He indicates his mood is good. He is hoping to be discharged. He reports no suicidal or homicidal ideation intent or plan. He is reporting no auditory or visual hallucinations. He continues to demonstrate some disorganization of thought. Thought process is slowly improving however. He is able to use humor appropriately at times. With spontaneous speech he becomes more disorganized. He demonstrates no verbal or physical aggressiveness. However in the evening hours this seems to change. He will describe disorganized delusions at times. Insight and judgment impaired. He demonstrates no involuntary repetitive movements. Plan: The patient will continue on his current psychotropic medications. He is demonstrating slow clinical improvement. We will add trazodone at bedtime to assist with sleep. We will monitor him for safety. He is encouraged to continue participating in the milieu. He requires continued psychiatric hospitalization due to continued disorganization of thought.
[2018-10-11] MEDS: traZODone HCL 50 MG TAB PO SCH (22:39)
[2018-10-12] MEDS: LORazepam 1 MG TAB PO PRN ×2 (00:53→20:15)
[2018-10-12] MEDS: HYDROCHLOROTHIAZIDE 25 MG TAB PO SCH (07:48)
[2018-10-12] MEDS: LITHIUM CARBONATE ER 450 MG TABLET.ER PO SCH ×2 (07:48→20:13)
[2018-10-12] MEDS: ARIPiprazole 15 MG TAB PO SCH (07:48)
[2018-10-12] MEDS: NICOTINE 14MG/24HR PATCH TRANSDERM SCH (07:48)
[2018-10-12] MEDS: LORATADINE 10 MG TAB PO SCH (07:48)
[2018-10-12] MEDS: CARVEDILOL 3.125 MG TAB PO SCH ×2 (07:49→16:33)
--- NOTE | 2018-10-12 11:50 | P.PN ---
Progress Note - Text Progress Note Date: 10/12/18 Interval history: he reports that his mood overall is doing better. He is seen in cross coverage today. He slept well last night. He feels a little bit of carryover from the Desyrel. He still feels like he is having some mood swings but it's less extreme and he is showing improvement. Mental status exam: He is alert and cooperative with the interview. His mood overall is improved. He does not verbalize any thoughts of harm to self or others. He does not verbalize any hallucinations. He does not show any agitation. Thought processes show some disorganization at times. Plan: Patient will be maintained on current psychotropic medication regimen. Continue to monitor for any medication side effects and monitor his ongoing response to treatment. We'll continue to cover this patient through the weekend.
[2018-10-12] MEDS: traZODone HCL 50 MG TAB PO SCH (20:15)
[2018-10-13] MEDS: ACETAMINOPHEN TAB 325 MG TAB PO PRN ×3 (03:20→20:21)
[2018-10-13] MEDS: LORazepam 1 MG TAB PO PRN ×2 (03:24→23:07)
[2018-10-13] MEDS: CARVEDILOL 3.125 MG TAB PO SCH ×2 (08:02→16:33)
[2018-10-13] MEDS: NICOTINE 14MG/24HR PATCH TRANSDERM SCH (08:02)
[2018-10-13] MEDS: LITHIUM CARBONATE ER 450 MG TABLET.ER PO SCH ×2 (08:02→20:19)
[2018-10-13] MEDS: ARIPiprazole 15 MG TAB PO SCH (08:02)
[2018-10-13] MEDS: HYDROCHLOROTHIAZIDE 25 MG TAB PO SCH (08:02)
[2018-10-13] MEDS: LORATADINE 10 MG TAB PO SCH (08:02)
--- NOTE | 2018-10-13 15:35 | P.PN ---
Progress Note - Text Progress Note Date: 10/13/18 Interval history: Patient seen in cross coverage again today. He relates that he sleeping well and eating well. He does not seem to verbalize any adverse psychotropic medication side effects. He makes reference to being involved with the ACT team. Mental status exam: He is alert and cooperative with the interview. Speech is fluent, not rapid or pressured. Thought processes are organized today. He does not verbalize any thoughts of harm to self or others. He does not voice any hallucinations or dali delusions. Plan: Patient will be maintained on current psychotropic medication regimen. We will continue to monitor for any medication side effects and monitor his ongoing response to treatment.
[2018-10-13] MEDS: traZODone HCL 50 MG TAB PO SCH (20:19)
[2018-10-14 04:29] VITALS: BP 106/66; PULSE 80; RESP 14; TEMP 97.5
[2018-10-14] MEDS: LORazepam 1 MG TAB PO PRN (06:21)
[2018-10-14] MEDS: ACETAMINOPHEN TAB 325 MG TAB PO PRN (06:21)
[2018-10-14] MEDS: CARVEDILOL 3.125 MG TAB PO SCH (08:48)
[2018-10-14] MEDS: LITHIUM CARBONATE ER 450 MG TABLET.ER PO SCH (08:51)
[2018-10-14] MEDS: HYDROCHLOROTHIAZIDE 25 MG TAB PO SCH (08:51)
[2018-10-14] MEDS: ARIPiprazole 15 MG TAB PO SCH (08:51)
[2018-10-14] MEDS: LORATADINE 10 MG TAB PO SCH (08:53)
[2018-10-14] MEDS: NICOTINE 14MG/24HR PATCH TRANSDERM SCH (08:53)
[2018-10-14] MEDS ORDERED: ARIPiprazole IM 400 MG VIAL (NO COST) IM ONE (10:57)
--- NOTE | 2018-10-14 11:32 | P.DS ---
Providers Date of admission: 10/04/18 15:27 Expected date of discharge: 10/14/18 Attending physician: Varun Reyes Consults: 10/04/18 15:37 Consult Physician Routine Consulting Provider: Elijah Boyd Consult Reason/Comments: H & P and medical care Do you want consulting provider notified?: Yes Primary care physician: Portia Santana - Discharge Diagnosis(es) (1) Schizoaffective disorder, bipolar type Current Visit: No Status: Acute Priority: High (2) Cocaine use disorder Current Visit: No Status: Acute Priority: Medium (3) Cannabis use disorder, mild, abuse Current Visit: No Status: Acute Priority: Medium Hospital Course: Brief summary admission note: This patient is a 63-year-old male who was admitted to the mental health unit on a petition stating the patient was demonstrating disorganized thoughts and erratic behavior. Upon presentation to the mental health unit he was disorganized he demonstrated paranoid and grandiose thinking and was frequently agitated. For full details please refer to my psychiatric evaluation dated 10/05/2018. Summary of hospital course: The patient was admitted to the mental health unit a second clinical certificate was completed. An initial deferral conference was held and the patient was not willing to defer. Since then and other deferral conference was held and he decided to defer his court hearing. The patient was restarted on his lithium and his Abilify. An early lithium level revealed a result of 0.4 a subsequent one on 10/07/2018 was 0.8. The patient is agreeable to using the Abilify maintena injection he will be given 400 mg IM today. He was seen by internal medicine for routine history and physical exam. Initially the patient was disorganized and agitated but his symptoms progressively improve during the course of the hospitalization. He is now felt to be at his baseline function. He is pleasant cooperative and easily directable. He will be enrolled in act team through [facility]. Mental status exam: The patient is a tall male he has long ferrari hair a long cheng. He is dressed in his own clothing. Hygiene is adequate grooming fair. He is cooperative and easily follows direction. He remains seated in his chair and tolerates the interview. He reports his mood is good. He denies having any suicidal ideation intent or plan. He is reporting no homicidal ideation intent or plan. He reports no auditory or visual hallucinations. He is endorsing no specific delusions although he may still have residual signs of psychosis. He demonstrates no involuntary repetitive movements. He demonstrates no verbal or physical aggressiveness. He is oriented to person place and date. Impressions 1. Schizoaffective disorder bipolar type, cocaine use disorder, cannabis use disorder 2. Chronic pain, hypothyroidism Plan: The patient will be discharged mental health unit today to return to his own residence. He will follow up with [facility] for outpatient care. He is on a deferral agreement. He will participate with act team. He will continue with lithium carbonate 450 mg in the morning 900 mg at bedtime Abilify 30 mg daily for 2 weeks. He was given the Abilify maintena injection 400 mg today. He may continue trazodone 50 mg at bedtime as needed. He is instructed to abstain from any use of alcohol marijuana or any illicit drug as these can precipitate symptoms of psychosis and elevate his safety risk. At this time there is no imminent safety risk he is appropriate for transition to outpatient care. Patient Condition at Discharge: Stable Plan - Discharge Summary Discharge Rx Participant: No New Discharge Prescriptions: New ARIPiprazole IM [Abilify Maintena] 400 mg IM ONCE #1 vial Nicotine 14Mg/24Hr Patch [Habitrol] 1 patch TRANSDERM DAILY #10 patch traZODone HCL [Desyrel] 50 mg PO HS #30 tab Continue Carvedilol [Coreg] 3.125 mg PO BID-W/MEALS #60 tab Hydrochlorothiazide 12.5 mg PO DAILY Ergocalciferol [Vitamin D2 (DRISDOL)] 50,000 unit PO Q7D Loratadine [Claritin] 10 mg PO DAILY ARIPiprazole [Abilify] 30 mg PO DAILY #14 tablet [place] Carbonate [[place] Carbonate ER] 900 mg PO HS #60 tablet.er [place] Carbonate ER [Lithobid] 450 mg PO QAM #30 tablet.er Discontinued buPROPion XL [Wellbutrin XL] 150 mg PO DAILY #30 tab.er.24h ARIPiprazole IM [Abilify Maintena] 400 mg IM QMONTH Discharge Medication List Carvedilol [Coreg] 3.125 mg PO BID-W/MEALS #60 tab 09/15/16 [Rx] Hydrochlorothiazide 12.5 mg PO DAILY 05/22/18 [History] Ergocalciferol [Vitamin D2 (DRISDOL)] 50,000 unit PO Q7D 10/04/18 [History] Loratadine [Claritin] 10 mg PO DAILY 10/04/18 [History] ARIPiprazole IM [Abilify Maintena] 400 mg IM ONCE #1 vial 10/14/18 [Rx] ARIPiprazole [Abilify] 30 mg PO DAILY #14 tablet 10/14/18 [Rx] [place] Carbonate ER [Lithobid] 450 mg PO QAM #30 tablet.er 10/14/18 [Rx] [place] Carbonate [[place] Carbonate ER] 900 mg PO HS #60 tablet.er 10/14/18 [Rx ] Nicotine 14Mg/24Hr Patch [Habitrol] 1 patch TRANSDERM DAILY #10 patch 10/14/18 [ Rx] traZODone HCL [Desyrel] 50 mg PO HS #30 tab 10/14/18 [Rx] Follow up Appointment(s)/Referral(s): Portia Santana MD [Primary Care Provider] - 1-2 days
== END 2018-10-14 15:17 | disposition home or self-care (01) | DRG 885 ==
LOC: EC 12:16 → 3MHU 15:27
PROVIDERS: ADMIT Psychiatry & Neurology Psychiatry; ATTEND Psychiatry & Neurology Psychiatry
DX: F25.0 Schizoaffective disorder, bipolar type (principal); E03.9 Hypothyroidism, unspecified; F12.10 Cannabis abuse, uncomplicated; F14.10 Cocaine abuse, uncomplicated; F41.9 Anxiety disorder, unspecified; G89.29 Other chronic pain; I11.0 Hypertensive heart disease with heart failure; I50.9 Heart failure, unspecified; Z79.899 Other long term (current) drug therapy; T43.96XA Underdosing of unspecified psychotropic drug, initial encounter; Z91.128 Patient's intentional underdosing of medication regimen for other reason; Z91.19 Patient's noncompliance with other medical treatment and regimen; Z60.2 Problems related to living alone
CPT/HCPCS: 72040; 80053; 80061; 80178; 80306; 81001; 82075; 82248; 82565; 83036; 84443; 84520; 85025; 99285

== ENCOUNTER → 2018-10-18 | Outpatient (CLI) | payer MEDICARE, OTHER ==
[2018-10-18 12:13] LABS: Basophils # (A) 0.1 k/uL (0-0.2); Basophils % (A) 1 %; Eosinophils # (A) 0.4 k/uL (0-0.7); Eosinophils % (A) 3 %; HCT 36.4 % (39.0-53.0); HGB 11.3 gm/dL (13.0-17.5); Hypochromasia Slight; Lymphocytes # (A) 1.5 k/uL (1.0-4.8); Lymphocytes % (A) 13 %; MCH 28.7 pg (25.0-35.0); MCV 92.7 fL (80.0-100.0); Mean Platelet Volume 6.5; Monocytes # (A) 0.3 k/uL (0-1.0); Monocytes % (A) 3 %; Neutrophils # (A) 8.9 k/uL (1.3-7.7); Neutrophils % (A) 79 %; Platelet Count 531 k/uL (150-450); RBC 3.93 m/uL (4.30-5.90); RDW 14.5 % (11.5-15.5); WBC 11.4 k/uL (3.8-10.6)
[2018-10-18 16:58] LABS: LDL Cholesterol,Calculated 79.6 mg/dL (0.0-131.0); Lithium 0.6 mmol/L (1.0-1.2); VLDL Calculation 11.4 mg/dL (5.00-40.00)
[2018-10-18 18:02] LABS: Hemoglobin A1C 5.8 % (4.0-6.0)
== END | disposition home or self-care (01) ==
LOC: LABWHC1 11:30
PROVIDERS: ATTEND Physician Assistant
DX: Z51.81 Encounter for therapeutic drug level monitoring (principal); Z79.899 Other long term (current) drug therapy
CPT/HCPCS: 36415; 80061; 80178; 83036; 84439; 84443; 85025

== ENCOUNTER 2018-10-20 20:55 | Emergency (ER) | payer MEDICARE, OTHER ==
[2018-10-20 21:09] VITALS: RESP 20
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
[2018-10-20 23:29] VITALS: BP 110/64; PULSE 82; TEMP 97.9
== END 2018-10-20 23:33 | disposition home or self-care (01) ==
LOC: EC 20:55
DX: F25.0 Schizoaffective disorder, bipolar type (principal); I11.0 Hypertensive heart disease with heart failure; I50.9 Heart failure, unspecified; F17.200 Nicotine dependence, unspecified, uncomplicated; Z88.8 Allergy status to other drugs, medicaments and biological substances; Z79.899 Other long term (current) drug therapy
CPT/HCPCS: 82075; 99285

== ENCOUNTER → 2018-11-11 | Outpatient (CLI) | payer MEDICARE ==
[2018-11-11 12:56] LABS: Basophils % (A) 0 %; Eosinophils # (A) 0.3 k/uL (0-0.7); Eosinophils % (A) 3 %; HCT 35.7 % (39.0-53.0); HGB 11.1 gm/dL (13.0-17.5); Hypochromasia Slight; Lymphocytes # (A) 1.3 k/uL (1.0-4.8); Lymphocytes % (A) 12 %; MCH 28.8 pg (25.0-35.0); Mean Platelet Volume 6.4; Monocytes # (A) 0.4 k/uL (0-1.0); Monocytes % (A) 4 %; Neutrophils # (A) 8.3 k/uL (1.3-7.7); Neutrophils % (A) 80 %; Platelet Count 357 k/uL (150-450); RBC 3.84 m/uL (4.30-5.90); RDW 15.5 % (11.5-15.5); WBC 10.5 k/uL (3.8-10.6)
[2018-11-11 19:51] LABS: LDL Cholesterol,Calculated 57.4 mg/dL (0.0-131.0); Lithium 0.5 mmol/L (1.0-1.2); VLDL Calculation 12.6 mg/dL (5.00-40.00)
[2018-11-11 21:39] LABS: Hemoglobin A1C 5.4 % (4.0-6.0)
== END | disposition home or self-care (01) ==
LOC: LABWHC1 11:47
PROVIDERS: ATTEND Physician Assistant
DX: Z51.81 Encounter for therapeutic drug level monitoring (principal); Z79.899 Other long term (current) drug therapy
CPT/HCPCS: 36415; 80061; 80178; 83036; 85025

== ENCOUNTER 2022-02-27 20:49 | Emergency (ER) | payer MEDICARE, OTHER ==
[2022-02-27 21:04] VITALS: BP 130/79; PULSE 91; RESP 18; TEMP 98.2
--- NOTE | 2022-02-28 00:03 | ED ---
General Adult HPI - General Chief complaint: Skin/Abscess/Foreign Body Stated complaint: Abscess on chin Time Seen by Provider: 02/27/22 23:53 Source: patient, RN notes reviewed Mode of arrival: ambulatory Limitations: no limitations - History of Present Illness Initial comments: Patient is a pleasant 66-year-old male presenting to the emergency department with concern for abscess in his cheng. Patient did open yesterday with his pocket knife. Patient states it is doing much better. No history of other previous symptoms. No other areas involved. No fever. - Related Data Previous Rx's Medication Instructions Recorded Acetaminophen Tab [Tylenol] 650 mg PO Q4HR PRN tab 11/14/21 Cholecalciferol [Vitamin D3 (125 125 mcg PO DAILY 30 Days tab 11/14/21 Mcg = 5000 Iu)] [place] Carbonate [[place] 450 mg PO BID 30 Days tab 11/14/21 Carbonate ER] Loratadine [Claritin] 10 mg PO DAILY 30 Days tab 11/14/21 Nicotine 21Mg/24Hr Patch [Habitrol] 1 patch TRANSDERM DAILY 30 Days 11/14/21 patch carvediloL [Coreg] 3.125 mg PO BID 30 Days tab 11/14/21 fluPHENAZine [Prolixin] 5 mg PO BID 4 Days tab 11/14/21 fluPHENAZine decanoate [Prolixin 37.5 mg IM Q14D #1 ml 11/14/21 Decanoate] Mupirocin 2% Oint [Bactroban 2% 1 applic TOPICAL TID #22 gm 02/28/22 Oint] Sulfamethox-Tmp 800-160Mg [Bactrim 2 each PO Q12HR #40 tab 02/28/22 DS 800-160 mg] Allergies Allergy/AdvReac Type Severity Reaction Status Date / Time haloperidol [From Haldol] Allergy Unknown Verified 11/12/21 16:22 haloperidol lactate Allergy Unknown Verified 11/12/21 16:22 [From Haldol] Phenothiazines Allergy Unknown Verified 11/12/21 16:22 Review of Systems ROS Statement: Those systems with pertinent positive or pertinent negative responses have been documented in the HPI. ROS Other: All systems not noted in ROS Statement are negative. Constitutional: Denies: fever Eyes: Denies: eye pain ENT: Denies: ear pain Respiratory: Denies: cough Cardiovascular: Denies: chest pain Endocrine: Denies: fatigue Gastrointestinal: Denies: abdominal pain Genitourinary: Denies: dysuria Musculoskeletal: Denies: back pain Skin: Reports: as per HPI Past Medical History Past Medical History: Unable to Obtain, Heart Failure, Hypertension, Thyroid Disorder Additional Past Medical History / Comment(s): INFORMATION OBTAINED FROM PREVIOUS CHARTS. History of Any Multi-Drug Resistant Organisms: None Reported Past Surgical History: Unable to Obtain, Orthopedic Surgery Additional Past Surgical History / Comment(s): INFORMATION OBTAINED FROM PREVIOUS CHARTING Past Anesthesia/Blood Transfusion Reactions: Unable to Obtain Past Psychological History: Anxiety, Depression, Schizophrenia Smoking Status: Current every day smoker Past Alcohol Use History: Occasional Past Drug Use History: Cocaine, Heroin, Opiates, Prescription Drug Abuse General Exam Limitations: no limitations General appearance: alert, in no apparent distress Head exam: Present: atraumatic Eye exam: Present: normal appearance Neck exam: Present: normal inspection Respiratory exam: Present: normal lung sounds bilaterally Cardiovascular Exam: Present: regular rate, normal rhythm Neurological exam: Present: alert Psychiatric exam: Present: normal affect, normal mood Skin exam: Present: other (. Has healing abscess on the left side of the cheng.) Course Vital Signs 02/27/22 21:01 Temperature 98.2 F Pulse Rate 91 Respiratory 18 Rate Blood Pressure 130/79 O2 Sat by Pulse 98 Oximetry Disposition Clinical Impression: Abscess Disposition: HOME SELF-CARE Condition: Stable Instructions (If sedation given, give patient instructions): Abscess (ED) Additional Instructions: Prescription for ointment and antibiotic pills has been sent to pharmacy. Please follow-up with primary care physician in the next couple days for recheck . Return for increased swelling, pain, fevers or redness, worsening symptoms or any other concerns. Prescriptions: Sulfamethox-Tmp 800-160Mg [Bactrim DS 800-160 mg] 2 each PO Q12HR #40 tab Mupirocin 2% Oint [Bactroban 2% Oint] 1 applic TOPICAL TID #22 gm Is patient prescribed a controlled substance at d/c from ED?: No Referrals: [facility] [Primary Care Provider] - 1-2 days Time of Disposition: 00:02
== END 2022-02-28 00:13 | disposition home or self-care (01) ==
LOC: EC 20:49
DX: L02.91 Cutaneous abscess, unspecified (principal); I10 Essential (primary) hypertension; F17.200 Nicotine dependence, unspecified, uncomplicated; Z88.8 Allergy status to other drugs, medicaments and biological substances; Z88.5 Allergy status to narcotic agent

== ENCOUNTER 2023-03-16 12:20 | Inpatient (IN) | payer MEDICARE, MEDICAID ==
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
[2023-03-16] MEDS ORDERED: LORazepam 2 MG/ML INJ IM STA (15:33)
[2023-03-16] MEDS ORDERED: ZIPRASIDONE 20 MG VIAL IM STA (15:34)
[2023-03-16] MEDS ORDERED: MAGNESIUM HYDROXIDE 2,400 MG/10 ML CUP PO PRN (16:24)
[2023-03-16] MEDS ORDERED: hydrOXYzine HCL 50 MG/ML 1 ML VIAL IM PRN (16:30)
[2023-03-16] MEDS ORDERED: OLANZapine 10 MG VIAL IM PRN (16:30)
[2023-03-16] MEDS ORDERED: OLANZapine 5 MG TAB PO PRN (16:30)
--- NOTE | 2023-03-17 01:22 | P.PN ---
Progress Note - Text Progress Note Date: 03/16/23 patient heavily sedated, unable to evaluate at this time
[2023-03-17] MEDS: hydrOXYzine pamoate 25 MG CAP PO PRN (04:19)
[2023-03-17] MEDS: ACETAMINOPHEN TAB 325 MG TAB PO PRN (07:54)
[2023-03-17] MEDS: DIVALPROEX ER 500 MG TAB.ER.24H PO SCH ×2 (08:18→21:39)
[2023-03-17] MEDS: carvediloL 3.125 MG TAB PO SCH ×3 (08:18→16:28)
[2023-03-17] MEDS: LITHIUM CARBONATE ER 450 MG TABLET.ER PO SCH ×3 (08:18→21:39)
[2023-03-17] MEDS: hydroCHLOROthiazide 12.5 MG CAP PO SCH (08:40)
[2023-03-17] MEDS: NICOTINE 14MG/24HR PATCH TRANSDERM SCH ×2 (08:40→08:48)
[2023-03-17] MEDS: LORATADINE 10 MG TAB PO SCH (08:40)
[2023-03-17] MEDS: CHOLECALCIFEROL 125 MCG (5000 IU) TABLET PO SCH (08:40)
[2023-03-17 10:31] LABS: Basophils # (A) 0.1 k/uL (0-0.2); Basophils % (A) 1 %; Eosinophils # (A) 0.2 k/uL (0-0.7); Eosinophils % (A) 2 %; HCT 39.8 % (39.0-53.0); HGB 12.9 gm/dL (13.0-17.5); Hypochromasia Slight; Lymphocytes # (A) 1.5 k/uL (1.0-4.8); Lymphocytes % (A) 18 %; MCH 30.9 pg (25.0-35.0); MCHC 32.3 g/dL (31.0-37.0); MCV 95.6 fL (80.0-100.0); Mean Platelet Volume 7.5; Monocytes # (A) 0.5 k/uL (0-1.0); Monocytes % (A) 6 %; Neutrophils % (A) 71 %; Platelet Count 350 k/uL (150-450); RBC 4.16 m/uL (4.30-5.90); RDW 14.4 % (11.5-15.5); WBC 8.4 k/uL (3.8-10.6)
[2023-03-17 10:41] LABS: ALT 14 U/L (4-49); AST 24 U/L (17-59); African American GFR (CKD) >90 (>60 ml/min/1.73 sqM); Albumin 3.9 g/dL (3.5-5.0); Alkaline Phosphatase 80 U/L (38-126); Anion Gap 10 mmol/L; Blood Urea Nitrogen 11 mg/dL (9-20); Calcium 8.9 mg/dL (8.4-10.2); Carbon Dioxide 27 mmol/L (22-30); Chloride 103 mmol/L (98-107); Glucose 86 mg/dL (74-99); Lithium 0.3 mmol/L; Non-African American GFR(CKD) 79 (>60 ml/min/1.73 sqM); Potassium 4.9 mmol/L (3.5-5.1); Sodium 140 mmol/L (137-145); Total Bilirubin 0.5 mg/dL (0.2-1.3)
[2023-03-17 10:47] LABS: Valproic Acid (Depakene) <10.0 ug/mL
[2023-03-17] MEDS ORDERED: LORazepam 1 MG TAB PO STA (15:50)
[2023-03-17] MEDS: MAG HYDROX/AL HYDROX/SIMETH 30 ML CUP PO PRN (16:28)
--- NOTE | 2023-03-17 18:22 | P.HP ---
Psychiatric H&P - . H&P Date: 03/17/23 History & Physical: Allergies Allergy/AdvReac Type Severity Reaction Status Date / Time haloperidol [From Haldol] Allergy Unknown Verified 03/16/23 13:49 haloperidol lactate Allergy Unknown Verified 03/16/23 13:49 [From Haldol] Phenothiazines Allergy Unknown Verified 03/16/23 13:49 Vital Signs Temp 97.9 F 03/17/23 04:45 Pulse 95 03/17/23 08:48 Resp 22 03/17/23 04:45 BP 133/83 03/17/23 08:48 Pulse Ox 93 L 03/17/23 04:45 FiO2 Intake & Output 03/16/23 03/17/23 03/17/23 18:59 06:59 18:59 Weight 122.7 kg Laboratory Last Values Coronavirus (PCR) Not Detected (Not Detectd) 03/16/23 14:46 03/17/23 08:49 IDENTIFYING DATA: Patient is a 67-year-old male with a history of schizoaffective disorder and polysubstance abuse HPI: Patient was brought into the ED by member of ACT team due to manic symptoms, aggression, and paranoid delusions about the mafia and "black gangs" being out to kill him. Per ACT team, patient has been noncompliant with his oral medications and is currently on a court order that expires on 06/04/2023. While in the ED, patient was becoming agitated when asked to provide urine for drug screen. EKG showed QTc of 408 and NSR. Patient was hospitalized most recently at this hospital from 11/23/2022 until 12/04/2022. At the time, he was discharged on Depakote ER 500 mg at bedtime, Abilify Maintena 400 mg every month, melatonin 6 mg at bedtime, and lithium ER 450 mg twice a day, which has maintained outpatient per [facility] records. Patient has a history of schizoaffective disorder and polysubstance abuse. Patient currently follows up at [facility] with his nurse practitioner Ingris. Patient was seen wandering the hallways, loud and bizarre and agreeable to speak with contract technical writer this morning. He endorses poor compliance with oral medications in the past week stating that he had been compliant with them prior to this period. He says that he had been having no sleep in the past 40 hours. Patient also states that "I suspected for a long time that I am Stan Leija ". On occasion, he also rambles on about his mental illness dealing with that for "47 years" and that he is almost a psychiatrist. He laughs loudly subsequent to stating this. Patient reports good energy and good appetite. Patient denies any suicidal or homicidal ideation intent or plan. At this time patient denies any auditory or visual hallucinations. PAST PSYCHIATRIC HISTORY: Patient states that he has a history of schizoaffective disorder and polysubstance abuse. Patient was previously on latuda, Depakote and lithium in the past. Patient is at several psychiatric hospitalizations. Patient was hospitalized most recently at this hospital from 11/23/2022 until 12/04/2022. At the time, he was discharged on Depakote ER 500 mg at bedtime, Abilify Maintena 400 mg every month, melatonin 6 mg at bedtime, and lithium ER 450 mg twice a day, which has maintained outpatient per [facility] records. Patient currently follows up with Ingris nurse practitioner at [facility]. patient denies any history of suicide attempts in the past. He is on a court order that expires on 06/04/2023. PMH:Heart Failure, Hypertension, Thyroid Disorder ALLERGIES: as per EMR CHEMICAL DEPENDENCY HISTORY: Alcohol: denies Cannabis: denies Tobacco: Makes his own pipe tobacco (12 daily) Cocaine: Methamphetamine: Every other day "couple puffs" FAMILY PSYCHIATRIC/SUBSTANCE USE HISTORY: unable to obtain SOCIAL HISTORY: He reports being born in [place]. He says one of his brother is in [place]. Patient currently lives with his brother. Has 1 other brother in [place]. He has 3 sisters. MENTAL STATUS EXAM: General Appearance: Patient appears to be tall, disheveled, long hair. Older than stated age is alert, cooperative. long hair, unkempt. Patient appears to have poor hygiene and grooming. Behavior: Patient is aggressive at times and relaxed at other times. disorganized. Speech: Patient's speech is loud and disorganized Mood/Affect: Patient reports their mood is "fine", affect is labile Suicidality/Homicidality: Patient denies having any homicidal ideation intent or plan. Denies any suicidal ideations intent or plan Perceptions: Patient denies any visual hallucinations and denies any auditory hallucinations Though content/process: disorganized, delusional loosely formed. bizarre. Memory and concentration: fair to assessment Judgment and insight: poor/impulsive STRENGTHS/WEAKNESSES: strength is that patient is resilient. Weakness is that patient has poor judgment and is impulsive INTELLECT: average IMPRESSIONS: Schizoaffective disorder, bipolar type nicotine dependence history of polysubstance abuse PLAN: -Patient is admitted under involuntary status to [facility] for stabilization of psychiatric symptoms and safety. Currently on a court order expiring 06/04/2023. -Medications : Restart Lithobid 450 mg twice a day for mood stabilization. depakote 500 mg qhs for mood stabilization/aggression. Abilify Maintena 400 mg every month next due 02/24/23 - NRT -Vistaril and Zyprexa PRN for agitation/aggression -Internal Medicine consult to perform medical evaluation and physical. -NRT - nicotine patch -SW on board for discharge planning. Encourage patient to participate in groups to work on coping skills. 03/17/23 09:19 03/17/23 10:18 03/17/23 18:11
--- NOTE | 2023-03-18 00:30 | P.CONS ---
History of Present Illness - Reason for Consult Consult date: 03/17/23 - History of Present Illness The patient is a 57-year-old male with a PMH of schizoaffective disorder, polysubstance abuse including methamphetamine, hypertension, tobacco abuse, and heart failure. In the emergency department for bizarre behavior. The patient was admitted to the mental health unit where he was seen and evaluated. The patient reports that over the past 3-4 years, he has noticed that gradually worsening right-sided inguinal hernia with scrotal enlargement. He reports having seen a surgeon several years ago who advised the patient to quit tobacco for 30 days and then follow-up. Patient states that he does not wish to quit smoking under any circumstance and thereby did not follow-up with the surgeon. The patient states that he has been gradually cutting down however and is currently smoking 5 cigars a day. The patient has been managing the gradually enlarging hernia by wearing tight briefs. He reports mild discomfort at the hernia but states that it is always reducible. He denied any additional complaints. Denied experiencing chest discomfort or shortness of breath, fever, chills, cough, nausea, vomiting, abdominal pain, diarrhea. Review of systems: Pertinent positives and negatives as discussed in HPI, a complete review of systems was performed and all other systems are negative. Physical examination: General: non toxic, no distress, appears at stated age, overweight Derm: no unusual rashes/lesions, no unusual ecchymoses, warm, dry Head: atraumatic, normocephalic, symmetric Eyes: EOMI, no lid lag, anicteric sclera ENT: Nose and ears atraumatic, no thrush, no pharyngeal erythema Neck: trachea midline, supple Mouth: no lip lesion, mucus membranes moist Cardiovascular: S1S2 reg, no murmur, no edema Lungs: CTA bilateral, no rhonchi, no rales , no accessory muscle use Abdominal: soft, nontender to palpation, no guarding : R severely enlarged scrotum without tenderness, largely reducible Ext: no gross muscle atrophy, no contractures, Neuro: No gross focal neuro deficits noted Psych: Alert, oriented, appropriate affect Assessment: Right sided inguinal hernia Polysubstance abuse Tobacco abuse Psychosis Imaging: None performed Data Review: Laboratory evaluation reviewed with WBC count 8.4, hemoglobin 12.9, sodium 140, potassium 4.9, BUN 11, creatinine 0.99, TSH 1.35 Plan: Consult general surgery Strongly advised on importance of cessation from substance and tobacco use Defer management of psychosis to primary psychiatry service Thank you for allowing us to participate in the care of this patient. We will follow peripherally. Do not hesitate to contact us with questions. Someone can be reached from the [facility] hospitalist group at all hours of the day at [phone]. Past Medical History Past Medical History: Unable to Obtain, Heart Failure, Hypertension, Thyroid Dis order Additional Past Medical History / Comment(s): INFORMATION OBTAINED FROM PREVIOUS CHARTS. History of Any Multi-Drug Resistant Organisms: None Reported Past Surgical History: Unable to Obtain, Orthopedic Surgery Additional Past Surgical History / Comment(s): INFORMATION OBTAINED FROM PREVIOUS CHARTING Past Anesthesia/Blood Transfusion Reactions: Unable to Obtain Past Psychological History: Anxiety, Depression, Schizophrenia Smoking Status: Unknown if ever smoked Past Alcohol Use History: Occasional Additional Past Alcohol Use History / Comment(s): Patient is a smoker of one to 2 packs of cigarettes per day and started when he was 6 years of age. He does have history of crack, cocaine and heroin use in the past. Past Drug Use History: Cocaine, Heroin, Opiates, Prescription Drug Abuse Additional Drug Use History / Comment(s): Per old charts, has hx drug use. Pt currently pleasant but unwilling to discuss history. - Past Family History Father Additional Family Medical History / Comment(s): The patient refused to answer questions Medications and Allergies Home Medications Medication Instructions Recorded Confirmed Type Loratadine [Claritin] 10 mg PO DAILY 30 Days tab 06/23/22 03/16/23 Rx ARIPiprazole IM [Abilify Maintena] 400 mg IM QMONTHLY #1 each 12/04/22 03/16/23 Rx Cholecalciferol [Vitamin D3 (125 125 mcg PO DAILY 30 Days #30 tab 12/04/22 03/16/23 Rx Mcg = 5000 Iu)] [place] Carbonate [[place] 450 mg PO BID 30 Days #60 tab 12/04/22 03/16/23 Rx Carbonate ER] hydroCHLOROthiazide [Hydrodiuril] 12.5 mg PO DAILY 30 Days #30 cap 12/04/22 03/16/23 Rx Divalproex ER [Depakote ER] 500 mg PO HS 03/16/23 03/16/23 History carvediloL [Coreg] 3.125 mg PO BID 03/16/23 03/16/23 History Allergies Allergy/AdvReac Type Severity Reaction Status Date / Time haloperidol [From Haldol] Allergy Unknown Verified 03/16/23 13:49 haloperidol lactate Allergy Unknown Verified 03/16/23 13:49 [From Haldol] Phenothiazines Allergy Unknown Verified 03/16/23 13:49 Physical Exam Vitals: Vital Signs Temp Pulse Resp BP Pulse Ox 03/17/23 08:48 95 133/83 03/17/23 04:45 97.9 F 87 22 151/77 93 L Results CBC & Chem 7: 03/17/23 09:56 03/17/23 09:56 Labs: Abnormal Lab Results - Last 24 Hours (Table) 03/17/23 Range/Units 09:56 RBC 4.16 L (4.30-5.90) m/uL Hgb 12.9 L (13.0-17.5) gm/dL
[2023-03-18 00:43] LABS: Appearance,Urine Clear (Clear); Bilirubin,Urine Negative (Negative); Blood,Urine Small (Negative); Color,Urine Yellow; Glucose,Urine (UA) Negative (Negative); Ketones,Urine Negative (Negative); Leukocyte Esterase,Urine Negative (Negative); Mucus,Urine Rare /hpf; Nitrite,Urine Negative (Negative); Protein,Urine Negative (Negative); RBC,Urine 4 /hpf (0-5); Specific Gravity,Urine 1.012 (1.001-1.035); Squamous Epithelial Cell,Urine <1 /hpf (0-4)
[2023-03-18] MEDS: ACETAMINOPHEN TAB 325 MG TAB PO PRN (05:39)
[2023-03-18] MEDS: NICOTINE 14MG/24HR PATCH TRANSDERM SCH (08:58)
[2023-03-18] MEDS: CHOLECALCIFEROL 125 MCG (5000 IU) TABLET PO SCH (08:59)
[2023-03-18] MEDS: carvediloL 3.125 MG TAB PO SCH ×2 (08:59→16:09)
[2023-03-18] MEDS: LITHIUM CARBONATE ER 450 MG TABLET.ER PO SCH ×2 (08:59→20:54)
[2023-03-18] MEDS: LORATADINE 10 MG TAB PO SCH (08:59)
[2023-03-18] MEDS: hydroCHLOROthiazide 12.5 MG CAP PO SCH (08:59)
--- NOTE | 2023-03-18 11:02 | P.GSCN ---
History of Present Illness Consult date: 03/18/23 Reason for Consult: Right inguinal hernia History of present illness: 67-year-old male admitted to the psychiatric unit for psychoses. Patient apparently is noncompliant with his medications at times. While here the patient was noted to have a large hernia on the right-hand side. Patient says he has had that for 3 years. No pain. He says given time he is able to reduce this fully. No nausea or vomiting. Tolerating diet. Review of Systems The patient denies any acute changes in vision or hearing, no dysphagia or odynophagia, no chest pain or shortness of breath, no dysuria or hematuria, no headache, no runny nose, no rectal bleeding or melena, no unexplained weight loss Past Medical History Past Medical History: Unable to Obtain, Heart Failure, Hypertension, Thyroid Disorder Additional Past Medical History / Comment(s): INFORMATION OBTAINED FROM PREVIOUS CHARTS. History of Any Multi-Drug Resistant Organisms: None Reported Past Surgical History: Unable to Obtain, Orthopedic Surgery Additional Past Surgical History / Comment(s): INFORMATION OBTAINED FROM PREVIOUS CHARTING Past Anesthesia/Blood Transfusion Reactions: Unable to Obtain Past Psychological History: Anxiety, Depression, Schizophrenia Smoking Status: Unknown if ever smoked Past Alcohol Use History: Occasional Additional Past Alcohol Use History / Comment(s): Patient is a smoker of one to 2 packs of cigarettes per day and started when he was 6 years of age. He does have history of crack, cocaine and heroin use in the past. Past Drug Use History: Cocaine, Heroin, Opiates, Prescription Drug Abuse Additional Drug Use History / Comment(s): Per old charts, has hx drug use. Pt currently pleasant but unwilling to discuss history. - Past Family History Father Additional Family Medical History / Comment(s): The patient refused to answer questions Medications and Allergies Home Medications Medication Instructions Recorded Confirmed Type Loratadine [Claritin] 10 mg PO DAILY 30 Days tab 06/23/22 03/16/23 Rx ARIPiprazole IM [Abilify Maintena] 400 mg IM QMONTHLY #1 each 12/04/22 03/16/23 Rx Cholecalciferol [Vitamin D3 (125 125 mcg PO DAILY 30 Days #30 tab 12/04/22 03/16/23 Rx Mcg = 5000 Iu)] [place] Carbonate [[place] 450 mg PO BID 30 Days #60 tab 12/04/22 03/16/23 Rx Carbonate ER] hydroCHLOROthiazide [Hydrodiuril] 12.5 mg PO DAILY 30 Days #30 cap 12/04/22 03/16/23 Rx Divalproex ER [Depakote ER] 500 mg PO HS 03/16/23 03/16/23 History carvediloL [Coreg] 3.125 mg PO BID 03/16/23 03/16/23 History Allergies Allergy/AdvReac Type Severity Reaction Status Date / Time haloperidol [From Haldol] Allergy Unknown Verified 03/16/23 13:49 haloperidol lactate Allergy Unknown Verified 03/16/23 13:49 [From Haldol] Phenothiazines Allergy Unknown Verified 03/16/23 13:49 Surgical - Exam Vital Signs Temp Pulse Resp BP Pulse Ox 98.0 F 90 18 136/85 94 L 03/16/23 12:26 03/16/23 12:26 03/16/23 12:26 03/16/23 12:26 03/16/23 12:26 Physical exam: General: Well-developed, well-nourished HEENT: Normocephalic, sclerae nonicteric Abdomen: Nontender, nondistended, large right scrotal hernia incarcerated Extremities: No edema Neuro: Alert and oriented Results - Labs 03/17/23 09:56 03/17/23 09:56 Abnormal Lab Results - Last 24 Hours (Table) 03/18/23 Range/Units 00:12 Urine Blood Small H (Negative) Urine Mucus Rare H (None) /hpf Diabetes panel 03/17/23 Range/Units 09:56 Hemoglobin A1c 5.3 (0.0-6.0) % Thyroid panel 03/17/23 Range/Units 09:56 TSH 1.350 (0.465-4.680) mIU/L Pituitary panel 03/17/23 Range/Units 09:56 TSH 1.350 (0.465-4.680) mIU/L Assessment and Plan (1) Incarcerated inguinal hernia Narrative/Plan: 67-year-old male with incarcerated right inguinal hernia. Will require open repair at some point. This is non-urgent. He can follow-up in the office after discharge. We'll sign off. Please call if needed. Current Visit: Yes Status: Acute Code(s): K40.30 - UNIL INGUINAL HERNIA, W OBST, W/O GANGR, NOT SPCF RECUR SNOMED Code(s): 180356355
[2023-03-18 14:11] LABS: Urine Alcohol Negative (Negative); Urine Barbiturate Negative (Negative); Urine Cocaine Negative (Negative); Urine Methadone Negative (Negative); Urine Opiates Negative (Negative); Urine Phencyclidine Negative (Negative)
--- NOTE | 2023-03-18 14:58 | P.PN ---
Progress Note - Text Progress Note Date: 03/18/23 Interval History: Patient was seen wandering the hallways and was directable and agreeable to reilly reyes with verse writer. Patient continues to be pacing the halls and loud at times. He continues to have bizarre behaviors and makes grandiose statements. He states that his mood is "good ". He describes his "47 years of being in hospitals, critical access hospital hospitals". He states that he has been doing well. Patient has had not had any behavioral issues overnight. He states that he slept well. He also has been eating well and denies concerns with this. Surgery was consulted for hernia and patient was seen by them. Patient continues to poor insight into his noncompliance that led to recent hospitalization. At this time patient denies any suicidal or homicidal ideation, intent or plan. Patient denies any auditory and visual hallucinations. Patient denies any side effects from the medications and has been compliant with meds. Mental Status Exam: General Appearance: Patient appears to be tall, disheveled, long hair, pleasant. Older than stated age is alert, cooperative. long hair, unkempt. Patient appears to have poor hygiene and grooming. Behavior: Patient is agitated at times and relaxed at other times. disorganized. Speech: Patient's speech is loud and disorganized Mood/Affect: Patient reports their mood is "good", affect is elevated Suicidality/Homicidality: Patient denies having any homicidal ideation intent or plan. Denies any suicidal ideations intent or plan Perceptions: Patient denies any visual hallucinations and denies any auditory hallucinations Though content/process: disorganized, delusional loosely formed. bizarre. Memory and concentration: fair to assessment Judgment and insight: poor/impulsive Assessment Schizoaffective disorder, bipolar type nicotine dependence history of polysubstance abuse Plan: -Patient is admitted under involuntary status to [facility]HU for stabilization of psychiatric symptoms and safety. Currently on a court order expiring 06/04/2023. -Medications : Continue Lithobid 450 mg BID for mood stabilization. Of note, patient is on hydrochlorothiazide which decreases lithium clearance. Therefore, patient will be allowed to stabilize on this while maintaining compliance on the unit. continue depakote 500 mg qhs for mood stabilization/aggression. Abilify Maintena 400 mg every month next due 02/24/23 - NRT -Vistaril and Zyprexa PRN for agitation/aggression -Internal Medicine consult to perform medical evaluation and physical. -NRT - nicotine patch -SW on board for discharge planning. Encourage patient to participate in groups to work on coping skills. Patient will need to follow-up outpatient with surgery for incarcerated right inguinal hernia.
[2023-03-18] MEDS: MAG HYDROX/AL HYDROX/SIMETH 30 ML CUP PO PRN (17:07)
[2023-03-18] MEDS: DIVALPROEX ER 500 MG TAB.ER.24H PO SCH (20:54)
[2023-03-19] MEDS: ACETAMINOPHEN TAB 325 MG TAB PO PRN (01:42)
[2023-03-19] MEDS: NICOTINE 14MG/24HR PATCH TRANSDERM SCH (05:51)
[2023-03-19] MEDS: LITHIUM CARBONATE ER 450 MG TABLET.ER PO SCH ×2 (10:13→20:44)
[2023-03-19] MEDS: LORATADINE 10 MG TAB PO SCH (10:13)
[2023-03-19] MEDS: CHOLECALCIFEROL 125 MCG (5000 IU) TABLET PO SCH (10:14)
[2023-03-19] MEDS: hydroCHLOROthiazide 12.5 MG CAP PO SCH (10:14)
[2023-03-19] MEDS: carvediloL 3.125 MG TAB PO SCH ×2 (10:14→16:39)
--- NOTE | 2023-03-19 13:09 | P.PN ---
Progress Note - Text Progress Note Date: 03/19/23 Clinical Problems: Schizoaffective disorder bipolar type, tobacco use disorder, incarcerated inguinal hernia, hypertension Interim history: I reviewed the medical record, interviewed the patient and discussed the treatment and treatment plan with the treatment team. Lan complained that he was brought to the hospital involuntarily under a court order. He doesn't believe that he is [facility] was honest with him about the situation. He acknowledged that he did not take Depakote regularly but insisted that he received his injections of Abilify. During the interview he expressed unusual beliefs fragmented delusional beliefs he talked about red lack and white gangs. He interjected comments or phrases from television shows. Overall he was very talkative and gregarious. He has participated in therapeutic groups and activities. The therapist noted that his thinking is concrete, disorganized and at times he is intrusive and restless. He usually remains in the groups from a 15-29 minutes. He slept 5 hours last night. He has been compliant with prescribed medications Mental status exam: He presented as a casually groomed elderly male with long TOMPKINS hair. He made eye contact and attended to the interview. His dentition was poor. His gait was slow but steady. He had no abnormal involuntary movements. His speech was spontaneous with increased rate and rhythm. His affect was labile but mostly elevated. He did not express suicidal ideation or depressive cognitions. His thinking was digressive and tangential. He expressed overvalued ideas or delusional beliefs as described above. Assessment: Overall he is much less belligerent, angry and disorganized on admission. He continues to meet criteria for inpatient hospitalization for symptom stabilization and safety. Plan: Continue Depakote ER 500 mg at bedtime, lithium carbonate 400 mg twice a day, Habitrol for smoking cessation, Zyprexa when necessary for agitation or aggression, Vistaril for anxiety, encouraged continued participation in therapeutic groups and activities. Coreg for hypertension. Evaluate clinical status response to treatment daily basis.
[2023-03-19 16:40] VITALS: PULSE 91
[2023-03-19] MEDS: DIVALPROEX ER 500 MG TAB.ER.24H PO SCH (20:44)
[2023-03-20] MEDS: hydrOXYzine pamoate 25 MG CAP PO PRN (00:17)
[2023-03-20] MEDS: NICOTINE 14MG/24HR PATCH TRANSDERM SCH (05:22)
[2023-03-20 07:05] VITALS: BP 129/89; RESP 18; TEMP 97.2
[2023-03-20] MEDS: CHOLECALCIFEROL 125 MCG (5000 IU) TABLET PO SCH (09:05)
[2023-03-20] MEDS: carvediloL 3.125 MG TAB PO SCH (09:05)
[2023-03-20] MEDS: hydroCHLOROthiazide 12.5 MG CAP PO SCH (09:05)
[2023-03-20] MEDS: LORATADINE 10 MG TAB PO SCH (09:05)
[2023-03-20] MEDS: LITHIUM CARBONATE ER 450 MG TABLET.ER PO SCH (09:05)
--- NOTE | 2023-03-20 13:03 | P.DS ---
Providers Date of admission: 03/16/23 16:20 Expected date of discharge: 03/20/23 Attending physician: Jean Sigala MD Consults: 03/16/23 16:24 Consult Physician Routine Consulting Provider: Fina Physician Consult Reason/Comments: H&P Do you want consulting provider notified?: Yes Primary care physician: [facility] - Discharge Diagnosis(es) (1) Schizoaffective disorder, bipolar type Status: Acute Priority: High (2) Nicotine dependence Status: Chronic Priority: Low Hospital Course: Admission HPI: Initial psychiatric evaluation was completed by Dr. Trejo on 03/17/2023 who wrote: IDENTIFYING DATA: Patient is a 67-year-old male with a history of schizoaffective disorder and polysubstance abuse HPI: Patient was brought into the ED by member of ACT team due to manic symptoms, aggression, and paranoid delusions about the mafia and "black gangs" being out to kill him. Per ACT team, patient has been noncompliant with his oral medications and is currently on a court order that expires on 06/04/2023. While in the ED, patient was becoming agitated when asked to provide urine for drug screen. EKG showed QTc of 408 and NSR. Patient was hospitalized most recently at this hospital from 11/23/2022 until 12/04/2022. At the time, he was discharged on Depakote ER 500 mg at bedtime, Abilify Maintena 400 mg every month, melatonin 6 mg at bedtime, and lithium ER 450 mg twice a day, which has maintained outpatient per [facility] records. Patient has a history of schizoaffective disorder and polysubstance abuse. Patient currently follows up at [facility] with his nurse practitioner Ingris. Patient was seen wandering the hallways, loud and bizarre and agreeable to speak with promotion writer this morning. He endorses poor compliance with oral medications in the past week stating that he had been compliant with them prior to this period. He says that he had been having no sleep in the past 40 hours. Patient also states that "I suspected for a long time that I am Stan Heladio ". On occasion, he also rambles on about his mental illness dealing with that for "47 years" and that he is almost a psychiatrist. He laughs loudly subsequent to stating this. Patient reports good energy and good appetite. Patient denies any suicidal or homicidal ideation intent or plan. At this time patient denies any auditory or visual hallucinations. PAST PSYCHIATRIC HISTORY: Patient states that he has a history of schizoaffective disorder and polysubstance abuse. Patient was previously on latuda, Depakote and lithium in the past. Patient is at several psychiatric hospitalizations. Patient was hospitalized most recently at this hospital from 11/23/2022 until 12/04/2022. At the time, he was discharged on Depakote ER 500 mg at bedtime, Abilify Maintena 400 mg every month, melatonin 6 mg at bedtime, and lithium ER 450 mg twice a day, which has maintained outpatient per [facility] records. Patient currently follows up with Ingris nurse practitioner at [facility]. patient denies any history of suicide attempts in the past. He is on a court order that expires on 06/04/2023. Hospital course: Upon admission to the unit patient was initially presenting as disheveled, loud, and disorganized. Patient was however directable and agreeable to commence treatment. Patient was initially disruptive however as he continues to take his medications, he became much more linear and logical in conversation. He became much more polite. Patient was started on his home medications of lithium and Depakote. Patient spoke of his stressors and engaged in therapy both group and individual. Patient was also seen by medical team for history and physical exam. Over the course the hospital's edition, the patient despite significant improvement in regards to his target symptoms of ninfa and psychosis. The patient had significant improvement in regards to his sleep. He became more linear and logical in conversation and much more polite and friendly. On the d ay of discharge, the patient is not reporting any suicidal or homicidal ideation, intention, and/or plan. He is not reporting any auditory or visual hallucinations. He is not reporting any paranoia or other delusions. He has been adherent with his medications and is not endorsing any significant side effects. He reports no access to firearms or other weapons. He is looking for to discharge and living with his brother. The patient does have a significant history of substance abuse and was counseled at great length and abstaining from all substances including tobacco, alcohol, marijuana, and all illicit drugs. He was counseled at length and the importance of medication adherence and appropriate outpatient follow-up. He was also counseled at length and avoiding excessive caffeine intake. Prior to his discharge, the patient is not reporting any medical issues or concerns. He denies any chest pain, shortness of breath, palpitations, or any other medical issues or concerns. He reports no involuntary muscle movements or akathisia. As the patient no longer met criteria for continued inpatient psychiatric consultation, he was subsequently discharged. Family meeting was arranged by social work msw to answer any questions and ensure safety upon discharge. Mental status exam: General Appearance: Patient appears to be stated age is alert, pleasant, and cooperative. Patient is in no acute distress and has fair hygiene and grooming Behavior: Patient is calmly seated without any agitated behavior. Speech: Patient's speech is fluent and nonpressured. Interruptible. More etodora ear and logical. Mood/Affect: Patient reports their mood is "feeling good.", affect is congruent and Bright and friendly. Suicidality/Homicidality: Patient reports no suicidal or homicidal ideation. Perceptions: Patient denies any auditory or visual hallucinations. Though content/process: There is no evidence of any delusional thought content and thought process is linear and goal-directed. more future oriented Memory and concentration: AOX3, grossly intact for the purposes of this session. Can spell "WORLD" backwards correctly. Judgment and insight: Improved with guarded prognosis Impression: Schizoaffective disorder, bipolar type Nicotine dependence Plan: -Continue with discharge today as patient has improved and stabilized psychiatrically and is not currently an imminent threat to himself and/or others. Patient will remain at chronically elevated risk due to his severity and chronicity of his mental illness. -Continue medications: [place] carbonate ER 450 mg C0 twice a day for mood stabilization Depakote ER 500 mg daily at bedtime for mood stabilization Abilify maintena 400 mg IM due on 03/26/2023. -Patient was counseled on the need for medication compliance and appropriate follow-up at mental health and also primary care for medical issues. Patient verbalized understanding and agreed. -Social work to arrange for and conduct family meeting to ensure safety upon discharge and answer any questions/concerns. Social work also to arrange for patients follow up appointments with [facility] for psychiatric care along with follow up with primary care provider. -Patient counseled on abstaining from recreational drugs and marijuana and alcohol. Was informed/educated on the adverse effects on their physical and mental health. Patient verbally agreed and understood. -Patient was instructed to return to the hospital or seek immediate medical care if their psychiatric or medical symptoms do worsen or reoccur. -Psychoeducation and supportive therapy provided to patient. Risks and benefits of pharmacological treatment versus the risks and benefits of nontreatment weighed and discussed. Informed consent discussion held. Common side effects of psychotropics discussed such as, but not limited to headache, GI disturbance, sexual dysfunction, movement disorders, sedation, and orthostatic hypotension. Life threatening and blackbox warnings of prescribed medications also discussed. Potential risks of operating a vehicle or heavy machinery discussed with patient at length. Advised on importance of compliance and a reliable and responsible manner. Patient advised to review FDA consumer labeling of all medications prior to taking. Patient verbalized understanding of potential risks, and agrees with current treatment plan. Patient advised to medically contact physician/emergency personnel if any acute changes in condition occur. Vital Signs Temp 97.2 F L 03/20/23 07:04 Pulse 91 03/20/23 07:04 Resp 18 03/20/23 07:04 BP 129/89 03/20/23 07:04 Pulse Ox 98 03/19/23 05:52 FiO2 Laboratory Results WBC 8.4 k/uL (3.8-10.6) 03/17/23 09:56 RBC 4.16 m/uL (4.30-5.90) L 03/17/23 09:56 Hgb 12.9 gm/dL (13.0-17.5) L 03/17/23 09:56 Hct 39.8 % (39.0-53.0) 03/17/23 09:56 MCV 95.6 fL (80.0-100.0) 03/17/23 09:56 MCH 30.9 pg (25.0-35.0) 03/17/23 09:56 MCHC 32.3 g/dL (31.0-37.0) 03/17/23 09:56 RDW 14.4 % (11.5-15.5) 03/17/23 09:56 Plt Count 350 k/uL (150-450) 03/17/23 09:56 MPV 7.5 03/17/23 09:56 Neutrophils % 71 % 03/17/23 09:56 Lymphocytes % 18 % 03/17/23 09:56 Monocytes % 6 % 03/17/23 09:56 Eosinophils % 2 % 03/17/23 09:56 Basophils % 1 % 03/17/23 09:56 Neutrophils # 6.0 k/uL (1.3-7.7) 03/17/23 09:56 Lymphocytes # 1.5 k/uL (1.0-4.8) 03/17/23 09:56 Monocytes # 0.5 k/uL (0-1.0) 03/17/23 09:56 Eosinophils # 0.2 k/uL (0-0.7) 03/17/23 09:56 Basophils # 0.1 k/uL (0-0.2) 03/17/23 09:56 Hypochromasia Slight 03/17/23 09:56 Sodium 140 mmol/L (137-145) 03/17/23 09:56 Potassium 4.9 mmol/L (3.5-5.1) 03/17/23 09:56 Chloride 103 mmol/L (98-107) 03/17/23 09:56 Carbon Dioxide 27 mmol/L (22-30) 03/17/23 09:56 Anion Gap 10 mmol/L 03/17/23 09:56 BUN 11 mg/dL (9-20) 03/17/23 09:56 Creatinine 0.99 mg/dL (0.66-1.25) 03/17/23 09:56 Est GFR (CKD-EPI)AfAm >90 (>60 ml/min/1.73 sqM) 03/17/23 09:56 Est GFR (CKD-EPI)NonAf 79 (>60 ml/min/1.73 sqM) 03/17/23 09:56 Glucose 86 mg/dL (74-99) 03/17/23 09:[address] Glu mg/dL 105 03/17/23 09:56 Hemoglobin A1c 5.3 % (0.0-6.0) 03/17/23 09:56 Calcium 8.9 mg/dL (8.4-10.2) 03/17/23 09:56 Total Bilirubin 0.5 mg/dL (0.2-1.3) 03/17/23 09:56 AST 24 U/L (17-59) 03/17/23 09:56 ALT 14 U/L (4-49) 03/17/23 09:56 Alkaline Phosphatase 80 U/L (38-126) 03/17/23 09:56 Total Protein 7.0 g/dL (6.3-8.2) 03/17/23 09:56 Albumin 3.9 g/dL (3.5-5.0) 03/17/23 09:56 TSH 1.350 mIU/L (0.465-4.680) 03/17/23 09:56 Urine Color Yellow 03/18/23 00:12 Urine Appearance Clear (Clear) 03/18/23 00:12 Urine pH 7.0 (5.0-8.0) 03/18/23 00:12 Ur Specific [place] 1.012 (1.001-1.035) 03/18/23 00:12 Urine Protein Negative (Negative) 03/18/23 00:12 Urine Glucose (UA) Negative (Negative) 03/18/23 00:12 Urine Ketones Negative (Negative) 03/18/23 00:12 Urine Blood Small (Negative) H 03/18/23 00:12 Urine Nitrite Negative (Negative) 03/18/23 00:12 Urine Bilirubin Negative (Negative) 03/18/23 00:12 Urine Urobilinogen 2.0 mg/dL (<2.0) 03/18/23 00:12 Ur Leukocyte Esterase Negative (Negative) 03/18/23 00:12 Urine RBC 4 /hpf (0-5) 03/18/23 00:12 Ur Squamous Epith Cells <1 /hpf (0-4) 03/18/23 00:12 Urine Mucus Rare /hpf (None) H 03/18/23 00:12 Urine Opiates Screen Negative (Negative) 03/18/23 00:12 Urine Methadone Screen Negative (Negative) 03/18/23 00:12 Ur Propoxyphene Screen Negative (Negative) 03/18/23 00:12 Urine Barbiturates Negative (Negative) 03/18/23 00:12 Valproic Acid <10.0 ug/mL 03/17/23 09:56 Ur Phencyclidine Scrn Negative (Negative) 03/18/23 00:12 Ur Amphetamine Screen Positive (Negative) A 03/18/23 00:12 U Benzodiazepines Scrn Negative (Negative) 03/18/23 00:12 [place]dale 0.3 mmol/L 03/17/23 09:56 Urine Cocaine Screen Negative (Negative) 03/18/23 00:12 U Cannabinoids Screen Negative (Negative) 03/18/23 00:12 Urine Alcohol Negative (Negative) 03/18/23 00:12 Coronavirus (PCR) Not Detected (Not Detectd) 03/16/23 14:46 Allergies Allergy/AdvReac Type Severity Reaction Status Date / Time haloperidol [From Haldol] Allergy Unknown Verified 03/16/23 13:49 haloperidol lactate Allergy Unknown Verified 03/16/23 13:49 [From Haldol] Phenothiazines Allergy Unknown Verified 03/16/23 13:49 Patient Condition at Discharge: Stable Plan - Discharge Summary Discharge Rx Participant: No New Discharge Prescriptions: New [place] Carbonate ER [Lithobid] 450 mg PO BID 30 Days #60 tab Divalproex ER [Depakote ER] 500 mg PO HS 30 Days #30 tab Continue carvediloL [Coreg] 3.125 mg PO BID Loratadine [Claritin] 10 mg PO DAILY 30 Days tab hydroCHLOROthiazide [Hydrodiuril] 12.5 mg PO DAILY 30 Days #30 cap Cholecalciferol [Vitamin D3 (125 Mcg = 5000 Iu)] 125 mcg PO DAILY 30 Days #30 tab ARIPiprazole IM [Abilify Maintena] 400 mg IM QMONTHLY #1 each Discontinued [place] Carbonate [[place] Carbonate ER] 450 mg PO BID 30 Days #60 tab Divalproex ER [Depakote ER] 500 mg PO HS Discharge Medication List Loratadine [Claritin] 10 mg PO DAILY 30 Days tab 06/23/22 [Rx] Cholecalciferol [Vitamin D3 (125 Mcg = 5000 Iu)] 125 mcg PO DAILY 30 Days #30 tab 12/04/22 [Rx] hydroCHLOROthiazide [Hydrodiuril] 12.5 mg PO DAILY 30 Days #30 cap 12/04/22 [Rx] carvediloL [Coreg] 3.125 mg PO BID 03/16/23 [History] ARIPiprazole IM [Abilify Maintena] 400 mg IM QMONTHLY #1 each 03/20/23 [Rx] Divalproex ER [Depakote ER] 500 mg PO HS 30 Days #30 tab 03/20/23 [Rx] [place] Carbonate ER [Lithobid] 450 mg PO BID 30 Days #60 tab 03/20/23 [Rx] Follow up Appointment(s)/Referral(s): [facility] [Outside] - 03/20/23 3:00 pm (ACT team) [facility] Clements [facility] [Medical Doctor[facility] - 1-2 days Patient Instructions/Handouts: How to Stop Smoking (DC), Schizoaffective Disorder (DC), Psychotic Disorder (DC) Activity/Diet/Wound Care/Special Instructions: Avoid the use of street drugs and alcohol. Take all medications as prescribed. When you are in need of refills on your medications, please contact your medical provider and/or outpatient psychiatrist to have this done. Please go to scheduled outpatient appointments for aftercare treatment. If symptoms return or become worse, call the crisis line at and/or go to the nearest emergency room for evaluation. Discharge Disposition: HOME SELF-CARE
[2023-03-26] MEDS ORDERED: ARIPiprazole IM SYRINGE 400 MG (NO CHARGE) PHARMACY STOCK IM SCH (16:30)
== END 2023-03-20 11:55 | disposition home or self-care (01) | DRG 885 ==
LOC: EC 12:20 → 3MHU 16:20
PROVIDERS: ADMIT Psychiatry & Neurology Psychiatry; ATTEND Psychiatry & Neurology Psychiatry
DX: F25.0 Schizoaffective disorder, bipolar type (principal); K40.30 Unilateral inguinal hernia, with obstruction, without gangrene, not specified as recurrent; F17.290 Nicotine dependence, other tobacco product, uncomplicated; F11.10 Opioid abuse, uncomplicated; F14.10 Cocaine abuse, uncomplicated; I50.9 Heart failure, unspecified; Z79.899 Other long term (current) drug therapy; Z91.148 Patient's other noncompliance with medication regimen for other reason; Z91.199 Patient's noncompliance with other medical treatment and regimen due to unspecified reason; Z20.822 Contact with and (suspected) exposure to COVID-19
CPT/HCPCS: 80053; 80164; 80178; 80306; 81001; 82075; 83036; 84443; 85025; 87635; 93005; 96372; 99285

== ENCOUNTER 2023-10-18 02:37 | Emergency (ER) | payer MEDICARE, OTHER ==
[2023-10-18 03:09] VITALS: BP 137/87; PULSE 82; RESP 18; TEMP 98
--- NOTE | 2023-10-18 03:16 | ED ---
General Adult HPI - General Chief complaint: Extremity Injury, Lower Stated complaint: Knee Pain Time Seen by Provider: 10/18/23 02:57 Source: patient Mode of arrival: ambulatory Limitations: no limitations - History of Present Illness Initial comments: Dictation was produced using [employer] dictation software. please excuse any grammatical, word or spelling errors. Chief Complaint: 68-year-old male with left knee pain History of Present Illness: 68-year-old male states that over the last 2-3 days he's been having symptoms in his left knee. States that he first noticed it when going up the stairs. Denies any trauma. Denies any fever, chills or night sweats. He was sober and ambulatory however he does walk with a slight limp. The ROS documented in this emergency department record has been reviewed and confirmed by me. Those systems with pertinent positive or negative responses have been documented in the HPI. All other systems are other negative and/or noncontributory. - Related Data Home Medications Medication Instructions Recorded Confirmed carvediloL [Coreg] 3.125 mg PO BID 03/16/23 03/16/23 Previous Rx's Medication Instructions Recorded Loratadine [Claritin] 10 mg PO DAILY 30 Days tab 06/23/22 Cholecalciferol [Vitamin D3 (125 125 mcg PO DAILY 30 Days #30 tab 12/04/22 Mcg = 5000 Iu)] hydroCHLOROthiazide [Hydrodiuril] 12.5 mg PO DAILY 30 Days #30 cap 12/04/22 ARIPiprazole IM [Abilify Maintena] 400 mg IM QMONTHLY #1 each 03/20/23 Divalproex ER [Depakote ER] 500 mg PO HS 30 Days #30 tab 03/20/23 [place] Carbonate ER [Lithobid] 450 mg PO BID 30 Days #60 tab 03/20/23 Allergies Allergy/AdvReac Type Severity Reaction Status Date / Time haloperidol [From Haldol] Allergy Unknown Verified 10/18/23 02:53 haloperidol lactate Allergy Unknown Verified 10/18/23 02:53 [From Haldol] Phenothiazines Allergy Unknown Verified 10/18/23 02:53 Review of Systems ROS Statement: Those systems with pertinent positive or pertinent negative responses have been documented in the HPI. ROS Other: All systems not noted in ROS Statement are negative. Past Medical History Past Medical History: Unable to Obtain, Heart Failure, Hypertension, Thyroid Disorder Additional Past Medical History / Comment(s): INFORMATION OBTAINED FROM PREVIOUS CHARTS. History of Any Multi-Drug Resistant Organisms: None Reported Past Surgical History: Unable to Obtain, Orthopedic Surgery Additional Past Surgical History / Comment(s): INFORMATION OBTAINED FROM PREVIOUS CHARTING Past Anesthesia/Blood Transfusion Reactions: Unable to Obtain Past Psychological History: Anxiety, Depression, Schizophrenia Smoking Status: Current every day smoker, Vaper Past Alcohol Use History: Occasional Past Drug Use History: Cocaine, Heroin, Methamphetamine, Opiates, Prescription Drug Abuse - Past Family History Father Additional Family Medical History / Comment(s): The patient refused to answer questions General Exam - General Exam Comments Initial Comments: PHYSICAL EXAM: General Impression: Alert and oriented x3, not in acute distress HEENT: Normocephalic atraumatic, extra-ocular movements intact, pupils equal and reactive to light bilaterally, mucous membranes moist. Cardiovascular: Heart regular rate and rhythm Chest: Able to complete full sentences, no retractions, no tachypnea Motor: no focal deficits noted Neurological: CN II-XII grossly intact, no focal motor or sensory deficits noted Skin: Intact with no visualized rashes Psych: Normal affect and mood Left knee: Passive and active range of motion intact with very minimal antalgia Limitations: no limitations Course Vital Signs 10/18/23 02:51 Temperature 98 F Pulse Rate 82 Respiratory 18 Rate Blood Pressure 137/87 O2 Sat by Pulse 99 Oximetry Medical Decision Making - Medical Decision Making I was notified that patient had eloped from the emergency department approximately 3:35 AM Disposition Clinical Impression: Knee pain Disposition: LEFT AGAINST MEDICAL ADVICE Condition: Stable Referrals: None,Stated [Primary Care Provider] - 1-2 days Time of Disposition: 03:47
== END 2023-10-18 03:44 | disposition left against medical advice (07) ==
LOC: EC 02:37
DX: M25.562 Pain in left knee (principal); I11.0 Hypertensive heart disease with heart failure; I50.9 Heart failure, unspecified; F41.9 Anxiety disorder, unspecified; F32.A Depression, unspecified; F17.200 Nicotine dependence, unspecified, uncomplicated; F10.90 Alcohol use, unspecified, uncomplicated; F15.90 Other stimulant use, unspecified, uncomplicated; Z88.8 Allergy status to other drugs, medicaments and biological substances; Z53.29 Procedure and treatment not carried out because of patient's decision for other reasons
CPT/HCPCS: 99283

== ENCOUNTER → 2024-07-22 | Outpatient (CLI) | payer MEDICARE, OTHER ==
--- NOTE | 2024-07-22 15:33 | CTL ---
EXAMINATION TYPE: CT Low Dose Lung DATE OF EXAM ORDERED: 07/22/2024 HISTORY: . Low Dose CT Lung Screening CT DLP: 103.[address] CTDI: 2.6 mGy IV CONTRAST USED: None. SCREENING VISIT: First visit COMPARISON: None. TECHNIQUE: Low dose computed tomography scan was performed through the chest at 1 millimeter thick se ctions and reconstructed images in the coronal plane at [address] DIAGNOSTIC QUALITY: Satisfactory FINDINGS: LUNG NODULES: Not presentLeft lung: no nodules identified.Right lung: no nodules identified. LUNGS: COPD: Severity: Moderate Fibrosis: Severity: Moderate Lymph nodes: None Other findings: None RIGHT PLEURAL SPACE: Effusion: None Calcification: None Thickening: None Pneumothorax: None LEFT PLEURAL SPACE: Effusion: None Calcification: None Thickening: None Pneumothorax: None HEART: Heart Size: Mildly enlarged Coronary calcification: Mild Pericardial effusion: None OTHER FINDINGS: Upper abdomen: No significant abnormality Bony thorax: Degenerative changes Supraclavicular region: No significant abnormalityOther: No significant abnormalityI IMPRESSION: No pulmonary nodularity seen greater than [address] CHEST RECOMMENDATION: Follow-up screening in one year CT LUNG RAD: LUNG RAD CATEGORY 1 negative [facility], , 07/22/2024 3:31 PM
--- NOTE | 2024-07-23 00:21 | XR ---
EXAMINATION TYPE: XR lumbar spine 2 or 3V DATE OF EXAM: 07/22/2024 COMPARISON: None HISTORY: Chronic low back pain TECHNIQUE: 5V lumbar spine FINDINGS: There are 5 lumbar-type vertebral bodies. Pedicles are intact. Diffuse loss of disc heights throughout the lumbar spine. Some mild spondylosis is present. Facet degenerative changes are presen t. IMPRESSION: 1. Spondylosis and diffuse facet degenerative changes lumbar spine. 2. Moderate degenerative disc changes with narrowing of disc height [facility], , 07/23/2024 12:19 AM
== END | disposition home or self-care (01) ==
LOC: RADCTMAIN 14:17
PROVIDERS: ATTEND Family Medicine
DX: Z12.2 Encounter for screening for malignant neoplasm of respiratory organs (principal); G89.29 Other chronic pain; M54.50 Low back pain, unspecified; Z87.891 Personal history of nicotine dependence; M47.816 Spondylosis without myelopathy or radiculopathy, lumbar region; M48.061 Spinal stenosis, lumbar region without neurogenic claudication
CPT/HCPCS: 71271; 72100

== ENCOUNTER 2024-08-19 14:29 | Emergency (ER) | payer MEDICARE, OTHER ==
--- NOTE | 2024-08-19 15:20 | ED ---
General Adult HPI - General Chief complaint: Psychiatric Symptoms Stated complaint: Mental health eval Time Seen by Provider: 08/19/24 14:50 Source: patient, RN notes reviewed, old records reviewed Mode of arrival: ambulatory Limitations: no limitations - History of Present Illness Initial comments: This is a 69-year-old male who has a court order to be evaluated the emergency department. Patient denies suicidal homicidal ideations. Patient denies any physical complaints today. Patient states he does not think he needs to be here. Patient denies any chest pain difficulty breathing or shortness of breath. Patient is any fever chills or cough or patient has any abdominal pain patient has nausea vomiting diarrhea. - Related Data Home Medications Medication Instructions Recorded Confirmed ARIPiprazole [Abilify Maintena] 200 mg IM Q28D 08/19/24 08/19/24 Divalproex ER [Depakote ER] 1,000 mg PO HS 08/19/24 08/19/24 [place] Carbonate ER [Lithobid] 450 mg PO BID@0900,1700 08/19/24 08/19/24 Allergies Allergy/AdvReac Type Severity Reaction Status Date / Time Phenothiazines Allergy Unknown Verified 08/19/24 15:43 haloperidol [From Haldol] AdvReac passes out Verified 08/19/24 15:43 haloperidol lactate AdvReac passes out Verified 08/19/24 15:43 [From Haldol] Review of Systems ROS Statement: Those systems with pertinent positive or pertinent negative responses have been documented in the HPI. ROS Other: All systems not noted in ROS Statement are negative. Past Medical History Past Medical History: Unable to Obtain, Heart Failure, Hypertension, Thyroid Disorder Additional Past Medical History / Comment(s): INFORMATION OBTAINED FROM PREVIOUS CHARTS. History of Any Multi-Drug Resistant Organisms: None Reported Past Surgical History: Unable to Obtain, Orthopedic Surgery Additional Past Surgical History / Comment(s): INFORMATION OBTAINED FROM PREVIOUS CHARTING Past Anesthesia/Blood Transfusion Reactions: Unable to Obtain Past Psychological History: Anxiety, Depression, Schizophrenia Smoking Status: Current every day smoker, Vaper Past Alcohol Use History: Occasional Past Drug Use History: Cocaine, Heroin, Methamphetamine, Opiates, Prescription Drug Abuse - Past Family History Father Additional Family Medical History / Comment(s): The patient refused to answer questions General Exam - General Exam Comments Initial Comments: GENERAL: Patient is well-developed and well-nourished. Patient is nontoxic and well- hydrated and is in no acute distress. ENT: Neck is soft and supple. No significant lymphadenopathy is noted. Oropharynx is clear. Moist mucous membranes. Neck has full range of motion without eliciting any pain. EYES: The sclera were anicteric and conjunctiva were pink and moist. Extraocular movements were intact and pupils were equal round and reactive to light. Eyelids were unremarkable. PULMONARY: Unlabored respirations. Good breath sounds bilaterally. No audible rales rhonchi or wheezing was noted. CARDIOVASCULAR: There is a regular rate and rhythm without any murmurs gallops or rubs. ABDOMEN: Soft and nontender with normal bowel sounds. SKIN: Skin is clear with no lesions or rashes and otherwise unremarkable. NEUROLOGIC: Patient is alert and oriented x3. Cranial nerves II through XII are grossly intact. Motor and sensory are also intact. Normal speech, volume and content. Symmetrical smile. MUSCULOSKELETAL: Normal extremities with adequate strength and full range of motion. LYMPHATICS: No significant lymphadenopathy is noted PSYCHIATRIC: Patient denies suicidal or homicidal ideations. Limitations: no limitations Course Vital Signs 08/19/24 14:39 Temperature 98.5 F Pulse Rate 92 Respiratory 20 Rate Blood Pressure 135/76 O2 Sat by Pulse 96 Oximetry Medical Decision Making - Medical Decision Making Was pt. sent in by a medical professional or institution (ELIZABETH Orellana, SMOKE AND FLAME SPECIALIST, urgent care, hospital, or jail...) When possible be specific @ -No Did you speak to anyone other than the patient for history (EMS, parent, family, police, friend...)? What history was obtained from this source @ -No Did you review nursing and triage notes (agree or disagree)? Why? @ -I reviewed and agree with nursing and triage notes Were old charts reviewed (outside hosp., previous admission, EMS record, old EKG, old radiological studies, urgent care reports/EKG's, jail records)? Report findings @ -No old charts were reviewed Differential Diagnosis? @ -Differential Mental Health Depression, anxiety, bipolar, psychosis, schizophrenia, borderline personality, situational depression, adjustment disorder, behavioral disorder, brain tumor, malingering, substance abuse, encephalopathy, medication reaction, dementia, hypothyroidism, degenerative neurologic disorder, lupus.... This is not meant to be all-inclusive list EKG interpreted by me (3pts min.). @ -As above X-rays interpreted by me (1pt min.). @ -None done CT interpreted by me (1pt min.). @ -None done U/S interpreted by me (1pt. min.). @ -None done What testing was considered but not performed or refused? (CT, X-rays, U/S, labs)? Why? @ -None What meds were considered but not given or refused? Why? @ -None Did you discuss the management of the patient with other professionals (professionals i.e. , PA, SMOKE AND FLAME SPECIALIST, lab, RT, psych nurse, vp digital marketing social media and crm, [id number] [id number] armor crewman, teacher, annual giving officer, hospice case manager)? Give summary @ -EPS evaluated the patient and spoke with the psychiatrist and the patient can be discharged home with a safety plan. Was smoking cessation discussed for >3mins.? @ -No Was critical care preformed (if so, how long)? @ -No Were there social determinants of health that impacted care today? How? (Home lessness, low income, unemployed, alcoholism, drug addiction, transportation, low edu. Level, literacy, decrease access to med. care, correction, rehab)? @ -No Was there de-escalation of care discussed even if they declined (Discuss DNR or withdrawal of care, Hospice)? DNR status @ -No What co-morbidities impacted this encounter? (DM, HTN, Smoking, COPD, CAD, Cancer, CVA, ARF, Chemo, Hep., AIDS, mental health diagnosis, sleep apnea, morbid obesity)? @ -None Was patient admitted / discharged? Hospital course, mention meds given and route, prescriptions, significant lab abnormalities, going to OR and other pertinent info. @ -Patient had blood work done which showed no acute abnormality. Patient him self had no complaints. Patient was evaluated by EPS and they be discharged home Undiagnosed new problem with uncertain prognosis? @ -No Drug Therapy requiring intensive monitoring for toxicity (Heparin, Nitro, Insulin, Cardizem)? @ -No Were any procedures done? @ -No Diagnosis/symptom? @ -Psychiatric evaluate Acute, or Chronic, or Acute on Chronic? @ -Acute on chronic Uncomplicated (without systemic symptoms) or Complicated (systemic symptoms)? @ -Complicate Side effects of treatment? @ -No Exacerbation, Progression, or Severe Exacerbation? @ -No Poses a threat to life or bodily function? How? (Chest pain, [place], [place], pneumonia, PE, COPD, DKA, ARF, appy, cholecystitis, CVA, Diverticulitis, Homicidal, Suicidal, threat to staff... and all critical care pts) @ -No - Lab Data Result diagrams: 08/19/24 16:22 08/19/24 16:22 Lab Results 08/19/24 08/19/24 08/19/24 Range/Units 16:15 16:22 16:22 WBC 9.4 (3.8-10.6) k/uL RBC 3.57 L (4.30-5.90) m/uL Hgb 10.8 L (13.0-17.5) gm/dL Hct 33.9 L (39.0-53.0) % MCV 94.8 (80.0-100.0) fL MCH 30.2 (25.0-35.0) pg MCHC 31.8 (31.0-37.0) g/dL RDW 14.8 (11.5-15.5) % Plt Count 365 (150-450) k/uL MPV 8.0 Neutrophils % 70 % Lymphocytes % 20 % Monocytes % 6 % Eosinophils % 2 % Basophils % 1 % Neutrophils # 6.6 (1.3-7.7) k/uL Lymphocytes # 1.9 (1.0-4.8) k/uL Monocytes # 0.5 (0-1.0) k/uL Eosinophils # 0.2 (0-0.7) k/uL Basophils # 0.1 (0-0.2) k/uL Sodium 140 (137-145) mmol/L Potassium 4.7 (3.5-5.1) mmol/L Chloride 109 H (98-107) mmol/L Carbon Dioxide 25 (22-30) mmol/L Anion Gap 6 mmol/L BUN 17 (9-20) mg/dL Creatinine 1.15 (0.66-1.25) mg/dL Est GFR (CKD-EPI)AfAm 76 (>60 ml/min/1.73 sqM) Est GFR (CKD-EPI)NonAf 66 (>60 ml/min/1.73 sqM) Glucose 75 (74-99) mg/dL Calcium 8.9 (8.4-10.2) mg/dL Urine Opiates Screen Not Detected (NotDetected) Ur Oxycodone Screen Not Detected (NotDetected) Urine Methadone Screen Not Detected (NotDetected) Ur Barbiturates Screen Not Detected (NotDetected) U Tricyclic Antidepress Not Detected (NotDetected) Ur Phencyclidine Scrn Not Detected (NotDetected) Ur Amphetamines Screen Detected H (NotDetected) U Methamphetamines Scrn Detected H (NotDetected) U Benzodiazepines Scrn Not Detected (NotDetected) Urine Cocaine Screen Detected H (NotDetected) U Marijuana (THC) Screen Detected H (NotDetected) Disposition Clinical Impression: Encounter for psychiatric assessment Disposition: HOME SELF-CARE Condition: Good Additional Instructions: Should follow the safety plan Is patient prescribed a controlled substance at d/c from ED?: No Referrals: Portia Santana MD [Primary Care Provider] - 1-2 days Time of Disposition: 19:42
[2024-08-19 16:49] LABS: Amphetamine Screen,Urine Detected (NotDetected); Barbiturate Screen,Urine Not Detected (NotDetected); Benzodiazepines Screen,Urine Not Detected (NotDetected); Cocaine Screen,Urine Detected (NotDetected); Methadone Screen, Urine Not Detected (NotDetected); Opiate Screen,Urine Not Detected (NotDetected); Oxycodone Screen, Urine Not Detected (NotDetected); Phencyclidine Screen,Urine Not Detected (NotDetected); Tricyclic Antidepressant,Urine Not Detected (NotDetected); Urn Cannabinoid Scrn Detected (NotDetected)
[2024-08-19 17:00] LABS: Basophils # (A) 0.1 k/uL (0-0.2); Basophils % (A) 1 %; Eosinophils # (A) 0.2 k/uL (0-0.7); Eosinophils % (A) 2 %; HCT 33.9 % (39.0-53.0); HGB 10.8 gm/dL (13.0-17.5); Lymphocytes # (A) 1.9 k/uL (1.0-4.8); Lymphocytes % (A) 20 %; MCH 30.2 pg (25.0-35.0); MCHC 31.8 g/dL (31.0-37.0); MCV 94.8 fL (80.0-100.0); Monocytes # (A) 0.5 k/uL (0-1.0); Monocytes % (A) 6 %; Neutrophils # (A) 6.6 k/uL (1.3-7.7); Neutrophils % (A) 70 %; Platelet Count 365 k/uL (150-450); RBC 3.57 m/uL (4.30-5.90); RDW 14.8 % (11.5-15.5); WBC 9.4 k/uL (3.8-10.6)
[2024-08-19 17:09] LABS: African American GFR (CKD) 76 (>60 ml/min/1.73 sqM); Anion Gap 6 mmol/L; Blood Urea Nitrogen 17 mg/dL (9-20); Calcium 8.9 mg/dL (8.4-10.2); Carbon Dioxide 25 mmol/L (22-30); Chloride 109 mmol/L (98-107); Glucose 75 mg/dL (74-99); Non-African American GFR(CKD) 66 (>60 ml/min/1.73 sqM); Potassium 4.7 mmol/L (3.5-5.1); Sodium 140 mmol/L (137-145)
[2024-08-19] MEDS: HYDROcodone/APAP 5-325MG 1 EACH TAB PO STA (20:12)
[2024-08-19] MEDS: ACETAMINOPHEN TAB 500 MG TAB PO STA (20:14)
[2024-08-19 20:25] VITALS: BP 128/72; PULSE 90; RESP 17; TEMP 98.1
== END 2024-08-19 20:24 | disposition home or self-care (01) ==
LOC: EC 14:29
CPT/HCPCS: 36415; 80048; 80306; 82075; 85025; 99285

== ENCOUNTER 2024-08-20 03:58 | Emergency (ER) | payer MEDICARE, OTHER ==
[2024-08-20 04:10] VITALS: RESP 18
--- NOTE | 2024-08-20 05:41 | ED ---
General Adult HPI - General Chief complaint: Extremity Injury, Lower Stated complaint: Knee injury Time Seen by Provider: 08/20/24 05:22 Source: patient, RN notes reviewed, old records reviewed Mode of arrival: ambulatory - History of Present Illness Initial comments: Patient is a 69-year-old male with past medical history remarkable for polysubstance abuse, psychiatric history presents emergency department for left knee pain. Was seen yesterday for mental health evaluation and cleared and discharged home. At that time patient did have bedbugs. He put on the same close and went home and returned in the same close with all the bedbugs on him. States he feels like he is being attacked by bedbugs. Patient was Decon and that numerous bedbugs were found on the patient. Patient was placed in paper close. I evaluated the patient after Decon. Complaining of left knee pain that "clicks." States it is somewhat chronic but worse over the last 3 days. Presen ts for further evaluation. Does endorse a fall a few days ago onto his left knee. No other injuries from that incident presents for further evaluation. - Related Data Home Medications Medication Instructions Recorded Confirmed ARIPiprazole [Abilify Maintena] 200 mg IM Q28D 08/19/24 08/19/24 Divalproex ER [Depakote ER] 1,000 mg PO HS 08/19/24 08/19/24 [place] Carbonate ER [Lithobid] 450 mg PO BID@0900,1700 08/19/24 08/19/24 Allergies Allergy/AdvReac Type Severity Reaction Status Date / Time Phenothiazines Allergy Unknown Verified 08/20/24 04:10 haloperidol [From Haldol] AdvReac passes out Verified 08/20/24 04:10 haloperidol lactate AdvReac passes out Verified 08/20/24 04:10 [From Haldol] Review of Systems ROS Statement: Those systems with pertinent positive or pertinent negative responses have been documented in the HPI. Review of Systems: CONST: Denies fever EYES: Denies blurry vision ENT: Denies nasal congestion C/V: Denies Chest pain RESP: Denies shortness of breath GI: Denies abdominal pain : Denies dysuria SKIN: Denies rash. MSK: Endorses left knee pain NEURO: Denies headache ROS Other: All systems not noted in ROS Statement are negative. Past Medical History Past Medical History: Unable to Obtain, Heart Failure, Hypertension, Thyroid Disorder Additional Past Medical History / Comment(s): INFORMATION OBTAINED FROM PREVIOUS CHARTS. History of Any Multi-Drug Resistant Organisms: None Reported Past Surgical History: Unable to Obtain, Orthopedic Surgery Additional Past Surgical History / Comment(s): INFORMATION OBTAINED FROM PREVIOUS CHARTING Past Anesthesia/Blood Transfusion Reactions: Unable to Obtain Past Psychological History: Anxiety, Depression, Schizophrenia Smoking Status: Current every day smoker, Vaper Past Alcohol Use History: Occasional Past Drug Use History: Cocaine, Heroin, Methamphetamine, Opiates, Prescription Drug Abuse - Past Family History Father Additional Family Medical History / Comment(s): The patient refused to answer questions General Exam - General Exam Comments Initial Comments: General: Appears in no acute distress. HEAD: Normal with no signs of head trauma. EYES: EOMI. ENT: Hearing grossly intact. RESPIRATORY: No respiratory distress. C/V: Regular rate and rhythm. ABD: Abdomen is nondistended. EXT: No obvious deformity. Full range of motion of the left knee. Some pain with range of motion. Able to ambulate without difficulty. Neurovascular intact throughout the left lower extremity. SKIN: No rashes or lesions observed on exposed skin. NEURO: Alert and oriented. Course Vital Signs 08/20/24 08/20/24 04:08 06:40 Temperature 98.7 F 97.8 F Pulse Rate 87 76 Respiratory 18 18 Rate Blood Pressure 122/69 123/80 O2 Sat by Pulse 97 96 Oximetry Medical Decision Making - Medical Decision Making Was pt. sent in by a medical professional or institution (, PA, PLASTERER HELPER, urgent care, hospital, or assisted...) When possible be specific @ -No Did you speak to anyone other than the patient for history (EMS, parent, family, police, friend...)? What history was obtained from this source @ -No Did you review nursing and triage notes (agree or disagree)? Why? @ -I reviewed and agree with nursing and triage notes Were old charts reviewed (outside hosp., previous admission, EMS record, old EKG, old radiological studies, urgent care reports/EKG's, assisted records)? Report findings @ -No old charts were reviewed Differential Diagnosis (chest pain, altered mental status, abdominal pain women, abdominal pain men, vaginal bleeding, weakness, fever, dyspnea, syncope, headache, dizziness, GI bleed, back pain, seizure, CVA, palpatations, mental health, musculoskeletal)? @ -Differential musculoskeletal EKG interpreted by me (3pts min.). @ -None done X-rays interpreted by me (1pt min.). @ - Left knee xray showed no obvious traumatic injury. CT interpreted by me (1pt min.). @ -None done U/S interpreted by me (1pt. min.). @ -None done What testing was considered but not performed or refused? (CT, X-rays, U/S, labs)? Why? @ -None What meds were considered but not given or refused? Why? @ -None Did you discuss the management of the patient with other professionals (professionals i.e. , PA, PLASTERER HELPER, lab, RT, psych nurse, social service coordinator, advertising consultant, teacher, house officer, returned case inspector)? Give summary @ -No Was smoking cessation discussed for >3mins.? @ -No Was critical care preformed (if so, how long)? @ -No Were there social determinants of health that impacted care today? How? (Homelessness, low income, unemployed, alcoholism, drug addiction, transportation, low edu. Level, literacy, decrease access to med. care, assisted, rehab)? @ -No Was there de-escalation of care discussed even if they declined (Discuss DNR or withdrawal of care, Hospice)? DNR status @ -No What co-morbidities impacted this encounter? (DM, HTN, Smoking, COPD, CAD, Cancer, CVA, ARF, Chemo, Hep., AIDS, mental health diagnosis, sleep apnea, morbid obesity)? @ -None Was patient admitted / discharged? Hospital course, mention meds given and route, prescriptions, significant lab abnormalities, going to OR and other pertinent info. @ -Patient presents with left knee pain. Seems somewhat chronic however did have a recent fall. Also found to have bedbugs in his declined. Resting comfortably at this time. We will obtain x-ray of the left knee as well as provide the patient with Tylenol. Patient was in agreement this plan. Vitals are within acceptable limits. Exam unremarkable. X-ray reveals no obvious traumatic injury. Patient will be given in an Jb wrap as he is ambulating throughout the department without issue. Discussed results with him. He was in agreement with this plan. Discussed proper hygiene regarding his bedbug infestation and symptomatic treatment with Benadryl cream as needed. I instructed the patient to follow up with their PCP in the next 1-3 days. I provided contact information for follow up with orthopedics. I explained that the patient should return to the emergency department if they experience any worsening symptoms. Strict return precautions were discussed with the patient. The patient expressed understanding of these instructions. I answered all questions that the patient had. The patient was discharged home in good condition with their prescriptions and follow up information. Undiagnosed new problem with uncertain prognosis? @ -No Drug Therapy requiring intensive monitoring for toxicity (Heparin, Nitro, Insulin, Cardizem)? @ -No Were any procedures done? @ -No Diagnosis/symptom? @ -Bedbugs, left knee sprain Acute, or Chronic, or Acute on Chronic? @ -Acute Uncomplicated (without systemic symptoms) or Complicated (systemic symptoms)? @ -Uncomplicated Side effects of treatment? @ -No Exacerbation, Progression, or Severe Exacerbation? @ -No Poses a threat to life or bodily function? How? (Chest pain, [place], [place], pneumonia, PE, COPD, DKA, ARF, appy, cholecystitis, CVA, Diverticulitis, Homicidal, Suicidal, threat to staff... and all critical care pts) @ -Unlikely Disposition Clinical Impression: Bedbug bite, Left knee sprain Disposition: HOME SELF-CARE Condition: Good Instructions (If sedation given, give patient instructions): Knee Sprain (ED) Is patient prescribed a controlled substance at d/c from ED?: No Referrals: Portia Santana MD [Primary Care Provider] - 1-2 days Kt Torres MD [STAFF PHYSICIAN] - 1-2 days Time of Disposition: 06:27
[2024-08-20] MEDS: ACETAMINOPHEN TAB 500 MG TAB PO STA (06:11)
[2024-08-20 06:58] VITALS: BP 123/80; PULSE 76; TEMP 97.8
--- NOTE | 2024-08-20 07:08 | XR ---
EXAM: XR Left Knee, 3 Views CLINICAL HISTORY: ITS.REASON XR Reason: pain TECHNIQUE: Three views of the left knee. COMPARISON: XR Knee dated 10/27/2016 FINDINGS: Bones/joints: Joint space narrowing, mostly of the medial and patellofemoral compartments. Small osteophytes in all 3 compartments. Prominent patellar enthesophytes, similar to the prior. Query small suprapatellar joint effusion. No acute fracture. No dislocation. Soft tissues: Unremarkable. IMPRESSION: 1. No evidence of acute fracture or dislocation. 2. Tricompartmental osteoarthritis. 3. Query small suprapatellar joint effusion.
== END 2024-08-20 08:08 | disposition home or self-care (01) ==
LOC: EC 03:58
CPT/HCPCS: 99283

== ENCOUNTER 2024-08-22 13:33 | Inpatient (IN) | payer MEDICARE, MEDICAID ==
--- NOTE | 2024-08-22 13:46 | ED ---
Psych HPI - General Source: patient, RN notes reviewed Mode of arrival: ambulatory Limitations: no limitations <Rhonda Dodson - Last Filed: 08/22/24 13:45> <Huang Arias - Last Filed: 08/22/24 18:05> - General Stated Complaint: Mental health Time Seen by Provider: 08/22/24 13:45 - History of Present Illness Initial Comments: Quick note: 69-year-old male presenting to the ER for mental health evaluation. Patient reports HI with no plan. No drugs or alcohol. (Rhonda Dodson) This is an 69-year-old male who states he was told to come in by [facility]. Patient states he went to [facility] today and they told him he needs to come to the emergency department to be evaluated. Patient states he is not suicidal homicidal. Patient states he did not think he did anything that would warrant him coming here. Patient denies any physical complaints today. Patient denies any alcohol or drugs today. (Huang Arias) - Related Data Home Medications Medication Instructions Recorded Confirmed ARIPiprazole [Abilify Maintena] 200 mg IM Q28D 08/19/24 08/19/24 Divalproex ER [Depakote ER] 1,000 mg PO HS 08/19/24 08/19/24 [place] Carbonate ER [Lithobid] 450 mg PO BID@0900,1700 08/19/24 08/19/24 Allergies Allergy/AdvReac Type Severity Reaction Status Date / Time Phenothiazines Allergy Unknown Verified 08/22/24 14:29 haloperidol [From Haldol] AdvReac passes out Verified 08/22/24 14:29 haloperidol lactate AdvReac passes out Verified 08/22/24 14:29 [From Haldol] Review of Systems ROS Other: All systems not noted in ROS Statement are negative. <Rhonda Dodson - Last Filed: 08/22/24 13:45> ROS Other: All systems not noted in ROS Statement are negative. <Huang Arias - Last Filed: 08/22/24 18:05> ROS Statement: Those systems with pertinent positive or pertinent negative responses have been documented in the HPI. Past Medical History Past Medical History: Unable to Obtain, Heart Failure, Hypertension, Thyroid Disorder Additional Past Medical History / Comment(s): INFORMATION OBTAINED FROM PREVIOUS CHARTS. History of Any Multi-Drug Resistant Organisms: None Reported Past Surgical History: Unable to Obtain, Orthopedic Surgery Additional Past Surgical History / Comment(s): INFORMATION OBTAINED FROM PREVIOUS CHARTING Past Anesthesia/Blood Transfusion Reactions: Unable to Obtain Past Psychological History: Anxiety, Depression, Schizophrenia Smoking Status: Current every day smoker, Vaper Past Alcohol Use History: Occasional Past Drug Use History: Cocaine, Heroin, Methamphetamine, Opiates, Prescription Drug Abuse - Past Family History Father Additional Family Medical History / Comment(s): The patient refused to answer questions <Rhonda Dodson - Last Filed: 08/22/24 13:45> General Exam <Rhonda Dodson - Last Filed: 08/22/24 13:45> <Huang Arias - Last Filed: 08/22/24 18:05> - General Exam Comments Initial Comments: Visual Physical Exam Vital signs reviewed General: Unkept, nontoxic no acute distress Head: Normocephalic, atraumatic Eyes: PERRLA, EOMI ENT: Airway patent Chest: Nonlabored breathing Skin: No visual rash, normal skin tone Neuro: Alert and oriented 3 Musculoskeletal: No gross abnormalities (Rhonda Dodson) GENERAL: Patient is well-developed and well-nourished. Patient is nontoxic and well-hydrated and is in no acute distress. ENT: Neck is soft and supple. No significant lymphadenopathy is noted. Oropharynx is clear. Moist mucous membranes. Neck has full range of motion without eliciting any pain. EYES: The sclera were anicteric and conjunctiva were pink and moist. Extraocular movements were intact and pupils were equal round and reactive to light. Eyelids were unremarkable. PULMONARY: Unlabored respirations. Good breath sounds bilaterally. No audible rales rhonchi or wheezing was noted. CARDIOVASCULAR: There is a regular rate and rhythm without any murmurs gallops or rubs. ABDOMEN: Soft and nontender with normal bowel sounds. SKIN: Skin is clear with no lesions or rashes and otherwise unremarkable. NEUROLOGIC: Patient is alert and oriented x3. Cranial nerves II through XII are grossly intact. Motor and sensory are also intact. Normal speech, volume and content. Symmetrical smile. MUSCULOSKELETAL: Normal extremities with adequate strength and full range of motion. LYMPHATICS: No significant lymphadenopathy is noted PSYCHIATRIC: Patient denies any suicidal homicidal ideations (Huang Arias) Course Vital Signs 08/22/24 08/22/24 14:29 16:00 Temperature 97.9 F Pulse Rate 95 101 H Respiratory 18 18 Rate Blood Pressure 146/76 117/80 O2 Sat by Pulse 97 99 Oximetry Medical Decision Making <Rhonda Dodson - Last Filed: 08/22/24 13:45> <Huang Arias - Last Filed: 08/22/24 18:05> - Medical Decision Making I performed the quick note portion of this chart. Electronically signed by Rhonda Dodson PA-C (Rhonda Dodson) Was pt. sent in by a medical professional or institution (ELIZABETH Orellana, ENGINEERING EQUIPMENT OPERATOR, urgent care, hospital, or [place] health care facility...) When possible be specific @ -[facility] sent the patient to be evaluated Did you speak to anyone other than the patient for history (EMS, parent, family, police, friend...)? What history was obtained from this source @ -No Did you review nursing and triage notes (agree or disagree)? Why? @ -I reviewed and agree with nursing and triage notes Were old charts reviewed (outside hosp., previous admission, EMS record, old EKG, old radiological studies, urgent care reports/EKG's, [place] health care facility records)? Report findings @ -No old charts were reviewed Differential Diagnosis? @ -Differential Mental Health Depression, anxiety, bipolar, psychosis, schizophrenia, borderline personality, situational depression, adjustment disorder, behavioral disorder, brain tumor, malingering, substance abuse, encephalopathy, medication reaction, dementia, hypothyroidism, degenerative neurologic disorder, lupus.... This is not meant to be all-inclusive list EKG interpreted by me (3pts min.). @ -As above X-rays interpreted by me (1pt min.). @ -None done CT interpreted by me (1pt min.). @ -None done U/S interpreted by me (1pt. min.). @ -None done What testing was considered but not performed or refused? (CT, X-rays, U/S, labs)? Why? @ -None What meds were considered but not given or refused? Why? @ -None Did you discuss the management of the patient with other professionals (professionals i.e. Dr., PA, ENGINEERING EQUIPMENT OPERATOR, lab, RT, psych nurse, dialysis social worker, lavatory attendant, teacher, flight communications officer, field nurse case manager)? Give summary @ -Spoke with CPS and APS wanted the patient to be admitted so the patient will be admitted patient is agreeable Was smoking cessation discussed for >3mins.? @ -No Was critical care preformed (if so, how long)? @ -No Were there social determinants of health that impacted care today? How? (Homelessness, low income, unemployed, alcoholism, drug addiction, transportation, low edu. Level, literacy, decrease access to med. care, penitentiary, rehab)? @ -No Was there de-escalation of care discussed even if they declined (Discuss DNR or withdrawal of care, Hospice)? DNR status @ -No What co-morbidities impacted this encounter? (DM, HTN, Smoking, COPD, CAD, Cancer, CVA, ARF, Chemo, Hep., AIDS, mental health diagnosis, sleep apnea, morbid obesity)? @ -None Was patient admitted / discharged? Hospital course, mention meds given and route, prescriptions, significant lab abnormalities, going to OR and other pertinent info. @ -Patient was sent in by [facility] because he is having some outbursts that are inconsistent with his baseline. Patient was evaluated by EPS and they agree the patient needs to be admitted Undiagnosed new problem with uncertain prognosis? @ -No Drug Therapy requiring intensive monitoring for toxicity (Heparin, Nitro, Insulin, Cardizem)? @ -No Were any procedures done? @ -No Diagnosis/symptom? @ -Aggressive behavior Acute, or Chronic, or Acute on Chronic? @ -Acute Uncomplicated (without systemic symptoms) or Complicated (systemic symptoms)? @ -Uncomplicated Side effects of treatment? @ -No Exacerbation, Progression, or Severe Exacerbation? @ -No Poses a threat to life or bodily function? How? (Chest pain, [place], [place], pneumonia, PE, COPD, DKA, ARF, appy, cholecystitis, CVA, Diverticulitis, Homicidal, Suicidal, threat to staff... and all critical care pts) @ -No (Huang Arias) - Lab Data Lab Results 08/22/24 Range/Units 15:56 Urine Opiates Screen Not Detected (NotDetected) Ur Oxycodone Screen Not Detected (NotDetected) Urine Methadone Screen Not Detected (NotDetected) Ur Barbiturates Screen Not Detected (NotDetected) U Tricyclic Antidepress Not Detected (NotDetected) Ur Phencyclidine Scrn Not Detected (NotDetected) Ur Amphetamines Screen Detected H (NotDetected) U Methamphetamines Scrn Detected H (NotDetected) U Benzodiazepines Scrn Not Detected (NotDetected) Urine Cocaine Screen Detected H (NotDetected) U Marijuana (THC) Screen Detected H (NotDetected) Disposition <Rhonda Dodson - Last Filed: 08/22/24 13:45> Time of Disposition: 18:05 <Huang Arias - Last Filed: 08/22/24 18:05> Clinical Impression: Aggressive behavior Disposition: ADMITTED IP TO THIS HOSP Referrals: Portia Santana MD [Primary Care Provider] - 1-2 days
[2024-08-22 16:39] LABS: Amphetamine Screen,Urine Detected (NotDetected); Barbiturate Screen,Urine Not Detected (NotDetected); Benzodiazepines Screen,Urine Not Detected (NotDetected); Cocaine Screen,Urine Detected (NotDetected); Methadone Screen, Urine Not Detected (NotDetected); Opiate Screen,Urine Not Detected (NotDetected); Oxycodone Screen, Urine Not Detected (NotDetected); Phencyclidine Screen,Urine Not Detected (NotDetected); Tricyclic Antidepressant,Urine Not Detected (NotDetected); Urn Cannabinoid Scrn Detected (NotDetected)
[2024-08-22] MEDS ORDERED: MAG HYDROX/AL HYDROX/SIMETH 355 ML BOTTLE PO PRN (20:17)
[2024-08-22] MEDS ORDERED: MAGNESIUM HYDROXIDE 2,400 MG/30 ML CUP PO PRN (20:17)
[2024-08-22] MEDS ORDERED: OLANZapine 10 MG VIAL IM PRN (20:17)
[2024-08-22] MEDS ORDERED: hydrOXYzine HCL 50 MG/ML 1 ML VIAL IM PRN (20:17)
[2024-08-22] MEDS: DIVALPROEX ER 500 MG TAB.ER.24H PO SCH (21:48)
[2024-08-22] MEDS: ACETAMINOPHEN TAB 325 MG TAB PO PRN (21:50)
[2024-08-23] MEDS: hydrOXYzine pamoate 25 MG CAP PO PRN (01:16)
[2024-08-23] MEDS: OLANZapine 5 MG TAB PO PRN (01:16)
[2024-08-23] MEDS: chlorproMAZINE 25 MG TAB PO STA (05:24)
[2024-08-23] MEDS: IBUPROFEN 600 MG TAB PO PRN (05:26)
[2024-08-23] MEDS: LITHIUM CARBONATE ER 450 MG TABLET.ER PO SCH (09:34)
[2024-08-23] MEDS: NICOTINE 14MG/24HR PATCH TRANSDERM SCH (09:35)
[2024-08-23 09:36] LABS: Basophils % (A) 1 %; Eosinophils # (A) 0.3 k/uL (0-0.7); Eosinophils % (A) 5 %; HGB 9.5 gm/dL (13.0-17.5); Hypochromasia Moderate; Lymphocytes # (A) 1.4 k/uL (1.0-4.8); Lymphocytes % (A) 23 %; MCH 29.3 pg (25.0-35.0); MCHC 30.7 g/dL (31.0-37.0); MCV 95.5 fL (80.0-100.0); Mean Platelet Volume 7.2; Monocytes # (A) 0.4 k/uL (0-1.0); Monocytes % (A) 6 %; Neutrophils # (A) 3.7 k/uL (1.3-7.7); Neutrophils % (A) 62 %; Platelet Count 314 k/uL (150-450); RBC 3.24 m/uL (4.30-5.90); RDW 14.9 % (11.5-15.5); WBC 5.9 k/uL (3.8-10.6)
[2024-08-23 09:50] LABS: ALT 15 U/L (4-49); AST 35 U/L (17-59); African American GFR (CKD) >90 (>60 ml/min/1.73 sqM); Albumin 3.3 g/dL (3.5-5.0); Alkaline Phosphatase 64 U/L (38-126); Anion Gap 4 mmol/L; Blood Urea Nitrogen 15 mg/dL (9-20); Calcium 8.6 mg/dL (8.4-10.2); Carbon Dioxide 25 mmol/L (22-30); Chloride 112 mmol/L (98-107); Glucose 96 mg/dL (74-99); Non-African American GFR(CKD) 83 (>60 ml/min/1.73 sqM); Sodium 141 mmol/L (137-145); Total Bilirubin 0.3 mg/dL (0.2-1.3)
[2024-08-23 10:53] LABS: Lithium <0.2 mmol/L
[2024-08-23] MEDS ORDERED: LORazepam 2 MG/ML INJ IM PRN (11:23)
[2024-08-23] MEDS: LORazepam 1 MG TAB PO PRN ×2 (11:32→22:00)
[2024-08-23] MEDS: risperiDONE ORAL SOLN 5 MG/5 ML CUP PO SCH (11:33)
[2024-08-23] MEDS ORDERED: flUPHENAZine 2.5 MG/ML (MDV) 10 ML VIAL IM PRN (11:45)
[2024-08-23] MEDS ORDERED: chlorproMAZINE 25 MG/ML 2 ML AMP IM PRN (11:48)
--- NOTE | 2024-08-23 11:56 | P.HP ---
Psychiatric H&P - . History & Physical: Allergies Allergy/AdvReac Type Severity Reaction Status Date / Time Phenothiazines Allergy Unknown Verified 08/22/24 18:11 haloperidol [From Haldol] AdvReac passes out Verified 08/22/24 18:11 haloperidol lactate AdvReac passes out Verified 08/22/24 18:11 [From Haldol] Vital Signs Temp 98.4 F 08/22/24 21:19 Pulse 93 08/22/24 21:19 Resp 22 08/22/24 21:19 BP 134/77 08/22/24 21:19 Pulse Ox 98 08/22/24 21:19 FiO2 Intake & Output 08/22/24 08/23/24 08/23/24 18:59 06:59 18:59 Weight 108.862 kg Laboratory Last Values WBC 5.9 k/uL (3.8-10.6) 08/23/24 09:01 RBC 3.24 m/uL (4.30-5.90) L 08/23/24 09:01 Hgb 9.5 gm/dL (13.0-17.5) L 08/23/24 09:01 Hct 31.0 % (39.0-53.0) L 08/23/24 09:01 MCV 95.5 fL (80.0-100.0) 08/23/24 09:01 MCH 29.3 pg (25.0-35.0) 08/23/24 09:01 MCHC 30.7 g/dL (31.0-37.0) L 08/23/24 09:01 RDW 14.9 % (11.5-15.5) 08/23/24 09:01 Plt Count 314 k/uL (150-450) 08/23/24 09:01 MPV 7.2 08/23/24 09:01 Neutrophils % 62 % 08/23/24 09:01 Lymphocytes % 23 % 08/23/24 09:01 Monocytes % 6 % 08/23/24 09:01 Eosinophils % 5 % 08/23/24 09:01 Basophils % 1 % 08/23/24 09:01 Neutrophils # 3.7 k/uL (1.3-7.7) 08/23/24 09:01 Lymphocytes # 1.4 k/uL (1.0-4.8) 08/23/24 09:01 Monocytes # 0.4 k/uL (0-1.0) 08/23/24 09:01 Eosinophils # 0.3 k/uL (0-0.7) 08/23/24 09:01 Basophils # 0.0 k/uL (0-0.2) 08/23/24 09:01 Hypochromasia Moderate 08/23/24 09:01 Sodium 141 mmol/L (137-145) 08/23/24 09:01 Potassium 4.0 mmol/L (3.5-5.1) 08/23/24 09:01 Chloride 112 mmol/L (98-107) H 08/23/24 09:01 Carbon Dioxide 25 mmol/L (22-30) 08/23/24 09:01 Anion Gap 4 mmol/L 08/23/24 09:01 BUN 15 mg/dL (9-20) 08/23/24 09:01 Creatinine 0.94 mg/dL (0.66-1.25) 08/23/24 09:01 Est GFR (CKD-EPI)AfAm >90 (>60 ml/min/1.73 sqM) 08/23/24 09:01 Est GFR (CKD-EPI)NonAf 83 (>60 ml/min/1.73 sqM) 08/23/24 09:01 Glucose 96 mg/dL (74-99) 08/23/24 09:01 Calcium 8.6 mg/dL (8.4-10.2) 08/23/24 09:01 Total Bilirubin 0.3 mg/dL (0.2-1.3) 08/23/24 09:01 AST 35 U/L (17-59) 08/23/24 09:01 ALT 15 U/L (4-49) 08/23/24 09:01 Alkaline Phosphatase 64 U/L (38-126) 08/23/24 09:01 Total Protein 6.0 g/dL (6.3-8.2) L 08/23/24 09:01 Albumin 3.3 g/dL (3.5-5.0) L 08/23/24 09:01 TSH 1.790 mIU/L (0.465-4.680) 08/23/24 09:01 Urine Opiates Screen Not Detected (NotDetected) 08/22/24 15:56 Ur Oxycodone Screen Not Detected (NotDetected) 08/22/24 15:56 Urine Methadone Screen Not Detected (NotDetected) 08/22/24 15:56 Ur Barbiturates Screen Not Detected (NotDetected) 08/22/24 15:56 U Tricyclic Antidepress Not Detected (NotDetected) 08/22/24 15:56 Ur Phencyclidine Scrn Not Detected (NotDetected) 08/22/24 15:56 Ur Amphetamines Screen Detected (NotDetected) H 08/22/24 15:56 U Methamphetamines Scrn Detected (NotDetected) H 08/22/24 15:56 U Benzodiazepines Scrn Not Detected (NotDetected) 08/22/24 15:56 [place] <0.2 mmol/L 08/23/24 09:01 Urine Cocaine Screen Detected (NotDetected) H 08/22/24 15:56 U Marijuana (THC) Screen Detected (NotDetected) H 08/22/24 15:56 Influenza Type A (PCR) Not Detected (Not Detectd) 08/22/24 18:01 Influenza Type B (PCR) Not Detected (Not Detectd) 08/22/24 18:01 RSV (PCR) Not Detected (Not Detectd) 08/22/24 18:01 SARS-CoV-2 (PCR) Not Detected (Not Detectd) 08/22/24 18:01 08/23/24 11:40 IDENTIFYING DATA: Patient is a 69-year-old male HPI: per chart, patient presented for homicidal ideations. Interlocker Maintainer attempted to interview patient, however patient was floridly psychotic. Patient made several illogical statements, and was giving field underwriter to her off the unit and displaying bizarre behavior. He later got agitated and needed emergency medications. PSYCHIATRIC HISTORY: -schizoaffective disorder: bipolar type with multiple hospitalizations -admitted in February 2023 for ninfa/paranoia/noncompliance and discharged on Abilify Maintena, depakote, [place], -past meds: depakote, abilify, melatonin, abilify maintena, lithium, Latuda, prolixin / prolixin Deconoate, trazodone, wellbutrin, PMH:Heart Failure, Hypertension, Thyroid Disorder ALLERGIES: as per EMR CHEMICAL DEPENDENCY HISTORY: as per HPI FAMILY PSYCHIATRIC/SUBSTANCE USE HISTORY: unable to obtain SOCIAL HISTORY: Unable to obtain. MENTAL STATUS EXAM: General Appearance: Patient appears to be tall, disheveled, long hair. Older than stated age is alert, appears to be aggressive and intimidating. long hair, unkempt. Patient appears to have poor hygiene and grooming. Behavior: cooperative Speech: Patient's speech is loud and disorganized Mood/Affect: full range Suicidality/Homicidality: unable to assess as patient is disorganized Perceptions: unable to assess as patient is disorganized Though content/process: disorganized, illogical, delusional loosely formed. bizarre. loose associations. Memory and concentration: unable to assess Judgment and insight: poor/impulsive STRENGTHS/WEAKNESSES: strength is that patient is [resilient]. Weakness is that patient [has poor judgment and is impulsive] INTELLECT: [below average] IMPRESSIONS: Schizoaffective disorder: bipolar type PLAN: -Patient is admitted under [voluntary] status to MHU for stabilization of psychiatric symptoms and safety. -Medications : Risperdal 1 mg bid, Depakote 500 mg bid -Primary team to inquire the last abilify maintena dose on Sunday -Ativan and Thorazine PRN for agitation/aggression -Internal Medicine consult to perform medical evaluation and physical. -SW on board for discharge planning. Encourage patient to participate in groups to work on coping skills.] []
[2024-08-23] MEDS: DIVALPROEX ER 500 MG TAB.ER.24H PO SCH (13:14)
--- NOTE | 2024-08-23 15:04 | XR ---
EXAMINATION TYPE: XR chest 1V portable DATE OF EXAM: 08/23/2024 Comparison: 06/07/2018 Clinical History: 69-year-old male Aspiration Findings: The heart is upper limits of normal in size. Mild diffuse interstitial density is increased. No pleur al effusion. Impression: Increased diffuse interstitial density. Early aspiration or early interstitial edema not excluded at this time. [facility], , 08/23/2024 3:01 PM
[2024-08-23] MEDS ORDERED: DIVALPROEX ER 500 MG TAB.ER.24H PO SCH (17:00)
[2024-08-23] MEDS: LORazepam 1 MG TAB PO ONE (19:32)
[2024-08-23] MEDS: chlorproMAZINE 25 MG TAB PO ONE (19:32)
--- NOTE | 2024-08-23 19:35 | P.CONS ---
History of Present Illness - History of Present Illness This is a pleasant 69 years old male with multiple past medical problems incl uding Heart Failure, Hypertension, hypothyroidism He presented because [facility] worker were concerned about safety, he got her easily agitated and aggressive Patient seen and examined in the dining room. He was sitting calm cooperative but sleepy, he falls asleep during conversation. He received several doses of sedatives and hypnotics like chlorpromazine, Depakote, lithium and Ativan as well as Zyprexa However patient denies any specific complaints. No chest pain or dyspnea. No abdominal pain or vomiting or diarrhea. No urinary complaint. No headache dizziness weakness or numbness After rounding on the patient I got a page from the bedside nurse that patient has choked with his food with piece of broccoli, staff did Heimlich maneuver for him, and that currently he is stable but cxr showing prominant interstitial marking suspicious to aspration vs chf Patient vital stable and afebrile Labs showing hemoglobin of 9.5 which is slightly lower than previous baseline of 10.8. BMP is unremarkable, creatinine normal 0.9. Liver enzymes not elevated. TSH 1.7 methamphetamine/amphetamine, cocaine and marijuana Influenza A and type B, RSV, SARS (coronavirus) are undetected Chest x-ray: Increased diffuse interstitial density. Either of aspiration or early interstitial edema not excluded at this time. I reviewed the chest x-ray by myself. Review of Systems Review of systems CONSTITUTIONAL: No fever, no malaise, no fatigue. HEENT: No recent visual problems or hearing problems. Denied any sore throat. CARDIOVASCULAR: No orthopnea, PND, no palpitations, no syncope. PULMONARY: No shortness of breath, no cough, no hemoptysis. GASTROINTESTINAL: No diarrhea, no nausea, no vomiting, no abdominal pain. Normoactive bowel sounds. NEUROLOGICAL: No headaches, no weakness, no numbness. HEMATOLOGICAL: Denies any bleeding or petechiae. GENITOURINARY: Denies any burning micturition, frequency, or urgency. MUSCULOSKELETAL/RHEUMATOLOGICAL: Denies any joint pain, swelling, or any muscle pain. ENDOCRINE: Denies any polyuria or polydipsia. Past Medical History Past Medical History: Unable to Obtain, Heart Failure, Hypertension, Thyroid Disorder Additional Past Medical History / Comment(s): INFORMATION OBTAINED FROM PREVIOUS CHARTS. BED BUGS 08/22/24 History of Any Multi-Drug Resistant Organisms: None Reported Past Surgical History: Unable to Obtain, Orthopedic Surgery Additional Past Surgical History / Comment(s): INFORMATION OBTAINED FROM PREVIOUS CHARTING Past Anesthesia/Blood Transfusion Reactions: Unable to Obtain Past Psychological History: Anxiety, Depression, Schizophrenia Smoking Status: Current every day smoker, Vaper Past Alcohol Use History: Occasional Past Drug Use History: Cocaine, Marijuana, Methamphetamine, Opiates, Prescription Drug Abuse - Past Family History Father Additional Family Medical History / Comment(s): The patient refused to answer questions Medications and Allergies Home Medications Medication Instructions Recorded Confirmed Type ARIPiprazole [Abilify Maintena] 200 mg IM Q28D 08/19/24 08/22/24 History Divalproex ER [Depakote ER] 1,000 mg PO HS 08/19/24 08/22/24 History [place] Carbonate ER [Lithobid] 450 mg PO BID@0900,1700 08/19/24 08/22/24 History Allergies Allergy/AdvReac Type Severity Reaction Status Date / Time Phenothiazines Allergy Unknown Verified 08/22/24 18:11 haloperidol [From Haldol] AdvReac passes out Verified 08/22/24 18:11 haloperidol lactate AdvReac passes out Verified 08/22/24 18:11 [From Haldol] Physical Exam Vitals: Vital Signs Temp Pulse Pulse Resp BP BP Pulse Ox 08/22/24 21:19 98.4 F 93 22 134/77 98 08/22/24 18:55 91 18 129/96 98 08/22/24 16:00 101 H 18 117/80 99 08/22/24 14:29 97.9 F 95 18 146/76 97 -GENERAL: The patient is alert and oriented x3, patient however is sleepy, he for sleep during the conversation, readily wakes up. Not in any acute distress. Well developed, well nourished. HEENT: Pupils are round and equally reacting to light. EOMI. No scleral icterus. No conjunctival pallor. Normocephalic, atraumatic. No pharyngeal erythema. No thyromegaly. CARDIOVASCULAR: S1 and S2 present. No murmurs, rubs, or gallops. PULMONARY: Chest is clear to auscultation, no wheezing , no crackles. ABDOMEN: Soft, nontender, nondistended, normoactive bowel sounds. No palpable organomegaly. MUSCULOSKELETAL: No joint swelling or deformity. EXTREMITIES: No cyanosis, clubbing, or pedal edema. NEUROLOGICAL: Gross neurological examination did not reveal any focal deficits. SKIN: No rashes. no petechiae. Results CBC & Chem 7: 08/23/24 09:01 08/23/24 09:01 Labs: Abnormal Lab Results - Last 24 Hours (Table) 08/22/24 08/23/24 08/23/24 Range/Units 15:56 09:01 09:01 RBC 3.24 L (4.30-5.90) m/uL Hgb 9.5 L (13.0-17.5) gm/dL Hct 31.0 L (39.0-53.0) % MCHC 30.7 L (31.0-37.0) g/dL Chloride 112 H (98-107) mmol/L Total Protein 6.0 L (6.3-8.2) g/dL Albumin 3.3 L (3.5-5.0) g/dL Ur Amphetamines Screen Detected H (NotDetected) U Methamphetamines Scrn Detected H (NotDetected) Urine Cocaine Screen Detected H (NotDetected) U Marijuana (THC) Screen Detected H (NotDetected) Assessment and Plan Assessment: Schizoaffective disorders, bipolar type Episode of aspiration while in mental health unit followed by hammock maneuver w ith chest x-ray showing possible interstitial pneumonitis versus CHF Substance abuse with methamphetamine/amphetamine, cocaine and marijuana anemia , normocytic. Hypertension Hypothyroidism CHF, without acute exacerbation Nicotine dependence Plan: We will defer mental health management to psychiatry primary team Continue monitoring mentation patient is counseled To quit smoking and he agrees, order nicotine patch Will do anemia workup Check procalcitonin and proBNP Although aspiration precaution, requested swallow evaluation. And he was soft diet, dysphagia chopped diet. Discussed with the staff Patient will require close outpatient follow-up upon discharge We will follow-up with the patient
[2024-08-23] MEDS: risperiDONE ODT 1 MG TAB PO SCH (21:39)
[2024-08-24] MEDS: chlorproMAZINE 25 MG TAB PO PRN (05:48)
[2024-08-24 07:51] LABS: VLDL Calculation 12.34 mg/dL (5.00-40.00)
--- NOTE | 2024-08-24 10:13 | XR ---
EXAMINATION TYPE: XR chest 1V DATE OF EXAM: 08/24/2024 COMPARISON: 08/23/2024 HISTORY: 69 year-old male shortness of breath TECHNIQUE: Single frontal view of the chest is obtained. FINDINGS: Heart upper limits of normal in size. Diffuse interstitial densities persist. No sizable p leural effusion. IMPRESSION: Borderline heart size and similar diffuse interstitial densities. Some possibilities inc lude CHF with pulmonary vascular congestion versus atypical pneumonias. [facility], , 08/24/2024 10:11 AM
--- NOTE | 2024-08-24 10:16 | P.PN ---
Progress Note - Text Interval history: per nursing staff, patient choked himself yesterday afternoon. Patient was eventually redirectable. Patient received when necessary for seen at 5 AM. Later in the day, patient was seen in another patient's room, but he was redirected to go back to his room. PAt this time patient denies any suicidal or homicidal ideations intent or plan. Denies any Auditory or visual hallucinations. Patient denies any side effects from the medications and has been compliant with meds. Mental status exam: General Appearance: [Patient appears to be older than stated age is alert, directable, and cooperative.] Behavior: bizarre Speech: Patient's speech is fluent and nonpressured. Mood/Affect: Mood is improving mildly, affect is congruent and constricted. Suicidality/Homicidality: Patient denies having any suicidal or homicidal ideation intent or plan. Perceptions: Patient denies any auditory or visual hallucinations. Though content/process: delusional Memory and concentration: AOX3, grossly intact for the purposes of this session Judgment and insight: improving mildly Assessment/Plan: Continue with current diagnosis. Patient continues to meet criteria for inpatient psychiatric admission for symptom stabilization and safety.[iincrease Risperdal to 2 mg twice a day. Continue other medications. Monitor for medication compliance and for any psychotropic medication side effects. Will continue to monitor ongoing response to treatment. Encouraged participation in milieu.
[2024-08-24 10:28] LABS: Basophils % (A) 1 %; Eosinophils # (A) 0.4 k/uL (0-0.7); Eosinophils % (A) 5 %; HCT 35.6 % (39.0-53.0); HGB 11.3 gm/dL (13.0-17.5); Hypochromasia Moderate; Lymphocytes # (A) 1.6 k/uL (1.0-4.8); Lymphocytes % (A) 21 %; MCH 30.1 pg (25.0-35.0); MCHC 31.7 g/dL (31.0-37.0); Mean Platelet Volume 7.2; Monocytes # (A) 0.4 k/uL (0-1.0); Monocytes % (A) 5 %; Neutrophils # (A) 5.1 k/uL (1.3-7.7); Neutrophils % (A) 67 %; Platelet Count 421 k/uL (150-450); RBC 3.74 m/uL (4.30-5.90); RDW 14.8 % (11.5-15.5); WBC 7.6 k/uL (3.8-10.6)
[2024-08-24 10:49] LABS: African American GFR (CKD) >90 (>60 ml/min/1.73 sqM); Anion Gap 6 mmol/L; Blood Urea Nitrogen 12 mg/dL (9-20); Calcium 9.2 mg/dL (8.4-10.2); Carbon Dioxide 22 mmol/L (22-30); Chloride 114 mmol/L (98-107); Glucose 90 mg/dL (74-99); Non-African American GFR(CKD) 89 (>60 ml/min/1.73 sqM); Potassium 4.6 mmol/L (3.5-5.1); Sodium 142 mmol/L (137-145)
[2024-08-24] MEDS: BENZTROPINE MESYLATE 1 MG TAB PO SCH (12:20)
[2024-08-24] MEDS: AMOXIC-POT CLAV 875-125MG 1 EACH TAB PO SCH (15:40)
[2024-08-24] MEDS: risperiDONE ODT 1 MG TAB PO SCH (21:54)
[2024-08-25 09:03] LABS: % Iron Saturation 4.95 (15.00-50.00); Ferritin 27.2 ng/mL (22.0-322.0); Iron 19 UG/DL (65-175); Total Iron Binding Capacity 384 UG/DL (228-460)
--- NOTE | 2024-08-25 13:27 | P.PN ---
Progress Note - Text Progress Note Date: 08/25/24 Interval History: Patient was seen wandering the hallways and was directable and agreeable to reilly reyes with physician underwriter in the office. I met with the patient he currently denies any racing thoughts. But stated that he has not slept for over a day. When asking about his energy level he went on about energy drinks. He notes that his appetite and concentration are good. He feels that he has no depression but notes that he has moderate anxiety. During the interview times the patient had to be redirected onto the subject.. At this time patient denies any suicidal or homical ideations, intent or plan. Patient denies any auditory, visual hallucinations and denies any paranoia or delusions. Patient denies any side effects from the medications and has been compliant with meds. Collateral: Patient gave me permission to speak to his brother Dionisio [phone]. Patient's brother notes that there are no firearms at the house. He notes that he has significant mood swings periodically. His girlfriend notes that he has them every 3 months. Brother thinks this is directly connected to drugs. Mental Status Exam: General Appearance: Patient appears to be stated age is alert, directable, and cooperative. Behavior: Patient is calmly seated without any agitated behavior. Speech: Patient's speech is fluent and mild pressured. Mood/Affect: Mood is improving mildly, affect is congruent and constricted. Suicidality/Homicidality: Patient denies having any suicidal or homicidal ideation intent or plan. Perceptions: Patient denies any visual hallucinations and denies any auditory hallucinations Though content/process: There is no evidence of any delusional thought content and thought process is linear and goal-directed. Memory and concentration: AOX3, grossly intact for the purposes of this session Judgment and insight: Improving mildly Assessment Patient continues to present somewhat confused. He is willing to take Depakote as long as it is 250 mg twice daily. He presented slightly manic but was pleasant during the interview. Diagnoses: Schizoaffective disorders, bipolar type Episode of aspiration while in mental health unit followed by hammock maneuver with chest x-ray showing possible interstitial pneumonitis versus CHF Substance abuse with methamphetamine/amphetamine, cocaine and marijuana anemia , normocytic. Hypertension Hypothyroidism CHF, without acute exacerbation Nicotine dependence Plan: -Patient is admitted under involuntary status to [facility] for stabilization of psychiatric symptoms and safety. Patient has signed adult voluntary form and medication consent and is placed in patient's chart. -Medications : Risperidone 2 mg M tab take 1 sublingually twice daily for schizoaffective disorder Start patient on Depakote 250 mg twice daily for schizoaffective disorder -Ativan and presenting PRN for agitation/aggression -Patient was informed of the risks, benefits and side effects of the medication and patient verbally consented to taking the medications. -Internal Medicine consult to perform medical evaluation and physical. -Smoker -SW on board for discharge planning. Encourage patient to participate in groups to work on coping skills.
[2024-08-25] MEDS: DIVALPROEX 250 MG TABLET.DR PO SCH (21:04)
[2024-08-26 07:17] VITALS: RESP 18
[2024-08-26] MEDS: CYANOCOBALAMIN 500 MCG TAB PO SCH (08:49)
[2024-08-26] MEDS ORDERED: CYANOCOBALAMIN 500 MCG TAB PO SCH (09:00)
[2024-08-26] MEDS: FERROUS SULFATE 325 MG TAB PO SCH (12:23)
--- NOTE | 2024-08-26 14:14 | P.PN ---
Progress Note - Text Progress Note Date: 08/26/24 Chief Complaint: "manic" Interval History: Patient was seen wandering the hallways and was directable and agreeable to speak with telegraphic typewriter operator in the office. Patient notes that slept last night and got roughly 6 hours. He notes that his concentration is good but he states that he has been ruminating on this girl that he needs to find. He notes that his energy and appetite are good. Denies any mood swings, depression or anxiety.. At this time patient denies any suicidal or homical ideations, intent or plan. Patient denies any auditory, visual hallucinations and denies any paranoia or delusions. Patient denies any side effects from the medications and has been compliant with meds. Mental Status Exam: General Appearance: Patient appears to be stated age is alert, directable, and cooperative. Behavior: Patient is calmly seated without any agitated behavior. Speech: Patient's speech mildly nonfluent and mildly pressured. Mood/Affect: Mood is hypomanic but improved, affect is congruent and constricted. Suicidality/Homicidality: Patient denies having any suicidal or homicidal ideation intent or plan. Perceptions: Patient denies any visual hallucinations and denies any auditory hallucinations Though content/process: There is no evidence of any delusional thought content and thought process circumstantial and goal-directed. Memory and concentration: AOX3, grossly intact for the purposes of this session Judgment and insight: Improving mildly Assessment Patient infusion has improved but still struggles with connecting his thoughts. Patient did sleep last night. He presented hypomanic but was pleasant during the interview. Hospitalization is still needed in order to stabilizing the patient. Diagnoses: Schizoaffective disorders, bipolar type Episode of aspiration while in mental health unit followed by hammock maneuver with chest x-ray showing possible interstitial pneumonitis versus CHF Substance abuse with methamphetamine/amphetamine, cocaine and marijuana anemia , normocytic. Hypertension Hypothyroidism CHF, without acute exacerbation Nicotine dependence Plan: -Patient is admitted under involuntary status to [facility] for stabilization of psychiatric symptoms and safety. Patient has signed adult voluntary form and medication consent and is placed in patient's chart. -Medications : * Risperidone 2 mg M tab take 1 sublingually twice daily for schizoaffective disorder * Depakote 250 mg twice daily for schizoaffective disorder -Ativan and presenting PRN for agitation/aggression -Patient was informed of the risks, benefits and side effects of the medication and patient verbally consented to taking the medications. -Internal Medicine consult to perform medical evaluation and physical. -Smoker -SW on board for discharge planning. Encourage patient to participate in groups to work on coping skills.
[2024-08-27 10:29] VITALS: BP 106/60; PULSE 112; TEMP 97
--- NOTE | 2024-08-27 13:31 | P.PN ---
Progress Note - Text Progress Note Date: 08/27/24 Chief complaint: "Manic". Interval History: Patient was seen [wandering the hallways] and was directable and agreeable to speak with lyric writer in the office. Patient was quite joyful during the interview. He denies any depression but notes that he has anxiety about returning to his family. He denies any mood swings or racing thoughts. He feels that his sleep, energy, appetite and concentration are normal.. At this time patient denies any suicidal or homical ideations, intent or plan. Patient denies any auditory, visual hallucinations and denies any paranoia or delusions. Patient denies any side effects from the medications and has been compliant with meds. Mental Status Exam: General Appearance: [Patient appears to be stated age is alert, directable, and cooperative.] Behavior: [Patient is calmly seated without any agitated behavior.] Speech: Patient's speech is fluent and nonpressured. Mood/Affect: Mood is improving mildly, affect is congruent and constricted. Suicidality/Homicidality: Patient denies having any suicidal or homicidal ideation intent or plan. Perceptions: Patient denies any visual hallucinations [and denies any auditory hallucinations] Though content/process: [There is no evidence of any delusional thought content and thought process is linear and goal-directed.] Memory and concentration: AOX3, grossly intact for the purposes of this session Judgment and insight: Improving mildly Diagnoses: Schizoaffective disorders, bipolar type Episode of aspiration while in mental health unit followed by hammock maneuver with chest x-ray showing possible interstitial pneumonitis versus CHF Substance abuse with methamphetamine/amphetamine, cocaine and marijuana anemia , normocytic. Hypertension Hypothyroidism CHF, without acute exacerbation Nicotine dependence Assessment: Patient's presenting improved today we will get labs prior to discharge. Co ntinue hospitalization to complete stabilization. Discharge tomorrow Plan: -Patient is admitted under involuntary status to [facility] for stabilization of psychiatric symptoms and safety. Patient has signed adult voluntary form and medication consent and is placed in patient's chart. -Medications : * Risperidone 2 mg M tab take 1 sublingually twice daily for schizoaffective disorder * Depakote 250 mg twice daily for schizoaffective disorder -Labs * CBC * Liver function * Valproic acid -Ativan and presenting PRN for agitation/aggression -Patient was informed of the risks, benefits and side effects of the medication and patient verbally consented to taking the medications. -Internal Medicine consult to perform medical evaluation and physical. -Smoker -SW on board for discharge planning. Encourage patient to participate in groups to work on coping skills.
[2024-08-27 17:03] LABS: Basophils % (A) 1 %; Eosinophils # (A) 0.2 k/uL (0-0.7); Eosinophils % (A) 2 %; HCT 31.8 % (39.0-53.0); HGB 10.2 gm/dL (13.0-17.5); Hypochromasia Slight; Lymphocytes # (A) 1.6 k/uL (1.0-4.8); Lymphocytes % (A) 19 %; MCH 29.8 pg (25.0-35.0); MCHC 32.1 g/dL (31.0-37.0); Mean Platelet Volume 7.1; Monocytes # (A) 0.5 k/uL (0-1.0); Monocytes % (A) 6 %; Neutrophils # (A) 5.9 k/uL (1.3-7.7); Neutrophils % (A) 70 %; Platelet Count 395 k/uL (150-450); RBC 3.42 m/uL (4.30-5.90); RDW 14.4 % (11.5-15.5); WBC 8.4 k/uL (3.8-10.6)
[2024-08-27 17:28] LABS: Bilirubin, Delta 0.2 mg/dL (0.0-0.2); Bilirubin,Unconjugated 0.3 mg/dL (0.0-1.1); Total Bilirubin 0.5 mg/dL (0.2-1.3); Total Protein 6.8 g/dL (6.3-8.2)
[2024-08-27 17:33] LABS: Valproic Acid (Depakene) 29.8 ug/mL
--- NOTE | 2024-08-28 11:34 | P.DS ---
Providers Date of admission: 08/22/24 20:04 Expected date of discharge: 08/28/24 Attending physician: Jose Vick MD Admission HPI: Admission note was completed by Dr. Rivera "per chart, patient presented for homicidal ideations. Manager Highway attempted to interview patient, however patient was floridly psychotic. Patient made several illogical statements, and was giving typewriter assembler to her off the unit and displaying bizarre behavior. He later got agitated and needed emergency medications." Hospital course: Upon admission to the unit patient was directable and agreeable to commence treatment and signed adult voluntary form. Patient got along well with other patients on the unit and followed unit protocol. Patient was compliant with the medications and denied any side effects throughout hospital course. Patient was started on Risperdal M-Tab 2 mg take 1 tab sublingually twice daily, Depakote 250 mg twice daily. Patient had lab work prior to discharge labs were within normal range. Patient spoke of his stressors and engaged in therapy both group and individual. Patient was also seen by medical team for history and physical exam. Throughout the course of the hospitalization patient gradually improved with regards to mood, anxiety, sleep and returned back to their baseline level of functioning became more future oriented with improved insight and judgment, however at 1 point patient became agitated and had to be given emergency medical treatment.. On the day of discharge patient denied any suicidal or homicidal ideations intent or plan denied any auditory or visual hallucinations. Patient endorsed wanting to live for their health and family. The patient denied any access to guns or weapons. Patient denied any paranoia and did not endorse any delusions. Patient does not have a significant history of substance abuse and was counseled on abstaining from all substances including alcohol and marijuana. Patient elected to do outpatient substance use treatment program through their outpatient provider.. Patient was also counseled on the medications and need for regular compliance and was encouraged to follow-up with their outpatient appointment for mental health and also for primary care. Prior to discharge a family meeting will be arranged by social services designee to answer any questions and ensure safety upon discharge incuding making sure that guns/weapons are either removed from the home or locked away. Day of discharge patient denied any suicidal or homicidal ideations. He notes that he had no psychotic symptoms including auditory or visual hallucinations. He notes no problems with mood including mood swings or depression. He notes that he is not anxious. He had voiced being excited about going [id number] with his children (pseudo children). Mental status exam: General Appearance: Patient appears to be his stated age is alert, pleasant, and cooperative. Patient is in no acute distress and has improved hygiene and grooming Behavior: Patient is calmly seated without any agitated behavior. Speech: Patient's speech is fluent and nonpressured. Mood/Affect: Patient reports their mood is "better good", affect is congruent and euthymic. Suicidality/Homicidality: Patient denies having any suicidal or homicidal ideation intent or plan. Perceptions: Patient denies any auditory or visual hallucinations. Though content/process: There is no evidence of any delusional thought content and thought process is linear and goal-directed. More future oriented Memory and concentration: AOX3, grossly intact for the purposes of this session. Judgment and insight: Chronically poor, however has improved with guarded prognosis Impression: Schizoaffective disorders, bipolar type Episode of aspiration while in mental health unit followed by hammock maneuver with chest x-ray showing possible interstitial pneumonitis versus CHF Substance abuse with methamphetamine/amphetamine, cocaine and marijuana anemia , normocytic. Hypertension Hypothyroidism CHF, without acute exacerbation Nicotine dependence Plan: -Continue with discharge today as patient has improved and stabilized psychiatrically and is not currently an imminent threat to themself and/or others. -Continue medications: * Risperidone 2 mg M tab take 1 sublingually twice daily for schizoaffective disorder * Depakote 250 mg twice daily for schizoaffective disorder * -Patient was counseled on the need for medication compliance and appropriate follow-up at mental health and also primary care for medical issues. Patient verbalized understanding and agreed. -Social work to help coordinate patients discharge today arrange for and conduct family meeting to ensure safety upon discharge and answer any questions/concerns. also to ensure safe home environment that guns/weapons are either removed from the home or locked away. Social work also to arrange for patients follow up appointments with [facility] for psychiatric care along with follow up with primary care provider. -Patient counseled on abstaining from recreational drugs and marijuana and alcohol. Was informed/educated on the adverse effects on their physical and mental health. Patient verbally agreed and understood. -Patient was instructed to return to the hospital or seek immediate medical care if their psychiatric or medical symptoms do worsen or reoccur. Consults: 08/22/24 20:17 Consult Physician Routine Consulting Provider: [facility] Hospitalists Consult Reason/Comments: H&P and medical Do you want consulting provider notified?: Yes, Notify in am Primary care physician: Portia Santana Plan - Discharge Summary Discharge Rx Participant: Yes New Discharge Prescriptions: New Amoxic-Pot Clav 875-125Mg [Augmentin 875-125] 1 each PO Q12HR 1 Days #2 tab Nicotine 14Mg/24Hr Patch [Habitrol] 1 patch TRANSDERM DAILY 14 Days #14 patch Ferrous Sulfate [Iron (65 MG Elemental)] 325 mg PO W/LUNCH 30 Days #30 tab Benztropine Mesylate [Cogentin] 1 mg PO BID 30 Days #30 tab Divalproex [Depakote] 250 mg PO BID 30 Days #60 tab risperiDONE ODT [RisperDAL M-TAB] 2 mg PO BID 30 Days #120 tab Discontinued Divalproex ER [Depakote ER] 1,000 mg PO HS ARIPiprazole [Abilify Maintena] 200 mg IM Q28D [place] Carbonate ER [Lithobid] 450 mg PO BID@0900,1700 Discharge Medication List Amoxic-Pot Clav 875-125Mg [Augmentin 875-125] 1 each PO Q12HR 1 Days #2 tab 08/28/24 [Rx] Benztropine Mesylate [Cogentin] 1 mg PO BID 30 Days #30 tab 08/28/24 [Rx] Divalproex [Depakote] 250 mg PO BID 30 Days #60 tab 08/28/24 [Rx] Ferrous Sulfate [Iron (65 MG Elemental)] 325 mg PO W/LUNCH 30 Days #30 tab 08/28/24 [Rx] Nicotine 14Mg/24Hr Patch [Habitrol] 1 patch TRANSDERM DAILY 14 Days #14 patch 08/28/24 [Rx] risperiDONE ODT [RisperDAL M-TAB] 2 mg PO BID 30 Days #120 tab 08/28/24 [Rx] Follow up Appointment(s)/Referral(s): [facility] [Outside] - 08/29/24 2:30 pm (08/29/2024 2:30PM - 3:00PM CHITO HOGAN ) Jennifer Molina MD [STAFF PHYSICIAN] - 2 Weeks (Pt needs a follow up appt prior to d/c. Manager [address] attempted to call but the office is closed. Will leave a message for team to attempt scheduling prior to d/c.) Portia Santana MD [Primary Care Provider] - 1-2 days Discharge Disposition: HOME SELF-CARE
== END 2024-08-28 13:15 | disposition home or self-care (01) | DRG 885 ==
LOC: EC 13:33 → 3MHU 20:04
PROVIDERS: ADMIT Psychiatry & Neurology Psychiatry; ATTEND Psychiatry & Neurology Psychiatry
DX: F25.0 Schizoaffective disorder, bipolar type (principal); D64.9 Anemia, unspecified; E03.9 Hypothyroidism, unspecified; F12.10 Cannabis abuse, uncomplicated; F14.10 Cocaine abuse, uncomplicated; F17.200 Nicotine dependence, unspecified, uncomplicated; F41.9 Anxiety disorder, unspecified; I11.0 Hypertensive heart disease with heart failure; I50.9 Heart failure, unspecified; J10.1 Influenza due to other identified influenza virus with other respiratory manifestations; R45.850 Homicidal ideations; Z79.899 Other long term (current) drug therapy; Z91.199 Patient's noncompliance with other medical treatment and regimen due to unspecified reason; Z11.52 Encounter for screening for COVID-19
CPT/HCPCS: 71045; 80048; 80053; 80061; 80076; 80164; 80178; 80306; 82075; 82272; 82607; 82728; 82746; 83036; 83540; 83550; 84443; 85025; 87636; 99285